=== PATIENT | female | born 1980 | race Caucasian/White ===

== ENCOUNTER 2017-09-13 19:39 | Emergency (ER) | payer SELFPAY ==
[~2017-09-13] VITALS: Ht 167.6 cm; Wt 93.0 kg
[~2017-09-13 19:39] MED LIST: CLON0.5T3; CYCL10TA9 PO; HYDR-1231 PO; METR500T PO; MTF500T PO; NF-VYVAN20; ONDA8TAB13 PO; OXYC-199 PO; PRD20T PO
--- OUTSIDE RECORDS SUMMARY | 2017-09-13 19:47 | XMS REPORT ---
Author Author NISH SHIELDS [facility] Address [address] [place] [address] Care Team Providers Care Cloth Reeler Name Role Phone NISH SHIELDS Unavailable PROBLEMS Type Condition ICD9-CM Code [id number] Code Onset Dates Condition Status SNOMED Code Problem Attention deficit hyperactivity disorder (ADHD), combined type F90.2 Active 302910710 Problem Moderate episode of recurrent major depressive disorder F33.1 Active 127825603 Problem Posttraumatic stress disorder F43.10 Active 11030340 Problem Leukorrhea, not specified as infective 623.5 Active 033523278 Problem Screening examination for venereal disease V74.5 Active 168177737 ALLERGIES No Information SOCIAL HISTORY Never Assessed PLAN OF CARE Activity Details Follow Up 3 Weeks Reason:Depression, ADHD VITAL SIGNS MEDICATIONS Unknown Medications RESULTS No Results PROCEDURES Procedure Date Ordered Result Body Site Psychotherapy, patient &/family, 30 minutes, established patient February 22, 2017 IMMUNIZATIONS No Known Immunizations MEDICAL (GENERAL) HISTORY Type Description Date Medical History Depression Medical History Anxiety Medical History ADHD Surgical History Gallbladder Removal Surgical History Appendectomy Surgical History x 2 Hospitalization History Surgery/childbirth
--- OUTSIDE RECORDS SUMMARY | 2017-09-13 19:47 | XMS REPORT | Continuity of Care Document ---
Author Author Formerly [facility] Address Unknown Phone Unavailable Allergies Active Description Code Type Severity Reaction Onset Reported/Identified Relationship to Patient Clinical Status Yes No Known Drug Allergies [id number] Drug Allergy Unknown N/A 01/24/2013 Medications There is no data. Problems Date Dx Coded Attending Type Code Diagnosis Diagnosed By 09/09/2009 FLO SIMON PHD 296.90 EPISODIC MOOD DISORDERS 09/09/2009 FLO SIMON PHD 525.9 tooth pain 09/09/2009 FLO SIMON PHD 626.0 menstrual periods stopped for over 6 months (amenorrhea) 09/09/2009 FLO SIMON PHD 780.79 feelings of weakness 09/09/2009 [facility] RN, SALLIE A 296.90 EPISODIC MOOD DISORDERS 09/09/2009 [facility] RN, SALLIE A 525.9 tooth pain 09/09/2009 [facility] RN, SALLIE A 626.0 menstrual periods stopped for over 6 months (amenorrhea) 09/09/2009 [facility] RN, SALLIE A 780.79 feelings of weakness 09/09/2009 [facility] RN, SALLIE A 296.90 EPISODIC MOOD DISORDERS 09/09/2009 [facility] RN, SALLIE A 525.9 tooth pain 09/09/2009 [facility] RN, SALLIE A 626.0 menstrual periods stopped for over 6 months (amenorrhea) 09/09/2009 [facility] RN, SALLIE A 780.79 feelings of weakness 04/22/2011 FLO SIMON PHD 314.01 ADHD COMBINED 04/22/2011 [facility] RN, SALLIE A 314.01 ADHD COMBINED 04/22/2011 [facility] RN, SALLIE A 314.01 ADHD COMBINED 05/24/2011 FLO SIMON PHD 300.02 AN GEN ANXIETY 05/24/2011 SALLIE VORA APRN A 300.02 AN GEN ANXIETY 05/24/2011 SALLIE VORA APRN 300.02 AN GEN ANXIETY 10/20/2011 FLO SIMON PHD 309.81 AN PTSD 10/20/2011 ADRIANNE VORA APRNIDI Tray 309.81 AN PTSD 10/20/2011 SALLIE VORA APRN 309.81 AN PTSD 04/04/2014 SALLIE VORA APRN 623.5 LEUKORRHEA NOT SPECIFIED INFECTIVE 04/04/2014 SALLIE VORA APRN V74.5 STD SCREEN 04/04/2014 SALLIE VORA APRN 623.5 LEUKORRHEA NOT SPECIFIED INFECTIVE 04/04/2014 SALLIE VORA APRN V74.5 STD SCREEN Procedures Code [place] [address] PSYCH DIAGNOSTIC EVALUATION 03/26/2014 51712 GC/CHLAM PROBE (STATE) 04/04/2014 82937 TEST, URINE (IN- HOUSE) 04/04/2014 99425 CULTURE UROGENITAL 04/07/2014 21997 TRICHOMONAS (IN-HOUSE) 04/09/2014 Results There is no data. Encounters ACCT No. Visit Date/Time Discharge Status Pt. Type Provider Facility Loc./Unit Complaint [id number] 04/04/2014 11:40:00 04/04/2014 23:59:59 CLS Outpatient SALLIE VORA APRN [id number] 04/04/2014 11:40:00 04/04/2014 23:59:59 CLS Outpatient SALLIE VORA APRN [id number] 03/25/2014 11:09:00 03/25/2014 23:59:59 CLS Outpatient FLO SIMON PHD [id number] 05/21/2014 22:15:00 05/21/2014 23:19:00 DIS Emergency [id number] 05/16/2014 11:15:00 05/16/2014 17:20:00 DIS Outpatient [id number] 05/15/2014 13:01:00 05/15/2014 23:59:59 CLS Outpatient [id number] 05/05/2014 11:01:00 05/05/2014 13:34:00 DIS Emergency [id number] 11/08/2013 01:34:00 11/08/2013 04:15:00 DIS Emergency [id number] 01/24/2013 15:58:00 01/24/2013 18:57:00 DIS Emergency [id number] 09/13/2017 19:43:00 ACT Emergency ELE DE LEON, ANGELICA Mcguire Via [facility] ER 10 WKS PREG/STOMACH PAIN
--- OUTSIDE RECORDS SUMMARY | 2017-09-13 19:47 | XMS REPORT ---
Author Author CHELSI Hartley Organization [facility] Address Unknown Care Team Providers Care Dump Worker Name Role Phone CHELSI Hartley Unavailable PROBLEMS Type Condition ICD9-CM Code HIS96-DY Code Onset Dates Condition Status SNOMED Code Problem Attention deficit hyperactivity disorder (ADHD), combined type F90.2 Active 524543932 Problem Moderate episode of recurrent major depressive disorder F33.1 Active 457089438 Problem Posttraumatic stress disorder F43.10 Active 27329067 Problem Leukorrhea, not specified as infective 623.5 Active 207434270 Problem Screening examination for venereal disease V74.5 Active 653770990 ALLERGIES No Known Allergies SOCIAL HISTORY Never Assessed PLAN OF CARE Activity Details Follow Up 4 Weeks Reason: VITAL SIGNS Height 66 in 2017-01-31 Weight 210.7 lbs 2017-01-31 Heart Rate 80 bpm 2017-01-31 Respiratory Rate 20 2017-01-31 BMI 34.00 kg/m2 2017-01-31 Blood pressure systolic 132 mmHg 2017-01-31 Blood pressure diastolic 86 mmHg 2017-01-31 MEDICATIONS Medication Instructions Dosage Frequency Start Date End Date Duration Status Adderall 20 MG Orally twice a day 1 tablet January, 30 days Active Trileptal 300 MG Orally-voucher twice a day 1 tablet January, 30 days Active RESULTS No Results PROCEDURES Procedure Date Ordered Result Body Site Psych diagnostic evaluation w/medical services, new patient January 31, 2017 IMMUNIZATIONS No Known Immunizations MEDICAL (GENERAL) HISTORY Type Description Date Medical History Depression Medical History Anxiety Medical History ADHD Surgical History Gallbladder Removal Surgical History Appendectomy Surgical History x 2 Hospitalization History Surgery/childbirth
--- NOTE | 2017-09-13 19:54 | ED Abdominal Pain ---
General Stated Complaint: 10 WKS PREG/STOMACH PAIN Source of Information: Patient Exam Limitations: No Limitations History of Present Illness Time Seen By Provider: 19:53 Initial Comments To ER with bilateral lower abdominal pains that began this morning. Pains are worse with certain movements and are sharp. She is 10 weeks' gestation, . No vaginal bleeding. She has not had an ultrasound but she did have a positive test confirmed at the [facility]. Timing/Duration: 12-24 Hours Severity/Quality: Moderate Location: Suprapubic Radiation: No Radiation Activities at Onset: None Allergies and Home Medications Allergies Coded Allergies: No Known Drug Allergies (Unverified , 01/24/13) Home Medications Metformin Hcl 500 Mg Tablet, 500 MG PO BID WITH MEALS, (Reported) Oxycodone Hcl/Acetaminophen 1 Tab Tablet, 1-2 TAB PO Q6H, #35 Prescribed by: ADRI ESPINO on 05/16/14 1524 Review of Systems Constitutional: see HPI EENTM: No Symptoms Reported Respiratory: No Symptoms Reported Cardiovascular: No Symptoms Reported Gastrointestinal: See HPI, Abdominal Pain, Denies Constipated, Denies Diarrhea , Denies Nausea Genitourinary: No Symptoms Reported, Denies Discharge (no vaginal bleeding) Musculoskeletal: no symptoms reported Skin: no symptoms reported Psychiatric/Neurological: No Symptoms Reported Endocrine: No Symptoms Reported Past Rmpgsnv-Gvfzcr-Rhbliw Hx Patient Social History Recent Foreign Travel: No Contact w/Someone Who Travel: No Reproductive System Hx Reproductive Disorders: No Sexually Transmitted Disease: No Psychosocial Behavioral Health Disorders: Anxiety Physical Exam Vital Signs VS - Last 72 Hours, by Label 09/13/17 19:45 Temp 97.0 Pulse 95 Resp 20 B/P (MAP) 119/91 (100) Pulse Ox 98 O2 Delivery Room Air Capillary Refill : General Appearance: WD/WN, no apparent distress HEENT: PERRL/EOMI, normal ENT inspection Neck: non-tender, full range of motion Respiratory: no respiratory distress, no accessory muscle use Cardiovascular: regular rate, rhythm, no murmur Gastrointestinal: normal bowel sounds, non tender, soft Extremities: normal range of motion, non-tender, normal inspection Neurologic/Psychiatric: alert, normal mood/affect, oriented x 3 Skin: normal color, warm/dry Progress/Results/Core Measures Results/Orders Lab Results Laboratory Tests Test 09/13/17 19:55 09/13/17 20:09 Range/Units Urine Color YELLOW Urine Clarity CLEAR Urine pH 6 5-9 Urine Specific [place] 1.015 L 1.016-1.022 Urine Protein NEGATIVE NEGATIVE Urine Glucose (UA) 3+ H NEGATIVE Urine Ketones NEGATIVE NEGATIVE Urine Nitrite NEGATIVE NEGATIVE Urine Bilirubin NEGATIVE NEGATIVE Urine Urobilinogen NORMAL NORMAL MG/DL Urine Leukocyte Esterase NEGATIVE NEGATIVE Urine RBC (Auto) NEGATIVE NEGATIVE Urine RBC NONE /HPF Urine WBC 2-5 /HPF Urine Squamous Epithelial Cells 5-10 /HPF Urine Crystals NONE /LPF Urine Bacteria MODERATE H /HPF Urine Casts NONE /LPF Urine Mucus NEGATIVE /LPF Urine Culture Indicated NO White Blood Count 15.1 H 4.3-11.0 10^3/uL Red Blood Count 4.48 4.35-5.85 10^6/uL Hemoglobin 13.2 11.5-16.0 G/DL Hematocrit 38 35-52 % Mean Corpuscular Volume 85 80-99 FL Mean Corpuscular Hemoglobin 30 25-34 PG Mean Corpuscular Hemoglobin Concent 35 32-36 G/DL Red Cell Distribution Width 12.6 10.0-14.5 % Platelet Count 383 130-400 10^3/uL Mean Platelet Volume 10.5 H 7.4-10.4 FL Neutrophils (%) (Auto) 63 42-75 % Lymphocytes (%) (Auto) 29 12-44 % Monocytes (%) (Auto) 7 0-12 % Eosinophils (%) (Auto) 1 0-10 % Basophils (%) (Auto) 0 0-10 % Neutrophils # (Auto) 9.5 H 1.8-7.8 X 10^3 Lymphocytes # (Auto) 4.4 H 1.0-4.0 X 10^3 Monocytes # (Auto) 1.1 H 0.0-1.0 X 10^3 Eosinophils # (Auto) 0.1 0.0-0.3 10^3/uL Basophils # (Auto) 0.0 0.0-0.1 10^3/uL Neutrophils % (Manual) 71 % Lymphocytes % (Manual) 26 % Monocytes % (Manual) 2 % Eosinophils % (Manual) 0 % Basophils % (Manual) 0 % Band Neutrophils 1 % Blood Morphology Comment NORMAL Human Chorionic Gonadotropin, Quant 95288 H <5 MIU/ML My Orders Orders - JAKE BRANCH SPECIALTY THERAPIST Cbc With Automated Diff (09/13/17 19:51) Hcg,Quantitative (09/13/17 19:51) Ua Culture If Indicated (09/13/17 19:51) Us Ob Single Fetus<14 [id number] (09/13/17 19:51) Manual Differential (09/13/17 20:09) Vital Signs/I&O Vital Sign - Last 12Hours 09/13/17 19:45 Temp 97.0 Pulse 95 Resp 20 B/P (MAP) 119/91 (100) Pulse Ox 98 O2 Delivery Room Air Departure Impression Impression: Primary Impression: Round ligament pain Disposition: HOME, SELF-CARE Condition: Stable Departure-Patient Inst. Decision time for Depature: 21:07 Referrals: HERB TRUONG DENNIS G MD NO,LOCAL PHYSICIAN (PCP) Primary Care Physician PHILIPPE TAN DO Patient Instructions: Round Ligament Pain Add. Discharge Instructions: 1. Return to ER for any concerns 2. Call one of the physicians listed to make an appointment to be seen. JAKE BRANCH SPECIALTY THERAPIST Sep 13, 2017 19:54
[2017-09-13 20:08] LABS: BILIRUBIN,URINE NEGATIVE (NEGATIVE); KETONES,URINE NEGATIVE (NEGATIVE); LEUKOCYTE ESTERASE ,URINE NEGATIVE (NEGATIVE); NITRITE,URINE NEGATIVE (NEGATIVE); PH,URINE 6 (5-9); PROTEIN,URINE NEGATIVE (NEGATIVE); UROBILINOGEN,URINE NORMAL (NORMAL)
[2017-09-13 20:27] LABS: BASOPHILS % (AUTO) 0 % (0-10); EOSINOPHILS # (AUTO) 0.1 10^3/uL (0.0-0.3); EOSINOPHILS % (AUTO) 1 % (0-10); LYMPHOCYTES # (AUTO) 4.4 X 10^3 (1.0-4.0); LYMPHOCYTES % (AUTO) 29 % (12-44); MEAN CORPUSCULAR HEMOGLOBIN 30 PG (25-34); MEAN CORPUSCULAR HGB CONC 35 G/DL (32-36); MEAN CORPUSCULAR VOLUME 85 FL (80-99); MEAN PLATELET VOLUME 10.5 FL (7.4-10.4); MONOCYTES # (AUTO) 1.1 X 10^3 (0.0-1.0); MONOCYTES % (AUTO) 7 % (0-12); NEUTROPHILS # (AUTO) 9.5 X 10^3 (1.8-7.8); NEUTROPHILS % (AUTO) 63 % (42-75); PLATELET COUNT 383 10^3/uL (130-400); RED BLOOD COUNT 4.48 10^6/uL (4.35-5.85); RED CELL DISTRIBUTION WIDTH 12.6 % (10.0-14.5); WHITE BLOOD COUNT 15.1 10^3/uL (4.3-11.0)
[2017-09-13 20:56] LABS: BAND NEUTROPHILS 1 %; BASOPHILS % (MANUAL) 0 %; EOSINOPHILS % (MANUAL) 0 %; LYMPHOCYTES % (MANUAL) 26 %; NEUTROPHILS % (MANUAL) 71 %
--- NOTE | 2017-09-13 21:16 | Diagnostic Imaging Report ---
PROCEDURE: US OB SINGLE FETUS <14 WKS. TECHNIQUE: Multiple real-time grayscale images were obtained over the gravid uterus in various projections. INDICATION: Cramping. FINDINGS: A hendrix intrauterine gestation measures 10 weeks 2 days for a date of confinement 04/09/2018. No subchorionic or geovanna-sac hemorrhage or fluid collection. Cardiac activity at a rate of 150 beats per minute. A right ovarian cyst measuring 2.6 cm showed no suspicious feature. There is no adnexal torsion. No extrauterine gestation. IMPRESSION: Early hendrix viable IUP measuring 10 weeks 2 days. Dictated by: Dictated on workstation # [id number]
[2017-09-13 21:29] VITALS: BP 120/88
== END 2017-09-13 21:29 | disposition home or self-care (01) ==
LOC: EDUNIT# 19:39 → ER 19:43
DX: O99.89 Other specified diseases and conditions complicating pregnancy, childbirth and the puerperium (principal); R10.2 Pelvic and perineal pain; O99.341 Other mental disorders complicating pregnancy, first trimester; F41.9 Anxiety disorder, unspecified; Z79.84 Long term (current) use of oral hypoglycemic drugs; Z3A.10 10 weeks gestation of pregnancy
CPT/HCPCS: 36415; 76801; 81000; 84702; 85007; 85027; 99283

== ENCOUNTER → 2017-11-15 | Outpatient (CLI) | payer MEDICAID ==
--- NOTE | 2017-11-15 12:49 | Diagnostic Imaging Report ---
INDICATION: survey. TECHNIQUE: Multiple real-time grayscale images were obtained over the gravid uterus. COMPARISON: 09/13/2017. FINDINGS: There is a single live fetus in a transverse presentation, head to maternal right. The placenta is posterior. The amniotic fluid volume is normal. heart rate was recorded at 152 beats per minute. kidneys and four-chamber heart view were not well visualized due to position. bladder and stomach are unremarkable. Intracranial structures are unremarkable. There is a three-vessel cord with normal cord insertion. spine is unremarkable. Biometrical measurements are as follows: Biparietal 4.3 cm, age 19 weeks 1 days. Head circumference 16.5 cm, age 19 weeks 2 days. Abdominal circumference 13.9 cm, age 19 weeks 3 days. Femur length 3.0 cm, age 19 weeks 3 days. Sonographic estimate age: 19 weeks 3 days. Sonographic estimated date of delivery: 04/08/18. Estimated Weight: 286 gm (+/- 42 gm). LMP percentile: 47%. heart rate: 152 beats per minute. number: 1 of 1. IMPRESSION: Single live IUP approximately 19 weeks 3 days gestational age with an estimated date of confinement of 04/08/2018. Note is made that the four-chamber heart view and kidney views are not well visualized due to position. Followup ultrasound could be performed. Dictated by: Dictated on workstation # [id number]
== END ==
LOC: RAD 10:10
PROVIDERS: ATTEND Family Medicine
DX: Z36.89 Encounter for other specified antenatal screening (principal); Z3A.19 19 weeks gestation of pregnancy
CPT/HCPCS: 76805

== ENCOUNTER 2017-12-25 22:42 | Outpatient (CLI) | payer MEDICAID ==
[~2017-12-25] VITALS: Ht 167.6 cm; Wt 109.4 kg
[2017-12-25] MEDS ORDERED: PREN-53 PO (23:00)
[2017-12-25 23:10] VITALS: BP 118/76
[2017-12-25] MEDS ORDERED: ACETAMINOPHEN 500 MG TAB (TYLENOL) ONE (23:34)
[2017-12-25] MEDS ORDERED: ACETAMINOPHEN 500 MG TAB (TYLENOL) PO ONE (23:45)
--- NOTE | 2017-12-26 12:19 | Physician Query-Final Dx ---
LAURENCE WOODS 12/26/17 1219: Clinic Account Progress/Dx Physician Query: Please give diagnosis Date of Service Dec 25, 2017 at 22:42 WILBERT PEARSON MD 12/27/17 0717: Clinic Account Progress/Dx DIAGNOSIS: Diagnosis 1. IUP in 2nd trimester 2. Headache 3. Decreased movement--reassuring pattern LAURENCE WOODS Dec 26, 2017 12:19 WILBERT PEARSON MD Dec 27, 2017 07:17
== END 2017-12-25 23:45 | disposition home or self-care (01) ==
LOC: WSo 22:42 → LDRP 22:43 → WSo 23:45
PROVIDERS: ATTEND Family Medicine
DX: O99.89 Other specified diseases and conditions complicating pregnancy, childbirth and the puerperium (principal); R51 Headache; O36.8120 Decreased fetal movements, second trimester, not applicable or unspecified; Z3A.25 25 weeks gestation of pregnancy
CPT/HCPCS: 99212

== ENCOUNTER → 2018-01-04 | Outpatient (CLI) | payer MEDICAID ==
[~2018-01-04] MED LIST changes: +PREN-53 PO
--- NOTE | 2018-01-04 15:40 | Diagnostic Imaging Report ---
INDICATION: Followup kidneys and four-chamber heart. TECHNIQUE: Multiple real-time grayscale images were obtained over the gravid uterus. COMPARISON: 11/15/2017. FINDINGS: There is a single live fetus in a cephalic presentation. The placenta is posterior. The amniotic fluid volume is normal. A limited survey does show the kidneys and four-chamber heart on today's study. heart rate was recorded at 172 beats per minute. Biometrical measurements are as follows: Biparietal 6.61 cm, age 26 weeks 5 days. Head circumference 25.74 cm, age 28 weeks 0 days. Abdominal circumference 25.5 cm, age 29 weeks 5 days. Femur length 5.38 cm, age 28 weeks 4 days. Sonographic estimate age: 28 weeks 2 days. Sonographic estimated date of delivery: 03/27/18. Estimated Weight: 1305 gm (+/- 191 gm). LMP percentile: 98%. heart rate: 172 beats per minute. number: 1 of 1. IMPRESSION: Single live IUP at approximately 28 weeks gestational age. The kidneys and four-chamber heart view were visualized on today's study and appear unremarkable. Dictated by: Dictated on workstation # [id number]
== END ==
LOC: RAD 13:38
PROVIDERS: ATTEND Family Medicine
DX: Z34.92 Encounter for supervision of normal pregnancy, unspecified, second trimester (principal); Z3A.24 24 weeks gestation of pregnancy
CPT/HCPCS: 76816

== ENCOUNTER 2018-02-12 15:44 | Outpatient (CLI) | payer MEDICAID ==
[~2018-02-12] VITALS: Ht 167.6 cm; Wt 109.4 kg
[~2018-02-12 15:44] MED LIST changes: +METF500T5 PO
[2018-02-12 16:06] VITALS: BP 125/86
[2018-02-12 16:25] VITALS: BP 120/64
[2018-02-12 16:45] VITALS: BP 117/72
[2018-02-12 17:00] VITALS: BP 121/79
[2018-02-12 19:55] VITALS: BP 155/87
[2018-02-12 20:00] VITALS: BP 125/66
--- NOTE | 2018-02-13 20:17 | Physician Query-Final Dx ---
JUDE WOODS 02/13/18 2017: Clinic Account Progress/Dx Physician Query: Please give diagnosis Date of Service February 12, 2018 at 15:44 ROXI RAMIREZ DO 02/13/182047: Clinic Account Progress/Dx DIAGNOSIS: Diagnosis O9A.213 - Injury, poisoning and certain other consequences of external causes complicating , third trimester W01.1 - Fall on same level from slipping, tripping and stumbling with subsequent striking against object Z67.10 - Type A Blood, Rh Positive JUDE WOODS February 13, 2018 20:17 ROXI RAMIREZ DO February 13, 2018 20:48
== END 2018-02-12 20:20 | disposition home or self-care (01) ==
LOC: WSo 15:44 → LDRP 15:44 → WSo 20:20
PROVIDERS: ATTEND Family Medicine
DX: O9A.213 Injury, poisoning and certain other consequences of external causes complicating pregnancy, third trimester (principal); W01.10XA Fall on same level from slipping, tripping and stumbling with subsequent striking against unspecified object, initial encounter; Z67.10 Type A blood, Rh positive; Z3A.32 32 weeks gestation of pregnancy
CPT/HCPCS: 85460; 86850; 86900; 86901; 99213

== ENCOUNTER 2018-02-17 16:48 | Outpatient (CLI) | payer MEDICAID ==
[~2018-02-17] VITALS: Ht 168.9 cm; Wt 108.9 kg
[2018-02-17 17:15] VITALS: BP 109/65
[2018-02-17 17:42] LABS: BILIRUBIN,URINE NEGATIVE (NEGATIVE); CLARITY,URINE CLEAR; COLOR,URINE YELLOW; GLUCOSE, URINE (UA) NEGATIVE (NEGATIVE); KETONES,URINE 4+ (NEGATIVE); LEUKOCYTE ESTERASE ,URINE 1+ (NEGATIVE); NITRITE,URINE NEGATIVE (NEGATIVE); PH,URINE 6 (5-9); PROTEIN,URINE NEGATIVE (NEGATIVE); UROBILINOGEN,URINE 1 MG/DL (NORMAL)
[2018-02-17 17:51] LABS: BACTERIA,URINE MODERATE /HPF
[2018-02-17] MEDS ORDERED: NS IV 1000 ML 1,000 ML ONE (18:03)
[2018-02-17] MEDS ORDERED: NS IV 1000 ML 1,000 ML IV ONE (18:15)
[2018-02-17 18:43] LABS: BASOPHILS % (AUTO) 0 % (0-10); EOSINOPHILS # (AUTO) 0.1 10^3/uL (0.0-0.3); EOSINOPHILS % (AUTO) 1 % (0-10); HEMATOCRIT 35 % (35-52); HEMOGLOBIN 11.8 G/DL (11.5-16.0); LYMPHOCYTES # (AUTO) 2.4 X 10^3 (1.0-4.0); LYMPHOCYTES % (AUTO) 23 % (12-44); MEAN CORPUSCULAR HEMOGLOBIN 28 PG (25-34); MEAN CORPUSCULAR HGB CONC 33 G/DL (32-36); MEAN CORPUSCULAR VOLUME 83 FL (80-99); MEAN PLATELET VOLUME 10.5 FL (7.4-10.4); MONOCYTES # (AUTO) 0.7 X 10^3 (0.0-1.0); MONOCYTES % (AUTO) 6 % (0-12); NEUTROPHILS # (AUTO) 7.5 X 10^3 (1.8-7.8); NEUTROPHILS % (AUTO) 70 % (42-75); PLATELET COUNT 256 10^3/uL (130-400); RED BLOOD COUNT 4.26 10^6/uL (4.35-5.85); RED CELL DISTRIBUTION WIDTH 14.2 % (10.0-14.5); WHITE BLOOD COUNT 10.7 10^3/uL (4.3-11.0)
[2018-02-17 18:58] LABS: ALANINE AMINOTRANSFERASE 10 U/L (0-55); ALBUMIN 3.5 GM/DL (3.2-4.5); ALKALINE PHOSPHATASE 59 U/L (40-136); BILIRUBIN,TOTAL 0.3 MG/DL (0.1-1.0); BUN/CREATININE RATIO 18; CALCIUM 8.9 MG/DL (8.5-10.1); CARBON DIOXIDE 17 MMOL/L (21-32); CHLORIDE 109 MMOL/L (98-107); CREATININE SERUM 0.65 MG/DL (0.60-1.30); GFR ESTIMATED > 60; GLUCOSE 92 MG/DL (70-105); POTASSIUM 3.9 MMOL/L (3.6-5.0); SODIUM 136 MMOL/L (135-145); TOTAL PROTEIN 6.9 GM/DL (6.4-8.2)
--- NOTE | 2018-02-21 15:57 | Physician Query-Final Dx ---
JUDE WOODS 02/21/18 1557: Clinic Account Progress/Dx Physician Query: Please give diagnosis Date of Service February 17, 2018 at 16:48 DEEPIKA MONTIEL MD 03/02/18 0940: Clinic Account Progress/Dx DIAGNOSIS: Diagnosis 32 weeks gestation Dizziness Urinary urgency JUDE WOODS February 21, 2018 15:57 DEEPIKA MONTIEL MD Mar 02, 2018 09:40
== END 2018-02-17 20:20 | disposition home or self-care (01) ==
LOC: WSo 16:48 → LDRP 16:48 → WSo 16:57
PROVIDERS: ATTEND Family Medicine
DX: R42 Dizziness and giddiness (principal); R39.15 Urgency of urination; Z3A.32 32 weeks gestation of pregnancy
CPT/HCPCS: 36415; 80053; 81000; 85025; 87088; 96360; 96361; 99213

== ENCOUNTER 2018-03-02 17:20 | Outpatient (CLI) | payer MEDICAID ==
[2018-03-02 17:10] VITALS: BP 123/70
== END 2018-03-02 18:10 | disposition home or self-care (01) ==
LOC: LDRP 17:20 → WSo 17:20
PROVIDERS: ATTEND Family Medicine
DX: O24.419 Gestational diabetes mellitus in pregnancy, unspecified control (principal); Z3A.34 34 weeks gestation of pregnancy
CPT/HCPCS: 59025

== ENCOUNTER → 2018-03-03 | Outpatient (CLI) | payer MEDICAID ==
--- NOTE | 2018-03-03 12:51 | Diagnostic Imaging Report ---
INDICATION: Gestational diabetes. TECHNIQUE: Multiple real-time grayscale images were obtained over the gravid uterus. COMPARISON: 09/13/2017, 11/15/2017, and 01/04/2018. FINDINGS: The prior exam of 01/04/2018 noted a single live fetus at approximately 28 weeks gestation +/-1 week. On this study, the fetus is again identified. The fetus is cephalic in presentation and heart motion was noted with a rate of 143 BPM recorded. There were no obvious abnormalities identified. The growth parameters average at 35 weeks 4 days +/-3.5 weeks. By the first exam, the estimated gestational age should be 34 weeks 5 days. The estimated weight is in the 74th percentile. There were no abnormalities identified. The amniotic fluid index is 10.5 cm (normal 8 to 22 cm). The placenta is posterior and there is no previa. The cervix was not visualized on this study. IMPRESSION: 1. There is a single live fetus at approximately 34 weeks 5 days gestation +/-1 week. The EDC is 04/09/2018. 2. There were no obvious abnormalities identified. 3. The growth parameters have progressed as expected since the prior exam tending towards the high side of normal. Biometrical measurements are as follows: Biparietal 8.5 cm, age 34 weeks 2 days. Head circumference 30.1 cm, age 34 weeks 4 days. Abdominal circumference 34.2 cm, age 38 weeks 1 days. Femur length 6.8 cm, age 34 weeks 6 days. Sonographic estimate age: 35 weeks 4 days. Sonographic estimated date of delivery: 04/03/18. Estimated Weight: 2945 gm (+/- 430 gm). LMP percentile: 90%. heart rate: 143 beats per minute. number: 1 of 1. Dictated by: Dictated on workstation # [id number]
== END ==
LOC: RAD 10:15
PROVIDERS: ATTEND Family Medicine
DX: O24.419 Gestational diabetes mellitus in pregnancy, unspecified control (principal); Z3A.34 34 weeks gestation of pregnancy
CPT/HCPCS: 76816

== ENCOUNTER 2018-03-07 15:53 | Outpatient (CLI) | payer MEDICAID ==
[~2018-03-07] VITALS: Ht 168.9 cm; Wt 108.9 kg
[2018-03-07] MEDS ORDERED: ONDANSETRON 4 MG (ZOFRAN) ORAL DISSOLVE TAB PO ONE (17:15)
[2018-03-07] MEDS ORDERED: NS IV 1000 ML 1,000 ML IV ONE (17:15)
[2018-03-07 19:50] VITALS: BP 110/66
--- NOTE | 2018-03-08 23:41 | Physician Query-Final Dx ---
JUDE WOODS 03/08/18 2341: Clinic Account Progress/Dx Physician Query: Please give diagnosis Date of Service Mar 07, 2018 at 15:53 WILBERT PEARSON MD 03/09/18 0757: Clinic Account Progress/Dx DIAGNOSIS: Diagnosis 1. Intrauterine at 34 weeks gestation 2. Gestational diabetes JUDE WOODS Mar 08, 2018 23:41 WILBERT PEARSON MD Mar 09, 2018 07:57
== END 2018-03-07 20:08 | disposition home or self-care (01) ==
LOC: WSo 15:53 → LDRP 15:55 → WSo 20:08
PROVIDERS: ATTEND Family Medicine
DX: O24.419 Gestational diabetes mellitus in pregnancy, unspecified control (principal); Z3A.34 34 weeks gestation of pregnancy
CPT/HCPCS: 96360; 99213

== ENCOUNTER 2018-03-15 19:00 | Outpatient (CLI) | payer MEDICAID ==
[2018-03-15 19:59] VITALS: BP 112/66
--- NOTE | 2018-03-16 14:48 | Physician Query-Final Dx ---
LAURENCE WOODS 03/16/18 1448: Clinic Account Progress/Dx Physician Query: Please give diagnosis Date of Service Mar 15, 2018 at 19:00 WILBERT PEARSON MD 03/17/18 0722: Clinic Account Progress/Dx DIAGNOSIS: Diagnosis 1. Gestational diabetes 2. IUP at 36 weeks. LAURENCE WOODS Mar 16, 2018 14:48 WILBERT PEARSON MD Mar 17, 2018 07:22
== END 2018-03-15 20:00 ==
LOC: WSo 19:00 → LDRP 19:01 → WSo 20:00
PROVIDERS: ATTEND Family Medicine
DX: O24.419 Gestational diabetes mellitus in pregnancy, unspecified control (principal); Z3A.36 36 weeks gestation of pregnancy
CPT/HCPCS: 59025

== ENCOUNTER 2018-03-22 06:05 | Inpatient (IN) | payer MEDICAID ==
[~2018-03-22] VITALS: Ht 168.9 cm; Wt 108.0 kg
[~2018-03-22 06:05] MED LIST changes: +CITRIC ACID/SOB CIT (BICITRA) 30 ML UDC ONE; +LACTATED RINGERS 1,000 ML IV ONE; +METOCLOPRAMIDE INJ 10 MG/2 ML (REGLAN) ONE; +raNItidine 50 MG/2 ML INJ (ZANTAC) ONE
[2018-03-22 06:15] VITALS: BP 110/72
[2018-03-22] MEDS ORDERED: ceFAZolin 2 GM IV Premixed 50 ML IV ONE (06:15)
--- OUTSIDE RECORDS SUMMARY | 2018-03-22 06:17 | XMS REPORT ---
Author Author NISH SHIELDS Organization [facility] Address [address] [place] [address] Care Team Providers Care Vp Respiratory Name Role Phone ALYSON NISH Unavailable PROBLEMS Type Condition ICD9-CM Code PUJ07-FO Code Onset Dates Condition Status SNOMED Code Problem Screening examination for venereal disease V74.5 Active 046974431 Problem Unspecified mood [affective] disorder F39 Active 62834204 Problem Screening for substance abuse Z13.89 Active 416056176 Problem Posttraumatic stress disorder F43.10 Active 36761078 Problem Leukorrhea, not specified as infective 623.5 Active 684317039 Problem Attention deficit hyperactivity disorder (ADHD), combined type F90.2 Active 520563787 Problem Moderate episode of recurrent major depressive disorder F33.1 Active 915531331 ALLERGIES No Information ENCOUNTERS Encounter Location Date Diagnosis [place] [id number] [place] [address] 06829- 6162 Dec, [place] [address] [address]- 6231 Dec, [place] [id number] [place] [address] 61629- 4991 Dec, [place] [id number] [place] [address] 20009- 3422 30 Nov, 2017 Elevated serum glucose R73.9 [place] [id number] [place] [address] 77427- 4029 Nov, [place] [address] [address]- [address] Nov, [facility] [address] [place] [address] Nov, Encounter for examination and observation for unspecified reason Z04.9 [facility] [address] [place] [address] 22 Nov, 2017 Encounter for examination and observation for unspecified reason Z04.9 [place] [id number] [place] [address] 48067- 0249 21 Nov, 2017 Unspecified mood [affective] disorder F39 [place] [id number] [place] [address] 48904- 0326 21 Nov, 2017 Elevated serum glucose R73.9 [place] [id number] [place] [address] 61835- 9893 14 Nov, 2017 care in second trimester Z34.92 [place] [id number] [place] [address] 19860- 6826 09 Nov, 2017 Screening for substance abuse Z13.89 [place] [id number] [place] [address] 39441- 4400 14 Oct, 2017 Second trimester Z34.92 [place] [id number] [place] [address] 14707- 6879 14 Oct, 2017 [place] [id number] [place] [address] 60352- 7935 Sep, Screening for deficiency anemia Z13.0 [place] [id number] [place] [address] 58475- 9909 Sep, [place] [id number] [place] [address] 50632- 5878 Sep, [place] [id number] [place] [address] 81591- 9715 Sep, Normal in multigravida Z34.80 and Moderate episode of recurrent major depressive disorder F33.1 [place] [id number] [place] [address] 69176- 4457 Sep, [place] [id number] [place] [address] 92896- 1291 Mar, Posttraumatic stress disorder F43.10 ; ADHD (attention deficit hyperactivity disorder) evaluation Z13.89 and Moderate episode of recurrent major depressive disorder F33.1 [facility] [address] [facility] [id number] [address] 15 Feb, 2017 Posttraumatic stress disorder F43.10 [facility] [id number] [address] Feb, Posttraumatic stress disorder F43.10 ; ADHD (attention deficit hyperactivity disorder) evaluation Z13.89 and Moderate episode of recurrent major depressive disorder F33.1 [facility] [id number] [address] January, Moderate episode of recurrent major depressive disorder F33.1 and Attention deficit hyperactivity disorder (ADHD), combined type F90.2 [facility] [id number] [address] 5016 January, Posttraumatic stress disorder F43.10 [facility] [id number] [address] 6066 January, [facility] [id number] [address] 7283 January, Posttraumatic stress disorder F43.10 ; Moderate episode of recurrent major depressive disorder F33.1 and Attention deficit hyperactivity disorder (ADHD), combined type F90.2 [facility] [id number] [address] 8141 January, Posttraumatic stress disorder F43.10 ; ADHD (attention deficit hyperactivity disorder) evaluation Z13.89 and Moderate episode of recurrent major depressive disorder F33.1 [facility] [address] [facility] [id number], [place] [address] January, Moderate episode of recurrent major depressive disorder F33.1 and Posttraumatic stress disorder F43.10 [facility] [id number] [place] [address] 0448 Nov, Posttraumatic stress disorder F43.10 ; ADHD (attention deficit hyperactivity disorder) evaluation Z13.89 and Moderate episode of recurrent major depressive disorder F33.1 [place] [address] [id number] [place] [address] 4201 14 Dec, 2014 [facility] [place] [facility] [address] [id number] [place] [address] 8197 Dec, [facility] [place] [facility] [address] [id number] [place] [address] 7236 Mar, [facility] [place] [facility] [address] [id number] [place] [address] 1053 Mar, [facility] [place] [facility] [address] [id number] [place] [address]- 4304 Mar, [facility] [place] [facility] [address] [id number] [place] [address]- 0644 Mar, [facility] [place] [facility] [address] [id number] [place] [address]- 5955 Mar, [facility] [place] [facility] [address] [id number] [place] [address]- 1312 Mar, [facility] [place] [facility] [address] [id number] [place] [address]- 3204 Mar, [facility] [place] [facility] [address] [id number] [place] [address]- 0110 Mar, [facility] [place] [facility] [address] [id number] [place] [address]- 2859 Feb, [facility] [place] [facility] [address] [id number] [place] [address]- 3756 Feb, [facility] [place] [facility] [address] [id number] [place] [address]- 4324 May, [facility] [place] [facility] [address] [id number] [place] [address]- 0391 January, [facility] [place] [facility] [address] [id number] [place] [address]- 4374 Dec, [facility] [place] [facility] [address] [id number] [place] [address]- 5030 28 Nov, 2011 [facility] [id number] [address]- 8008 Nov, [facility] [address], [place] [address]- 9906 Nov, [facility] [address], [place] [address]- 8916 Nov, [facility] [address], [place] [address]- 1319 Oct, [facility] [address], [place] [address]- 2885 Sep, [facility] [address], [place] [address]- 1636 Sep, [facility] [address], [place] [address]- 0766 Sep, [facility] [address], [place] [address]- 6429 Sep, [facility] [address], [place] [address]- 3366 Aug, [facility] [address], [place] [address]- 8018 Aug, [facility] [id number], [place] [address]- 7856 Aug, IMMUNIZATIONS No Known Immunizations SOCIAL HISTORY Never Assessed REASON FOR VISIT f/u PLAN OF CARE Activity Details Follow Up 4 Weeks Reason:PTSD, ADHD, Depression VITAL SIGNS MEDICATIONS Unknown Medications RESULTS No Results PROCEDURES Procedure Date Ordered Result Body Site Psychotherapy, patient &/family, 30 minutes, established patient March 08, 2017 INSTRUCTIONS MEDICATIONS ADMINISTERED No Known Medications MEDICAL (GENERAL) HISTORY Type Description Date Medical History Depression Medical History Anxiety Medical History ADHD Surgical History Gallbladder Removal Surgical History Appendectomy Surgical History x 2 Hospitalization History Surgery/childbirth
--- OUTSIDE RECORDS SUMMARY | 2018-03-22 06:17 | XMS REPORT ---
Author Author WILBERT PEARSON [facility] Address [address] [place] [address] Care Team Providers Care Retail Advisor Name Role Phone WILBERT PEARSON Unavailable PROBLEMS Type Condition ICD9-CM Code [id number] Code Onset Dates Condition Status SNOMED Code Problem Leukorrhea, not specified as infective 623.5 Active 551914731 Problem Screening examination for venereal disease V74.5 Active 922415457 Problem ADHD, predominantly inattentive type F90.0 Active 51208648 Problem Unspecified mood [affective] disorder F39 Active 12956756 Problem Moderate episode of recurrent major depressive disorder F33.1 Active 285601884 Problem Posttraumatic stress disorder F43.10 Active 38953950 Problem Screening for substance abuse Z13.89 Active 402765514 Problem Attention deficit hyperactivity disorder (ADHD), combined type F90.2 Active 910395454 ALLERGIES No Known Allergies ENCOUNTERS Encounter Location Date Diagnosis [place] [id number] [place] [address] 19751- 8796 31 Mar, 2018 [facility] [place] [facility] [id number] [place] [address] 03681- 1733 27 Feb, 2018 [facility] [place] [facility] [id number] [place] [address] 75608- 8875 Feb, [facility] [place] [facility] [id number] [place] [address] 62668- 0363 Feb, Encounter for supervision of normal in third trimester Z34.93 [facility] [place] [facility] [id number] [place] [address] 39631- 2789 13 Feb, 2018 Third trimester Z34.93 [facility] [place] [facility] [id number] [place] [address] 23943- 4029 13 Feb, 2018 [facility] [place] [facility] [id number] [place] [address]- 2490 Feb, Third trimester Z34.93 [facility] [place] [facility] [id number] [place] [address] 98046- 5408 January, Elevated serum glucose R73.9 and Gestational diabetes mellitus (GDM) in third trimester controlled on oral hypoglycemic drug O24.[address] [facility] [id number] [place] [address] 60150 -7640 January, [facility] [place] [facility] [id number] [place] [address] 81111- 6892 January, [facility] [place] [facility] [address] 67[address]- 2977 January, Third trimester Z34.93 [facility] [place] [facility] [id number] [place] [address] 08547- 8357 January, [facility] [place] [facility] [id number] [place] [address] 61518- 1861 January, Third trimester Z34.93 and Encounter for immunization Z23 [facility] [place] [facility] [id number] [place] [address] 58191- 3166 January, Posttraumatic stress disorder F43.10 and Unspecified mood [ affective] disorder F39 [facility] [place] [facility] [id number] [place] [address] 34533- 8400 January, Posttraumatic stress disorder F43.10 ; Unspecified mood [ affective] disorder F39 and ADHD, predominantly inattentive type F90.0 [facility] [place] [facility] [id number] [place] [address] 46088- 4998 January, [facility] [place] [facility] [id number] [place] [address] 08417- 4215 Dec, Second trimester Z34.[address] [facility] [id number] [place] [address] 68588 -8675 Dec, [facility] [place] [facility] [id number] [place] [address] 01439- 4312 Dec, [facility] [place] [facility] [id number] [place] [address] 74020- 8267 Dec, Screening for deficiency anemia Z13.0 [facility] [place] [facility] [id number] [place] [address] 01985- 7649 Dec, Posttraumatic stress disorder F43.10 ; Unspecified mood [ affective] disorder F39 and ADHD, predominantly inattentive type F90.0 [facility] [place] [facility] [id number] [place] [address] 62865- 6773 Dec, care in second trimester Z34.92 [facility] [place] [facility] [id number] [place] [address] 31103- 1181 Dec, [facility] [place] [facility] [id number] [place] [address] 05982- 7748 Dec, [facility] [place] [facility] [id number] [place] [address] 46704- 2554 Dec, Second trimester Z34.92 [facility] [place] [facility] [id number] [place] [address] 15025- 0282 Dec, [facility] [place] [facility] [id number] [place] [address] 40030- 8070 Nov, Elevated serum glucose R73.9 [facility] [place] [facility] [id number] [place] [address] 63210- 6627 Nov, Unspecified mood [affective] disorder F39 [facility] [place] [facility] [id number] [place] [address] 74756- 1062 Nov, [facility] [address] [place] [address] Nov, Encounter for examination and observation for unspecified reason Z04.9 [facility] [address] [place] [address] Nov, Encounter for examination and observation for unspecified reason Z04.9 [facility] [place] [facility] [id number] [place] [address] 05940- 5669 Nov, Unspecified mood [affective] disorder F39 [facility] [place] [facility] [address] [address]- 2814 Nov, Elevated serum glucose R73.9 [facility] [place] [facility] [address] [address]- 8440 14 Nov, 2017 care in second trimester Z34.92 [facility] [place] [facility] [id number] [place] [address] 88925- 7476 09 Nov, 2017 Screening for substance abuse Z13.89 [facility] [place] [facility] [address] [address]- 5988 14 Oct, 2017 Second trimester Z34.92 [facility] [place] [facility] [id number] [place] [address] 29972- 0336 14 Oct, 2017 [facility] [place] [facility] [id number] [place] [address] 18710- 5962 Sep, Screening for deficiency anemia Z13.0 [facility] [place] [facility] [address] [address]- 8380 Sep, [facility] [place] [facility] [id number] [place] [address] 71825- 0038 Sep, [facility] [place] [facility] [address] [address]- 5866 Sep, Normal in multigravida Z34.80 and Moderate episode of recurrent major depressive disorder F33.1 [facility] [place] [facility] [address] [address]- 4288 Sep, [facility] [place] [facility] [id number] [place] [address] 78970- 4402 Mar, Posttraumatic stress disorder F43.10 ; ADHD (attention deficit hyperactivity disorder) evaluation Z13.89 and Moderate episode of recurrent major depressive disorder F33.1 [facility] [place] [facility] [address] [address]- 1403 Feb, Posttraumatic stress disorder F43.10 [facility] [place] [facility] [address] [facility] [id number] [place] [address]- 3185 Feb, Posttraumatic stress disorder F43.10 ; ADHD (attention deficit hyperactivity disorder) evaluation Z13.89 and Moderate episode of recurrent major depressive disorder F33.1 [facility] [place] [facility] [address] [facility] [id number] [place] [address]- 4596 January, Moderate episode of recurrent major depressive disorder F33.1 and Attention deficit hyperactivity disorder (ADHD), combined type F90.2 [facility] [place] [facility] [address] [id number] [place] [address]- 6046 January, Posttraumatic stress disorder F43.10 [facility] [place] [facility] [address] [facility] [id number] [place] [address]- 3296 January, [facility] [place] [facility] [address] [facility] [id number] [place] [address]- 1076 January, Posttraumatic stress disorder F43.10 ; Moderate episode of recurrent major depressive disorder F33.1 and Attention deficit hyperactivity disorder (ADHD), combined type F90.2 [facility] [place] [facility] [address] [facility] [id number] [place] [address]- 8213 January, Posttraumatic stress disorder F43.10 ; ADHD (attention deficit hyperactivity disorder) evaluation Z13.89 and Moderate episode of recurrent major depressive disorder F33.1 [facility] [place] [facility] [address] [facility] [id number] [place] [address]- 5776 January, Moderate episode of recurrent major depressive disorder F33.1 and Posttraumatic stress disorder F43.10 [facility] [place] [facility] [address] [facility] [id number] [place] [address]- 9102 Nov, Posttraumatic stress disorder F43.10 ; ADHD (attention deficit hyperactivity disorder) evaluation Z13.89 and Moderate episode of recurrent major depressive disorder F33.1 [facility] [place] [facility] [address] [facility] [id number] [place] [address]- 7936 Dec, [facility] [place] [facility] [address] [facility] [id number] [place] [address]- 6850 Dec, [facility] [place] [facility] [address] [id number] [place] [address]- 9652 Mar, [facility] [place] [facility] [address] [id number] [place] [address]- 0490 Mar, [facility] [place] [facility] [address] [id number] [place] [address]- 4119 Mar, [facility] [place] [facility] [address] [id number] [place] [address]- 2550 Mar, [facility] [place] [facility] [address] [id number] [place] [address]- 9858 Mar, [facility] [place] [facility] [address] [id number] [place] [address]- 5061 Mar, [facility] [place] [facility] [address] [id number] [place] [address]- 4630 Mar, [facility] [place] [facility] [address] [id number] [place] [address]- 7824 Mar, [facility] [place] [facility] [address] [id number] [place] [address]- 1774 Feb, [facility] [place] [facility] [address] [id number] [place] [address]- 6295 Feb, [facility] [place] [facility] [address] [id number] [place] [address]- 9774 May, [facility] [place] [facility] [address] [id number] [place] [address]- 1815 January, [facility] [place] [facility] [address] [id number] [place] [address]- 5312 Dec, [facility] [place] [facility] [address] [id number] [place] [address]- 2246 28 Nov, 2011 [facility] [place] [facility] [address] [id number] [place] [address]- 1981 Nov, [facility] [place] [facility] [address] [id number] [address]- 8186 Nov, [facility] [place] [facility] [address] [address]- 5414 Nov, [facility] [place] [facility] [address] [address]- 2842 Oct, [facility] [place] [facility] [address] [address]- 1436 Sep, [facility] [place] [facility] [address] [address]- 1452 Sep, [facility] [place] [facility] [address] [address]- 9935 Sep, [facility] [place] [facility] [address] [address]- 6076 Sep, [facility] [place] [facility] [address] [address]- 7197 Aug, [facility] [place] [facility] [address] [address]- 1479 Aug, [facility] [place] [facility] [address] 9989 Aug, IMMUNIZATIONS No Known Immunizations SOCIAL HISTORY Never Assessed REASON FOR VISIT [id number], Concerned about weight PLAN OF CARE Activity Details Follow Up 4 Weeks, 4 Weeks Reason: VITAL SIGNS Height 66 in 2017-10-12 Weight 226.0 lbs 2017-10-12 Temperature 98.3 degrees Fahrenheit 2017-10-12 Heart Rate 80 bpm 2017-10-12 Respiratory Rate 20 2017-10-12 BMI 36.477 kg/m2 2017-10-12 Blood pressure systolic 112 mmHg 2017-10-12 Blood pressure diastolic 84 mmHg 2017-10-12 MEDICATIONS Medication Instructions Dosage Frequency Start Date End Date Duration Status Trintellix 20 mg Orally twice a day 1 tablet 12h Not-Taking Xanax 1 MG Orally Once a day at bedtime 1 tablet Not-Taking Adderall 20 mg Orally twice a day 1 tablet 12h January, 28 days Not-Taking Diflucan 150 mg take 1 tablet by Oral route once 1 time per day repeat in 3 days Mar, Not-Taking Adderall 20 MG Orally Once a day 1 tablet in the morning 24h Not- Taking Trileptal 300 MG Orally twice a day 1 tablet 12h 08 Jan, 2017 90 days Not-Taking Pre- Active Phentermine HCl 37.5 MG Orally Once a day 1 tablet 24h Not-Taking Fluvoxamine Maleate 50 mg Orally Twice a day .5 tablet 12h Not- Taking RESULTS No Results PROCEDURES Procedure Date Ordered Result Body Site COMPLETE CBC W/AUTO DIFF WBC Oct 12, 2017 SPECIMEN HANDLING Oct 12, 2017 CULTURE, BACTERIA, OTHER Oct 12, 2017 URINE CULTURE/COLONY COUNT Oct 12, 2017 RBC ANTIBODY SCREEN Oct 12, 2017 BLOOD TYPING, ABO Oct 12, 2017 BLOOD TYPING, RH (D) Oct 12, 2017 ASSAY THYROID STIM HORMONE Oct 12, 2017 RUBELLA ANTIBODY Oct 12, 2017 No Charge Oct 12, 2017 ALPHA-FETOPROTEIN, SERUM Oct 12, 2017 INHIBIN A Oct 12, 2017 TRICHOMONAS ASSAY W/OPTIC Oct 12, 2017 ASSAY OF ESTRIOL Oct 12, 2017 CHORIONIC GONADOTROPIN TEST Oct 12, 2017 URINALYSIS, AUTO, W/O SCOPE Oct 12, 2017 VENIPUNCT, ROUTINE* Oct 12, 2017 INSTRUCTIONS MEDICATIONS ADMINISTERED No Known Medications MEDICAL (GENERAL) HISTORY Type Description Date Medical History Depression Medical History Anxiety Medical History ADHD Medical History gestational diabetes Surgical History Gallbladder Removal Surgical History Appendectomy Surgical History x 2 Hospitalization History Surgery/childbirth Hospitalization History Excessive vomiting 12/23/16
--- OUTSIDE RECORDS SUMMARY | 2018-03-22 06:17 | XMS REPORT ---
Author Author WILBERT PEARSON [facility] Address [address] [place] [address] Care Team Providers Care Synoptic Meteorologist Name Role Phone WILBERT PEARSON Unavailable PROBLEMS Type Condition ICD9-CM Code ZBZ26-AB Code Onset Dates Condition Status SNOMED Code Problem Leukorrhea, not specified as infective 623.5 Active 261946914 Problem Screening examination for venereal disease V74.5 Active 589448249 Problem ADHD, predominantly inattentive type F90.0 Active 09335549 Problem Unspecified mood [affective] disorder F39 Active 74548461 Problem Moderate episode of recurrent major depressive disorder F33.1 Active 152036946 Problem Posttraumatic stress disorder F43.10 Active 15994498 Problem Screening for substance abuse Z13.89 Active 422718416 Problem Attention deficit hyperactivity disorder (ADHD), combined type F90.2 Active 278495911 ALLERGIES No Information ENCOUNTERS Encounter Location Date Diagnosis [facility] [id number] [place] [address] 16239- 3370 Mar, [facility] [id number] [place] [address] 37508- 3632 27 Feb, 2018 [facility] [id number] [place] [address] 73937- 1759 Feb, [facility] [id number] [place] [address] 14133- 6444 Feb, Encounter for supervision of normal in third trimester Z34.93 [facility] [id number] [place] [address] 69868- 6786 13 Feb, 2018 Third trimester Z34.93 [facility] [id number] [place] [address] 88910- 0131 13 Feb, 2018 [facility] [address] [place] [address]- 5442 Feb, Third trimester Z34.93 [facility] [id number] [place] [address] 71748- 8226 January, Elevated serum glucose R73.9 and Gestational diabetes mellitus (GDM) in third trimester controlled on oral hypoglycemic drug O24.419 [facility] [id number] [place] [address] 28745 -6132 January, [facility] [id number] [place] [address] 16035- 7181 January, [facility] [address] 79708- 4017 January, Third trimester Z34.93 [facility] [id number] [place] [address] 37479- 5686 January, [facility] [address] 41528- 7772 January, Third trimester Z34.93 and Encounter for immunization Z23 [facility] [id number] [place] [address] 83423- 0794 January, Posttraumatic stress disorder F43.10 and Unspecified mood [ affective] disorder F39 [facility] [id number] [place] [address] 79446- 6322 January, Posttraumatic stress disorder F43.10 ; Unspecified mood [ affective] disorder F39 and ADHD, predominantly inattentive type F90.0 [facility] [id number] [place] [address] 38373- 7512 January, [facility] [id number] [place] [address] 82056- 7818 Dec, Second trimester Z34.92 [facility] [id number] [place] [address] 92638 -6123 Dec, [facility] [id number] [place] [address] 48477- 2380 Dec, [facility] [id number] [place] [address] 51982- 8275 Dec, Screening for deficiency anemia Z13.0 [facility] [id number] [place] [address] 27780- 2030 Dec, Posttraumatic stress disorder F43.10 ; Unspecified mood [ affective] disorder F39 and ADHD, predominantly inattentive type F90.0 [facility] [id number] [place] [address] 03350- 4638 Dec, care in second trimester Z34.92 [facility] [id number] [place] [address] 77604- 7384 Dec, [facility] [id number] [place] [address] 96005- 5627 Dec, [facility] [id number] [place] [address] 07293- 1715 Dec, Second trimester Z34.92 [facility] [id number] [place] [address] 08945- 8781 Dec, [facility] [id number] [place] [address] 15152- 3245 Nov, Elevated serum glucose R73.9 [facility] [id number] [place] [address] 13686- 4626 Nov, Unspecified mood [affective] disorder F39 [facility] [id number] [place] [address] 00971- 7671 Nov, [facility] [address] [place] [address] Nov, Encounter for examination and observation for unspecified reason Z04.9 [facility] [address] [place] [address] Nov, Encounter for examination and observation for unspecified reason Z04.9 [facility] [id number] [place] [address] 79841- 8704 Nov, Unspecified mood [affective] disorder F39 [facility] [address] [address] 5276 Nov, Elevated serum glucose R73.9 [facility] [address] [address]- 2916 14 Nov, 2017 care in second trimester Z34.92 [facility] [address] [place] [address] 58610- 0076 09 Nov, 2017 Screening for substance abuse Z13.89 [facility] [address] [address]- 0958 14 Oct, 2017 Second trimester Z34.92 [facility] [address] [place] [address] 02283- 0428 14 Oct, 2017 [facility] [id number] [place] [address] 25332- 9125 Sep, Screening for deficiency anemia Z13.0 [facility] [address] [address] 2168 Sep, [facility] [id number] [place] [address] 60344- 9540 Sep, [facility] [address] [address]- 9285 Sep, Normal in multigravida Z34.80 and Moderate episode of recurrent major depressive disorder F33.1 [facility] [address] [address]- 4095 Sep, [facility] [address] [place] [address]- 4478 Mar, Posttraumatic stress disorder F43.10 ; ADHD (attention deficit hyperactivity disorder) evaluation Z13.89 and Moderate episode of recurrent major depressive disorder F33.1 [facility] [address] [address]- 5939 Feb, Posttraumatic stress disorder F43.10 [facility] [address] [facility] [id number] [address] 4[address] Feb, Posttraumatic stress disorder F43.10 ; ADHD (attention deficit hyperactivity disorder) evaluation Z13.89 and Moderate episode of recurrent major depressive disorder F33.1 [facility] [address] [facility] [id number] [place] [address]- 7636 January, Moderate episode of recurrent major depressive disorder F33.1 and Attention deficit hyperactivity disorder (ADHD), combined type F90.2 [facility] [address] [facility] [id number] [place] [address]- 1326 January, Posttraumatic stress disorder F43.10 [facility] [address] [facility] [id number] [place] [address]- 7716 January, [facility] [address] [facility] [id number] [place] [address]- 9726 January, Posttraumatic stress disorder F43.10 ; Moderate episode of recurrent major depressive disorder F33.1 and Attention deficit hyperactivity disorder (ADHD), combined type F90.2 [facility] [address] [facility] [id number] [place] [address]- 7016 January, Posttraumatic stress disorder F43.10 ; ADHD (attention deficit hyperactivity disorder) evaluation Z13.89 and Moderate episode of recurrent major depressive disorder F33.1 [facility] [address] [facility] [id number] [place] [address]- 3566 January, Moderate episode of recurrent major depressive disorder F33.1 and Posttraumatic stress disorder F43.10 [facility] [address] [facility] [id number] [place] [address]- 4919 Nov, Posttraumatic stress disorder F43.10 ; ADHD (attention deficit hyperactivity disorder) evaluation Z13.89 and Moderate episode of recurrent major depressive disorder F33.1 [facility] [address] [facility] [id number] [place] [address] 2546 Dec, [facility] [address] [facility] [id number] [address]- 0336 Dec, [facility] [place] [facility] [address] [id number] [place] [address]- 1802 Mar, [facility] [place] [facility] [address] [id number] [place] [address]- 0456 Mar, [facility] [place] [facility] [address] [id number] [place] [address]- 7506 Mar, [facility] [place] [facility] [address] [id number] [place] [address]- 4841 Mar, [facility] [place] [facility] [address] [id number] [place] [address]- 8543 Mar, [facility] [place] [facility] [address] [id number] [place] [address]- 9854 Mar, [facility] [place] [facility] [address] [id number] [place] [address]- 0071 Mar, [facility] [place] [facility] [address] [id number] [place] [address]- 8045 Mar, [facility] [place] [facility] [address] [id number] [place] [address]- 0782 Feb, [facility] [place] [facility] [address] [id number] [place] [address]- 1681 Feb, [facility] [place] [facility] [address] [id number] [place] [address]- 6375 May, [facility] [place] [facility] [address] [id number] [place] [address]- 5573 January, [facility] [place] [facility] [address] [id number] [place] [address]- 3986 Dec, [facility] [place] [facility] [address] [id number] [place] [address]- 7646 28 Nov, 2011 [facility] [place] [facility] [address] [id number] [place] [address]- 5261 Nov, [facility] [place] [facility] [address] [id number], [place] [address]- 3053 Nov, [facility] [id number] [address]- 6130 Nov, [facility] [address], [place] [address]- 6800 Oct, [facility] [address], [place] [address]- 5812 Sep, [facility] [address], [place] [address]- 2876 Sep, [facility] [address], [place] [address]- 9980 Sep, [facility] [address], [place] [address]- 2029 Sep, [facility] [address], [place] [address]- 9728 Aug, [facility] [address], [place] [address]- 9971 Aug, [facility] [address], [place] [address]- 7558 Aug, IMMUNIZATIONS No Known Immunizations SOCIAL HISTORY Never Assessed REASON FOR VISIT Requests return call PLAN OF CARE VITAL SIGNS MEDICATIONS Unknown Medications RESULTS No Results PROCEDURES No Known procedures INSTRUCTIONS MEDICATIONS ADMINISTERED No Known Medications MEDICAL (GENERAL) HISTORY Type Description Date Medical History Depression Medical History Anxiety Medical History ADHD Medical History gestational diabetes Surgical History Gallbladder Removal Surgical History Appendectomy Surgical History x 2 Hospitalization History Surgery/childbirth Hospitalization History Excessive vomiting 12/23/16
--- OUTSIDE RECORDS SUMMARY | 2018-03-22 06:18 | XMS REPORT ---
Author Author NISH SHIELDS Organization [facility] Address [address] [place] [address] Care Team Providers Care Plasterer Journeyman Name Role Phone NISH SHIELDS Unavailable PROBLEMS Type Condition ICD9-CM Code VXG81-PR Code Onset Dates Condition Status SNOMED Code Problem Screening examination for venereal disease V74.5 Active 432329898 Problem Unspecified mood [affective] disorder F39 Active 42973629 Problem Screening for substance abuse Z13.89 Active 685365559 Problem Posttraumatic stress disorder F43.10 Active 41831008 Problem Leukorrhea, not specified as infective 623.5 Active 424690843 Problem Attention deficit hyperactivity disorder (ADHD), combined type F90.2 Active 233271202 Problem Moderate episode of recurrent major depressive disorder F33.1 Active 199508144 ALLERGIES No Information ENCOUNTERS Encounter Location Date Diagnosis [address] [address]- 8628 Dec, [address] 80348- 8723 Dec, [facility] [id number] [place] [address] 41753- 4887 Dec, [facility] [id number] [place] [address] 97768- 5674 Dec, [facility] [id number] [place] [address] 14920- 1820 Nov, Elevated serum glucose R73.9 [facility] [address] 04519- 8101 Nov, [facility] [id number] [place] [address] 87665- 1549 Nov, [address] [place] [address] Nov, Encounter for examination and observation for unspecified reason Z04.9 [facility] [address] [place] [address] Nov, Encounter for examination and observation for unspecified reason Z04.9 [facility] [address] [place] [address] 70548- 2374 Nov, Unspecified mood [affective] disorder F39 [facility] [id number] [place] [address] 98057- 5906 Nov, Elevated serum glucose R73.9 [facility] [id number] [place] [address] 55033- 7723 14 Nov, 2017 care in second trimester Z34.92 [id number] [place] [address] 15460- 4636 09 Nov, 2017 Screening for substance abuse Z13.89 [address] [id number] [place] [address] 45283- 8238 14 Oct, 2017 Second trimester Z34.92 [facility] [id number] [place] [address] 63570- 1944 14 Oct, 2017 [facility] [id number] [place] [address] 29828- 1206 Sep, Screening for deficiency anemia Z13.0 [facility] [id number] [place] [address] 27166- 0844 Sep, [facility] [id number] [place] [address] 65531- 0306 Sep, [facility] [id number] [place] [address] 88457- 6383 Sep, Normal in multigravida Z34.80 and Moderate episode of recurrent major depressive disorder F33.1 [facility] [address] [place] [address] 55125- 5177 Sep, [facility] [address] [address]- 4260 Mar, Posttraumatic stress disorder F43.10 ; ADHD (attention deficit hyperactivity disorder) evaluation Z13.89 and Moderate episode of recurrent major depressive disorder F33.1 [facility] [address] [address]- 6357 Feb, Posttraumatic stress disorder F43.10 [facility] [address] [address]- 9512 Feb, Posttraumatic stress disorder F43.10 ; ADHD (attention deficit hyperactivity disorder) evaluation Z13.89 and Moderate episode of recurrent major depressive disorder F33.1 [facility] [address] [address]- 7730 January, Moderate episode of recurrent major depressive disorder F33.1 and Attention deficit hyperactivity disorder (ADHD), combined type F90.2 [facility] [address] [address]- 3154 January, Posttraumatic stress disorder F43.10 [facility] [address] [address]- 3411 January, [facility] [address] [address]- 1242 January, Posttraumatic stress disorder F43.10 ; Moderate episode of recurrent major depressive disorder F33.1 and Attention deficit hyperactivity disorder (ADHD), combined type F90.2 [facility] [address] [address]- 5022 January, Posttraumatic stress disorder F43.10 ; ADHD (attention deficit hyperactivity disorder) evaluation Z13.89 and Moderate episode of recurrent major depressive disorder F33.1 [facility] [address] [address]- 6626 January, Moderate episode of recurrent major depressive disorder F33.1 and Posttraumatic stress disorder F43.10 [facility] [id number] [address]- 1081 28 Mar, 2017 Posttraumatic stress disorder F43.10 ; ADHD (attention deficit hyperactivity disorder) evaluation Z13.89 and Moderate episode of recurrent major depressive disorder F33.1 [facility] [address] [id number] [place] [address]- 4506 14 Dec, 2014 [facility] [address] [id number] [place] [address]- 0476 Dec, [facility] [address] [id number] [place] [address]- 2213 Mar, [facility] [address] [id number] [place] [address]- 0234 Mar, [facility] [address] [id number] [place] [address]- 0012 Mar, [facility] [address] [facility] [id number] [place] [address]- 3902 Mar, [facility] [address] [facility] [id number] [place] [address]- 3756 Mar, [facility] [address] [facility] [id number] [place] [address]- 3550 Mar, [facility] [address] [facility] [id number] [place] [address]- 8165 Mar, [facility] [address] [facility] [id number] [place] [address]- 1007 Mar, [facility] [address] [facility] [id number] [address]- 0165 Feb, [facility] [address] [id number] [place] [address]- 7166 Feb, [facility] [address] [facility] [id number] [place] [address]576 May, [facility] [address] [facility] [id number] [place] [address]- 5077 January, [facility] [address] [facility] [id number] [place] [address]- 0423 Dec, [facility] [id number] [address]- 3656 Nov, [facility] [address] [address]- 2546 Nov, [facility] [address] [address]- 2546 Nov, [facility] [address] [address]- 2546 Nov, [facility] [address] [address]- 2546 Oct, [facility] [address] [address]- 2546 Sep, [facility] [address] [address]- 2546 Sep, [facility] [address] [address]- 2546 Sep, [facility] [address] [address]- 9086 Sep, [facility] [address] [address]- 0276 Aug, [facility] [id number] [address]- 2066 Aug, [facility] [address] [address]- 2546 Aug, IMMUNIZATIONS No Known Immunizations SOCIAL HISTORY Never Assessed REASON FOR VISIT f/u PLAN OF CARE Activity Details Follow Up 1 Week Reason:Depression VITAL SIGNS MEDICATIONS Unknown Medications RESULTS No Results PROCEDURES Procedure Date Ordered Result Body Site Psychotherapy, patient &/family, 30 minutes, established patient April 14, 2017 INSTRUCTIONS MEDICATIONS ADMINISTERED No Known Medications MEDICAL (GENERAL) HISTORY Type Description Date Medical History Depression Medical History Anxiety Medical History ADHD Surgical History Gallbladder Removal Surgical History Appendectomy Surgical History x 2 Hospitalization History Surgery/childbirth
--- OUTSIDE RECORDS SUMMARY | 2018-03-22 06:18 | XMS REPORT ---
Author Author WILBERT PEARSON [facility] Address [address] [place] [address] Care Team Providers Care Copy Camera Operator Name Role Phone WILBERT PEARSON Unavailable PROBLEMS Type Condition ICD9-CM Code FHL41-TS Code Onset Dates Condition Status SNOMED Code Problem Leukorrhea, not specified as infective 623.5 Active 645923482 Problem Screening examination for venereal disease V74.5 Active 436628001 Problem ADHD, predominantly inattentive type F90.0 Active 84109116 Problem Unspecified mood [affective] disorder F39 Active 63493252 Problem Moderate episode of recurrent major depressive disorder F33.1 Active 439887591 Problem Posttraumatic stress disorder F43.10 Active 13939378 Problem Screening for substance abuse Z13.89 Active 105410320 Problem Attention deficit hyperactivity disorder (ADHD), combined type F90.2 Active 948024656 ALLERGIES No Information ENCOUNTERS Encounter Location Date Diagnosis [facility] [id number] [place] [address] 03621- 8680 Mar, [facility] [id number] [place] [address] 63326- 7426 27 Feb, 2018 [facility] [id number] [place] [address] 02538- 3355 Feb, [facility] [id number] [place] [address] 59855- 7637 Feb, Encounter for supervision of normal in third trimester Z34.93 [facility] [id number] [place] [address] 04223- 9697 13 Feb, 2018 Third trimester Z34.93 [facility] [id number] [place] [address] 22460- 8226 13 Feb, 2018 [facility] [address] [place] [address] 8798 Feb, Third trimester Z34.93 [facility] [id number] [place] [address] 06914- 4342 January, Elevated serum glucose R73.9 and Gestational diabetes mellitus (GDM) in third trimester controlled on oral hypoglycemic drug O24.419 [facility] [id number] [place] [address] 20135 -8830 January, [facility] [id number] [place] [address] 77734- 8239 January, [facility] [address] [address]- 0229 January, Third trimester Z34.93 [facility] [id number] [place] [address] 38656- 0706 January, [facility] [address] 31992- 9399 January, Third trimester Z34.93 and Encounter for immunization Z23 [facility] [id number] [place] [address] 85107- 8629 January, Posttraumatic stress disorder F43.10 and Unspecified mood [ affective] disorder F39 [facility] [id number] [place] [address] 43278- 2153 January, Posttraumatic stress disorder F43.10 ; Unspecified mood [ affective] disorder F39 and ADHD, predominantly inattentive type F90.0 [facility] [id number] [place] [address] 84932- 7080 January, [facility] [id number] [place] [address] 73506- 1791 Dec, Second trimester Z34.92 [facility] [id number] [place] [address] 46685 -2411 Dec, [facility] [id number] [place] [address] 40464- 1262 Dec, [facility] [id number] [place] [address] 33706- 7072 Dec, Screening for deficiency anemia Z13.0 [facility] [id number] [place] [address] 39736- 0711 Dec, Posttraumatic stress disorder F43.10 ; Unspecified mood [ affective] disorder F39 and ADHD, predominantly inattentive type F90.0 [facility] [id number] [place] [address] 32667- 0023 Dec, care in second trimester Z34.92 [facility] [id number] [place] [address] 36305- 8004 Dec, [facility] [id number] [place] [address] 13446- 4844 Dec, [facility] [id number] [place] [address] 27805- 3307 Dec, Second trimester Z34.92 [facility] [id number] [place] [address] 67040- 7494 Dec, [facility] [id number] [place] [address] 52283- 4916 Nov, Elevated serum glucose R73.9 [facility] [id number] [place] [address] 84458- 3767 Nov, Unspecified mood [affective] disorder F39 [facility] [id number] [place] [address] 70709- 7075 Nov, [facility] [address] [place] [address] Nov, Encounter for examination and observation for unspecified reason Z04.9 [facility] [address] [place] [address] Nov, Encounter for examination and observation for unspecified reason Z04.9 [facility] [id number] [place] [address] 69022- 5853 Nov, Unspecified mood [affective] disorder F39 [facility] [address] [address] 16[address] Nov, Elevated serum glucose R73.9 [facility] [address] [address]- 3158 14 Nov, 2017 care in second trimester Z34.92 [facility] [address] [place] [address] 25662- 7309 09 Nov, 2017 Screening for substance abuse Z13.89 [facility] [address] [address] 51[address] 14 Oct, 2017 Second trimester Z34.92 [facility] [address] [place] [address] 26805- 0315 14 Oct, 2017 [facility] [id number] [place] [address] 42823- 8302 Sep, Screening for deficiency anemia Z13.0 [facility] [address] [address] 5509 Sep, [facility] [id number] [place] [address] 96830- 0451 Sep, [facility] [address] [address]- 2713 Sep, Normal in multigravida Z34.80 and Moderate episode of recurrent major depressive disorder F33.1 [facility] [address] [address]- 4941 Sep, [facility] [address] [address]- 7926 Mar, Posttraumatic stress disorder F43.10 ; ADHD (attention deficit hyperactivity disorder) evaluation Z13.89 and Moderate episode of recurrent major depressive disorder F33.1 [facility] [address] [address]- 6047 Feb, Posttraumatic stress disorder F43.10 [facility] [address] [facility] [id number] [address] 1466 Feb, Posttraumatic stress disorder F43.10 ; ADHD (attention deficit hyperactivity disorder) evaluation Z13.89 and Moderate episode of recurrent major depressive disorder F33.1 [facility] [address] [facility] [id number] [place] [address]- 7976 January, Moderate episode of recurrent major depressive disorder F33.1 and Attention deficit hyperactivity disorder (ADHD), combined type F90.2 [facility] [address] [facility] [id number] [place] [address]- 1726 January, Posttraumatic stress disorder F43.10 [facility] [address] [facility] [id number] [place] [address]- 7856 January, [facility] [address] [facility] [id number] [place] [address]- 4366 January, Posttraumatic stress disorder F43.10 ; Moderate episode of recurrent major depressive disorder F33.1 and Attention deficit hyperactivity disorder (ADHD), combined type F90.2 [facility] [address] [facility] [id number] [place] [address]- 9506 January, Posttraumatic stress disorder F43.10 ; ADHD (attention deficit hyperactivity disorder) evaluation Z13.89 and Moderate episode of recurrent major depressive disorder F33.1 [facility] [address] [facility] [id number] [place] [address]- 4186 January, Moderate episode of recurrent major depressive disorder F33.1 and Posttraumatic stress disorder F43.10 [facility] [address] [facility] [id number] [place] [address]- 5593 Nov, Posttraumatic stress disorder F43.10 ; ADHD (attention deficit hyperactivity disorder) evaluation Z13.89 and Moderate episode of recurrent major depressive disorder F33.1 [facility] [address] [facility] [id number] [place] [address] 2546 Dec, [facility] [address] [facility] [id number] [address]- 6626 Dec, [facility] [place] [facility] [address] [id number] [place] [address]- 8128 Mar, [facility] [place] [facility] [address] [id number] [place] [address]- 5099 Mar, [facility] [place] [facility] [address] [id number] [place] [address]- 5004 Mar, [facility] [place] [facility] [address] [id number] [place] [address]- 7943 Mar, [facility] [place] [facility] [address] [id number] [place] [address]- 2767 Mar, [facility] [place] [facility] [address] [id number] [place] [address]- 9354 Mar, [facility] [place] [facility] [address] [id number] [place] [address]- 1134 Mar, [facility] [place] [facility] [address] [id number] [place] [address]- 2914 Mar, [facility] [place] [facility] [address] [id number] [place] [address]- 9626 Feb, [facility] [place] [facility] [address] [id number] [place] [address]- 7955 Feb, [facility] [place] [facility] [address] [id number] [place] [address]- 7043 May, [facility] [place] [facility] [address] [id number] [place] [address]- 4801 January, [facility] [place] [facility] [address] [id number] [place] [address]- 9389 Dec, [facility] [place] [facility] [address] [id number] [place] [address]- 8056 28 Nov, 2011 [facility] [place] [facility] [address] [id number] [place] [address]- 0113 Nov, [facility] [place] [facility] [address] [id number] [address]- 8586 Nov, [facility] [id number] [address]- 0286 Nov, [facility] [address] [address]- 9056 Oct, [facility] [address] [address]- 3126 Sep, [facility] [address] [place] [address] 22868- 3676 Sep, [facility] [address] [address]- 3476 Sep, [facility] [address] [place] [address] 95092- 6686 Sep, [facility] [address] [address]- 0580 Aug, [facility] [address] [address]- 2624 Aug, [facility] [id number] [address]- 2697 Aug, IMMUNIZATIONS No Known Immunizations SOCIAL HISTORY Never Assessed REASON FOR VISIT [facility] Hemoglobin PLAN OF CARE VITAL SIGNS MEDICATIONS Unknown Medications RESULTS Name Result Date Reference Range HEMOGLOBIN (IN HOUSE) 2017-10-19 HEMOGLOBIN 11.7 11.5 - 16 gm/dL Lot # [id number] Exp date 09/01/18 PROCEDURES Procedure Date Ordered Result Body Site HEMOGLOBIN Oct 19, 2017 INSTRUCTIONS MEDICATIONS ADMINISTERED No Known Medications MEDICAL (GENERAL) HISTORY Type Description Date Medical History Depression Medical History Anxiety Medical History ADHD Medical History gestational diabetes Surgical History Gallbladder Removal Surgical History Appendectomy Surgical History x 2 Hospitalization History Surgery/childbirth Hospitalization History Excessive vomiting 12/23/16
[2018-03-22] MEDS ORDERED: METOCLOPRAMIDE INJ 10 MG/2 ML (REGLAN) IV ONE (06:30)
[2018-03-22] MEDS ORDERED: CITRIC ACID/SOB CIT (BICITRA) 30 ML UDC PO ONE (06:30)
[2018-03-22 06:44] LABS: BASOPHILS % (AUTO) 0 % (0-10); EOSINOPHILS # (AUTO) 0.1 10^3/uL (0.0-0.3); EOSINOPHILS % (AUTO) 1 % (0-10); HEMATOCRIT 36 % (35-52); HEMOGLOBIN 12.5 G/DL (11.5-16.0); LYMPHOCYTES # (AUTO) 3.1 X 10^3 (1.0-4.0); LYMPHOCYTES % (AUTO) 29 % (12-44); MEAN CORPUSCULAR HEMOGLOBIN 28 PG (25-34); MEAN CORPUSCULAR HGB CONC 35 G/DL (32-36); MEAN CORPUSCULAR VOLUME 82 FL (80-99); MEAN PLATELET VOLUME 11.2 FL (7.4-10.4); MONOCYTES # (AUTO) 0.7 X 10^3 (0.0-1.0); MONOCYTES % (AUTO) 7 % (0-12); NEUTROPHILS # (AUTO) 6.5 X 10^3 (1.8-7.8); NEUTROPHILS % (AUTO) 62 % (42-75); PLATELET COUNT 268 10^3/uL (130-400); RED BLOOD COUNT 4.43 10^6/uL (4.35-5.85); RED CELL DISTRIBUTION WIDTH 14.2 % (10.0-14.5); WHITE BLOOD COUNT 10.4 10^3/uL (4.3-11.0)
[2018-03-22] MEDS: LACTATED RINGERS 1,000 ML IV PRN ×2 (06:49→07:50)
[2018-03-22] MEDS ORDERED: fentaNYL INJECTION 100 MCG/2 ML AMP ONE (06:50)
[2018-03-22] MEDS ORDERED: LIDOCAINE 1% INJ 20 ML 20 ML VIAL ONE (06:50)
[2018-03-22] MEDS ORDERED: BUPIVACAINE 0.5% 30 ML (SENSORCAINE) VIAL ONE (06:50)
[2018-03-22] MEDS ORDERED: OXYTOCIN/NORMAL SALINE 1,000 ML IV ONE (06:52)
[2018-03-22] MEDS ORDERED: ceFAZolin 2 GM IV Premixed 50 ML ONE (06:55)
--- NOTE | 2018-03-22 07:20 | History & Physical-OB ---
OB - Chief Complaint & HPI Date/Time Date of Admission: Date of Admission: Mar 22, 2018 at 06:05 Time Seen by Provider: 07:05 Chief Complaint/History OB-Reason for Admission/Chief: Section Hx : 3 Hx Para: 2 Expected Date of Delivery: Apr 08, 2018 Gestational Age in Weeks: 37 Gestational Age in Days: 4 Indication for : desires repeat Other reason for admission: Delivery due to borderline oligo, GDM, and AMA Admission Nurse Assessment Rev: Yes History of Labs A pos Antibody neg RI RPR NR HBsAg NR HIV NR GC neg Allergies and Home Medications Allergies Coded Allergies: No Known Drug Allergies (Unverified , 03/20/18) Home Medications Metformin HCl 500 Mg Tablet, 1,000 PO BID, (Reported) take 2 in am and 1 at night Btx356/Iron Fumarate/FA/Dss 1 Each Tablet, 1 EACH PO DAILY, (Reported) Patient Home Medication List Home Medication List Reviewed: Yes OB - History Hx of Present Care: Yes Ultrasounds: Normal mid trimester US, Other (most recent US 5 cm HIREN, limited imaging due to body hab) Obstetrical Complications: Gestational Diabetes Medical Complications: Other (AMA) Delivery History Hx Blood Disorders: No Adverse Rxn to Tranfusion: No (N/A) Patient Past Medical History BMI 37 Social History/Family History HIV/AIDS: No Recent Infectious Disease Expo: No Sexually Transmitted Disease: No Alcohol Use: Denies Use Recreational Drug Use: No OB - Admission Exam Physical Exam HEENT: NCAT Heart: Rhythm Normal Lungs: Clear Abdomen: Gravid Extremities: Normal Reflexes: Normal Heart Rate: 130's Accelerations: Accelerations Present Decelerations: No Decelerations Short Term Variability: Present Prison Variability: Average (6-25) Contractions on Admission: >10 Minutes Apart Intensity: Mild Labs Laboratory Tests Test 03/22/18 06:25 03/22/18 06:36 Range/Units White Blood Count 10.4 4.3-11.0 10^3/uL Red Blood Count 4.43 4.35-5.85 10^6/uL Hemoglobin 12.5 11.5-16.0 G/DL Hematocrit 36 35-52 % Mean Corpuscular Volume 82 80-99 FL Mean Corpuscular Hemoglobin 28 25-34 PG Mean Corpuscular Hemoglobin Concent 35 32-36 G/DL Red Cell Distribution Width 14.2 10.0-14.5 % Platelet Count 268 130-400 10^3/uL Mean Platelet Volume 11.2 H 7.4-10.4 FL Neutrophils (%) (Auto) 62 42-75 % Lymphocytes (%) (Auto) 29 12-44 % Monocytes (%) (Auto) 7 0-12 % Eosinophils (%) (Auto) 1 0-10 % Basophils (%) (Auto) 0 0-10 % Neutrophils # (Auto) 6.5 1.8-7.8 X 10^3 Lymphocytes # (Auto) 3.1 1.0-4.0 X 10^3 Monocytes # (Auto) 0.7 0.0-1.0 X 10^3 Eosinophils # (Auto) 0.1 0.0-0.3 10^3/uL Basophils # (Auto) 0.0 0.0-0.1 10^3/uL Glucometer 84 70-110 MG/DL OB - Assessment/Plan/Diagnosis Assessment Assessment: section Admission Dx 37 yo @ 37.4 Oligohydramnios AMA GDMA-2 BMI 37 Admission Status: Inpatient Order (span 2 midnights) Reason for Inpatient Admission: 37 yo @ 37.4 Oligohydramnios AMA GDMA-2 BMI 37 Plan Plan: Section Discharge Diagnosis Diagnosis: POD 2 HERB RAY DO Mar 22, 2018 07:20
[2018-03-22] MEDS ORDERED: OXYTOCIN/NORMAL SALINE 500 ML IV SCH (07:26)
[2018-03-22] MEDS ORDERED: HYDROmorphone 1 MG/ML (DILAUDID) 1 ML SYRINGE IV PRN ×2 (07:30→08:45)
[2018-03-22] MEDS ORDERED: MEASLES,MUMPS,RUBELLA 1 EA INJ SC SCH (07:30)
[2018-03-22] MEDS ORDERED: TETANUS,DIPTH,PERTUSS P/F (BOOSTRIX) 0.5 ML VIAL IM SCH (07:30)
[2018-03-22] MEDS ORDERED: ONDANSETRON 4 MG/2 ML (SDV) Z0FRAN IVP PRN ×2 (07:30→08:45)
[2018-03-22] MEDS ORDERED: PHENYLEPHRINE 100 MCG/ML 10 ML (ANESTHESIA) SYR ONE (08:13)
[2018-03-22] MEDS ORDERED: MEPERIDINE (DEMEROL) INJ 50 MG/ML IVP PRN (08:45)
[2018-03-22] MEDS ORDERED: fentaNYL INJECTION 100 MCG/2 ML AMP IVP PRN (08:45)
[2018-03-22] MEDS: KETOROLAC 30 MG/ML VIAL IVP SCH ×3 (09:54→21:06)
[2018-03-22 10:17] VITALS: BP 114/81
--- NOTE | 2018-03-22 13:44 | OPERATIVE REPORT ---
DATE OF SERVICE: PREOPERATIVE DIAGNOSES: 1. A 37-year-old G3, P2 at 37 weeks gestation. 2. Oligohydramnios. 3. Advanced maternal age. 4. Gestational diabetes mellitus A2. 5. BMI of 37. POSTOPERATIVE DIAGNOSES: 1. A 37-year-old G3, P2 at 37 weeks gestation. 2. Oligohydramnios. 3. Advanced maternal age. 4. Gestational diabetes mellitus A2. 5. BMI of 37. 6. Dense anterior abdominal wall adhesions and peritoneal adhesions. SURGEON: Dr. Galdino Lance. EMBOSSING UNIT OPERATOR: Dr. Kvng Dwyer. ANESTHESIA: Spinal. ESTIMATED BLOOD LOSS: 600 mL. URINE OUTPUT: 100 mL clear at the end of the procedure. FLUIDS: 2000 mL lactated Ringer solution. FINDINGS: A live female infant weighing 8 pounds 4 ounces, Apgars of 9 and 9. Grossly normal appearing bilateral fallopian tubes and ovaries with several subserosal fibroids and intramural fibroids that were encountered during my uterine incision. There were also dense adhesions of the anterior uterine fundus to the anterior pelvic peritoneal wall. SPECIMENS SENT: Placenta. INDICATIONS: Please see my preoperative consultation and note for complete details pertaining to indications for procedure. DESCRIPTION OF PROCEDURE: The patient was taken to the operating room where spinal anesthesia was found to be adequate. She was placed in the supine position with a leftward tilt, prepped and draped in normal sterile fashion. A timeout was performed. Anesthesia was tested. A Pfannenstiel skin incision was then made through the previously existing scar using a knife and carried down to the underlying fascia using Bovie cautery. Fascial incision extended laterally using Bovie cautery. Superior aspect of the fascial incision was then grasped with Ines clamps, tented up and dissected off the underlying rectus muscle. The inferior aspect of the fascial incision was then grasped with Ines clamps, tented upward and dissected off the underlying rectus muscles. The rectus muscles were then dissected down the midline using Blakely scissors. The peritoneum is densely adhesed to the anterior portion of the uterus, I have to take this down carefully. Care was taken to stay high in the peritoneum and dissect downward staying close to the uterus and my dissection planes in order to avoid the bladder. Once I freed up all of the dense and filmy adhesions surrounding the uterus, I then able to identify the lower uterine segment. I make an incision to the vesicouterine peritoneum of the lower uterine segment and bluntly dissected this off the lower uterine segment. I then proceeded with myotomy until membranes were visualized, at which point I ruptured membranes using an Allis clamp. Clear fluid was noted. The was found in the vertex presentation. With gentle fundal pressure, the 's head was delivered through the incision where the nares and oropharynx were then bulb suctioned. Anterior and posterior shoulders were delivered. The infant was then brought to the operative field where cord was doubly clamped and cut and was taken off the operative field by Dr. Dwyer for further assessment. Cord blood was collected. Three-vessel cord was intact. Placenta was delivered spontaneously thereafter. IV Pitocin was initiated to facilitate uterine contraction. Uterine fundus became firmer with bimanual massage. Uterus was exteriorized and cleared of all endometrial clots and debris. I then proceeded with closing the uterine incision in three separate layers, the first layer was 0 Vicryl suture in a running locked fashion, second layer of 0 Monocryl in imbricating fashion, third layer of Monocryl in imbricating fashion due to the thickness of the lower uterine segment. I then have to place a [id number] suture closer to the uterine fundus where the previous adhesions were taken down due to significant bleeding from this area of the uterus and the serosal surface; however, after I do this, hemostasis was noted. I placed the uterus back within the pelvis and copiously irrigated the pelvis using normal saline and once again, no active bleeding noted from any of my dissection planes. I then placed Surgicel down the midline of the uterus over this serosal scar tissue to prevent further bleeding. I placed Interceed over the low transverse incision to reduce risk of recurrent adhesions. I then proceeded with closing the peritoneum using 3-0 Vicryl suture in a running fashion. The rectus muscle reapproximated using 3-0 Vicryl suture in interrupted fashion. The fascia reapproximated using 0 Vicryl suture in running fashion. Subcutaneous tissues reapproximated using 3-0 plain in interrupted subcutaneous stitch and skin reapproximated using 4-0 Monocryl running subcuticular. Dermabond was applied to incision. Sterile dressings with adhesive white tape. The patient tolerated the procedure well and sent to recovery area in stable condition. Lap and sponge counts were correct at the end of the procedure. Instrument counts correct as well. Two grams of Ancef were given preoperatively for infection prophylaxis. Job ID: [id number] DocumentID: [id number] Dictated Date: 03/22/2018 08:45:[address] Date: 03/22/2018 13:43:49 Dictated By: DO JENNI GREENFIELD
[2018-03-22 14:05] VITALS: BP 102/71
[2018-03-22] MEDS: CATHETER FLUSH 10 ML SYR IV SCH ×2 (15:38→21:06)
[2018-03-22] MEDS ORDERED: ACHD5005 PO (17:45)
[2018-03-22] MEDS ORDERED: IBUP-844 PO (17:45)
[2018-03-22] MEDS ORDERED: DOCU100C37 PO (17:45)
--- NOTE | 2018-03-22 17:47 | Discharge Inst-Women's Service ---
Discharge Inst-Women's Serv Depart Medication/Instructions New, Converted or Re-Newed RX: RX on Chart Consults/Follow Up Additional Follow Up: Yes Orders/Referrals Dr. Lance in 7-[address] Dwyer in 6 weeks Activity Activity: Activity as Tolerated Driving Instructions: No Driving for 1 Week NO SMOKING: NO SMOKING Nothing Inside Vagina: No Douching, No [place], No Tampons Diet Discharge Diet: No Restrictions Symptoms to Report to : Bleeding Excessive, Pain Increased, Fever Over 101 Degrees F, Vaginal Bleeding Increase, Questions/Concerns For Any Problems or Questions: Contact Your Physician Skin/Wound Care Infection Signs and Symptoms: Increased Redness, Foul Odor of Wound, Increased Drainage, Skin Itchy or Has a Rash, Increased Swelling, Temperature Above 101 F Operative Area Clean and Dry: Keep Incision Clean/Dry Stitches/[place]/Dermabond: Dermabond, Care of Stitches Bathing Instructions: HERB Loo DO Mar 22, 2018 5:47 pm
[2018-03-22 17:55] VITALS: BP 117/70
[2018-03-22] MEDS: HYDROcodone/APAP 5 MG/325 MG (LORTAB) TAB PO PRN ×2 (18:01→23:52)
[2018-03-22] MEDS: DOCUSATE SODIUM 100 MG (COLACE) CAP PO SCH (21:32)
[2018-03-22 21:36] VITALS: BP 121/83
[2018-03-23] VITALS: BP 111/71
[2018-03-23] MEDS: KETOROLAC 30 MG/ML VIAL IVP SCH (03:31)
[2018-03-23 04:00] VITALS: BP 134/83
[2018-03-23 06:06] LABS: BASOPHILS % (AUTO) 0 % (0-10); EOSINOPHILS # (AUTO) 0.1 10^3/uL (0.0-0.3); EOSINOPHILS % (AUTO) 0 % (0-10); HEMATOCRIT 32 % (35-52); HEMOGLOBIN 10.9 G/DL (11.5-16.0); LYMPHOCYTES # (AUTO) 1.4 X 10^3 (1.0-4.0); LYMPHOCYTES % (AUTO) 10 % (12-44); MEAN CORPUSCULAR HEMOGLOBIN 29 PG (25-34); MEAN CORPUSCULAR HGB CONC 34 G/DL (32-36); MEAN CORPUSCULAR VOLUME 83 FL (80-99); MEAN PLATELET VOLUME 11.4 FL (7.4-10.4); MONOCYTES % (AUTO) 7 % (0-12); NEUTROPHILS # (AUTO) 11.9 X 10^3 (1.8-7.8); NEUTROPHILS % (AUTO) 83 % (42-75); PLATELET COUNT 214 10^3/uL (130-400); RED BLOOD COUNT 3.81 10^6/uL (4.35-5.85); RED CELL DISTRIBUTION WIDTH 14.1 % (10.0-14.5); WHITE BLOOD COUNT 14.4 10^3/uL (4.3-11.0)
[2018-03-23] MEDS: CATHETER FLUSH 10 ML SYR IV SCH ×2 (06:19→13:53)
[2018-03-23 08:00] VITALS: BP 127/83
[2018-03-23] MEDS: IBUPROFEN 600 MG (MOTRIN) TAB PO SCH ×3 (08:01→21:20)
[2018-03-23] MEDS: DOCUSATE SODIUM 100 MG (COLACE) CAP PO SCH ×2 (08:01→21:20)
--- NOTE | 2018-03-23 08:05 | Anesthesia-Regional Post-Op ---
Regional Patient Condition Mental Status: Alert, Oriented x3 Circulation: Same as Pre-Op Headache: Absent Sensation: Full Recovery Motor Block: Absent Post Op Complications Complications None Follow Up Care/Instructions Patient Instructions None needed. Anesthesia/Patient Condition Patient is doing well, no complaints, stable vital signs, no apparent adverse anesthesia problems. No complications reported per nursing. JOYCELYN CROWLEY CRNA Mar 23, 2018 08:05
--- NOTE | 2018-03-23 10:55 | Postpartum Progress Note ---
Note Note Day # 1 Subjective: Patient is without complaints. Ambulating, voiding. Tolerating a regular diet without nausea or vomiting. Normal lochia. Pain is well controlled with oral pain medications. Objective: Vital Sign - Last 24 Hours 03/22/18 03/22/18 03/22/18 03/22/18 11:22 14:05 17:55 21:36 Temp 97.7 96.5 98.0 Pulse 92 91 95 Resp 16 18 18 B/P (MAP) 102/71 (81) 117/70 (86) 121/83 (96) Pulse Ox 97 100 98 O2 Delivery Room Air Room Air Room Air Room Air 03/23/18 03/23/18 03/23/18 00:00 04:00 08:00 Temp 98.0 98.0 98.4 Pulse 95 97 106 Resp 18 18 18 B/P (MAP) 111/71 (84) 134/83 (100) 127/83 (98) Pulse Ox 98 98 98 O2 Delivery Room Air Room Air Room Air Intake and Output 03/22/18 03/22/18 03/23/18 15:00 23:00 07:00 Intake Total 1050 ml 360 ml 840 ml Output Total 700 ml 700 ml 1250 ml Balance 350 ml -340 ml -410 ml Physical Exam: General - Alert and oriented, no apparent distress Abdomen - Soft, appropriately tender to palpation, non-distended, fundus firm at umbilicus Extremities - no edema, negative Jose's bilaterally Incision- c/d/i Assessment: POD 1 RLTCS Acute blood loss anemia Plan: Routine care. Encourage breast feeding. Encourage ambulation. Ferrous sulfate supplementation. Plan for discharge tomorrow Vitals - Labs Vital Signs - I&O Vital Signs Date Time Temp Pulse Resp B/P (MAP) Pulse Ox O2 Delivery O2 Flow Rate FiO2 03/23/18 08:00 98.4 106 18 127/83 (98) 98 Room Air 03/23/18 04:00 98.0 97 18 134/83 (100) 98 Room Air 03/23/18 00:00 98.0 95 18 111/71 (84) 98 Room Air 03/22/18 21:36 98.0 95 18 121/83 (96) 98 Room Air 03/22/18 17:55 96.5 91 18 117/70 (86) 100 Room Air 03/22/18 14:05 97.7 92 16 102/71 (81) 97 Room Air 03/22/18 11:22 Room Air I & O 03/23/18 07:00 Intake Total 2250 ml Output Total 2650 ml Balance -400 ml Labs Laboratory Tests 03/23/18 05:22: White Blood Count 14.4H, Red Blood Count 3.81L, Hemoglobin 10.9L, Hematocrit 32L , Mean Corpuscular Volume 83, Mean Corpuscular Hemoglobin 29, Mean Corpuscular Hemoglobin Concent 34, Red Cell Distribution Width 14.1, Platelet Count 214, Mean Platelet Volume 11.4H, Neutrophils (%) (Auto) 83H, Lymphocytes (%) (Auto) 10L, Monocytes (%) (Auto) 7, Eosinophils (%) (Auto) 0, Basophils (%) (Auto) 0, Neutrophils # (Auto) 11.9H, Lymphocytes # (Auto) 1.4, Monocytes # (Auto) 1.0, Eosinophils # (Auto) 0.1, Basophils # (Auto) 0.0 HERB TRUONG DO Mar 23, 2018 10:55 am
[2018-03-23 12:00] VITALS: BP 110/75
[2018-03-23] MEDS: HYDROcodone/APAP 5 MG/325 MG (LORTAB) TAB PO PRN ×2 (12:31→17:50)
[2018-03-23 17:08] VITALS: BP 102/67
[2018-03-24 00:10] VITALS: BP 104/72
[2018-03-24] MEDS: IBUPROFEN 600 MG (MOTRIN) TAB PO SCH ×2 (01:42→09:18)
[2018-03-24 05:00] VITALS: BP 117/87
[2018-03-24] MEDS: HYDROcodone/APAP 5 MG/325 MG (LORTAB) TAB PO PRN ×2 (06:23→12:04)
[2018-03-24 08:00] VITALS: BP 105/70
--- NOTE | 2018-03-24 08:30 | Postpartum Progress Note ---
Note Note Day # 2 Subjective: Patient is without complaints. Ambulating, voiding. Tolerating a regular diet without nausea or vomiting. Normal lochia. Pain is well controlled with oral pain medications. Objective: Vital Sign - Last 24 Hours 03/23/18 03/23/18 03/24/18 03/24/18 12:00 17:08 00:10 05:00 Temp 98.2 97.8 97.1 97.8 Pulse 86 91 96 81 Resp 18 18 18 18 B/P (MAP) 110/75 (87) 102/67 (79) 104/72 (83) 117/87 (97) Pulse Ox 98 98 97 98 O2 Delivery Room Air Room Air Room Air Room Air 03/24/18 08:00 Temp 97.8 Pulse 90 Resp 20 B/P (MAP) 105/70 (82) Pulse Ox 96 O2 Delivery Room Air Intake and Output 03/23/18 03/23/18 03/24/18 15:00 23:00 07:00 Intake Total 960 ml 1000 ml Output Total 900 ml 1300 ml Balance 60 ml -300 ml Physical Exam: General - Alert and oriented, no apparent distress Abdomen - Soft, appropriately tender to palpation, non-distended, fundus firm at umbilicus Extremities - no edema, negative Jose's bilaterally Incision- c/d/i Assessment: POD 2 RLTCS Acute blood loss anemia Plan: Routine care. Encourage breast feeding. Encourage ambulation. Ferrous sulfate supplementation. Plan for discharge today Vitals - Labs Vital Signs - I&O Vital Signs Date Time Temp Pulse Resp B/P (MAP) Pulse Ox O2 Delivery O2 Flow Rate FiO2 03/24/18 08:00 97.8 90 20 105/70 (82) 96 Room Air 03/24/18 05:00 97.8 81 18 117/87 (97) 98 Room Air 03/24/18 00:10 97.1 96 18 104/72 (83) 97 Room Air 03/23/18 17:08 97.8 91 18 102/67 (79) 98 Room Air 03/23/18 12:00 98.2 86 18 110/75 (87) 98 Room Air I & O 03/24/18 07:00 Intake Total 1960 ml Output Total 2200 ml Balance -240 ml HERB TRUONG DO Mar 24, 2018 8:30 am
[2018-03-24] MEDS: DOCUSATE SODIUM 100 MG (COLACE) CAP PO SCH (09:18)
[2018-03-24 14:00] VITALS: BP 93/72
[2018-03-24 16:20] VITALS: BP 93/72
== END 2018-03-24 16:20 | disposition home or self-care (01) | DRG 765 ==
LOC: LDRP 06:05 → WS 09:32
PROVIDERS: ADMIT Obstetrics & Gynecology; ATTEND Obstetrics & Gynecology
PROC: 10D00Z1 Extraction of Products of Conception, Low, Open Approach (ICD-10-PCS; principal; 2018-03-22 07:21)
DX: O41.03X0 Oligohydramnios, third trimester, not applicable or unspecified (principal); O90.81 Anemia of the puerperium; D62 Acute posthemorrhagic anemia; O24.415 Gestational diabetes mellitus in pregnancy, controlled by oral hypoglycemic drugs; O34.211 Maternal care for low transverse scar from previous cesarean delivery; N73.6 Female pelvic peritoneal adhesions (postinfective); O34.13 Maternal care for benign tumor of corpus uteri, third trimester; D25.1 Intramural leiomyoma of uterus; D25.2 Subserosal leiomyoma of uterus; Z68.37 Body mass index [BMI] 37.0-37.9, adult; Z3A.37 37 weeks gestation of pregnancy; Z37.0 Single live birth
CPT/HCPCS: 36415; 80053; 82962; 85025; 86850; 86900; 86901; 87081; 88305; 88307; 94664

== ENCOUNTER 2018-07-20 21:30 | Emergency (ER) | payer SELFPAY ==
[~2018-07-20] VITALS: Ht 167.6 cm; Wt 103.4 kg
[~2018-07-20 21:30] MED LIST changes: +ACHD5005 PO; -CITRIC ACID/SOB CIT (BICITRA) 30 ML UDC ONE; +DOCU100C37 PO; +IBUP-844 PO; -LACTATED RINGERS 1,000 ML IV ONE; +METF-397 PO; -METF500T5 PO; -METOCLOPRAMIDE INJ 10 MG/2 ML (REGLAN) ONE; -raNItidine 50 MG/2 ML INJ (ZANTAC) ONE
[2018-07-20 21:53] LABS: BASOPHILS % (AUTO) 0 % (0-10); EOSINOPHILS # (AUTO) 0.2 10^3/uL (0.0-0.3); EOSINOPHILS % (AUTO) 2 % (0-10); HEMATOCRIT 39 % (35-52); HEMOGLOBIN 12.9 G/DL (11.5-16.0); LYMPHOCYTES # (AUTO) 3.1 X 10^3 (1.0-4.0); LYMPHOCYTES % (AUTO) 28 % (12-44); MEAN CORPUSCULAR HEMOGLOBIN 28 PG (25-34); MEAN CORPUSCULAR HGB CONC 33 G/DL (32-36); MEAN CORPUSCULAR VOLUME 85 FL (80-99); MEAN PLATELET VOLUME 10.7 FL (7.4-10.4); MONOCYTES # (AUTO) 0.8 X 10^3 (0.0-1.0); MONOCYTES % (AUTO) 7 % (0-12); NEUTROPHILS # (AUTO) 7.2 X 10^3 (1.8-7.8); NEUTROPHILS % (AUTO) 64 % (42-75); PLATELET COUNT 297 10^3/uL (130-400); RED BLOOD COUNT 4.56 10^6/uL (4.35-5.85); WHITE BLOOD COUNT 11.3 10^3/uL (4.3-11.0)
--- NOTE | 2018-07-20 21:53 | ED Abdominal Pain ---
General Chief Complaint: Abdominal/GI Problems Stated Complaint: LUMP ON R SIDE Source of Information: Patient Exam Limitations: No Limitations History of Present Illness Date Seen by Provider: Jul 20, 2018 Time Seen by Provider: 21:49 Initial Comments To ER with right sided lateral upper abdominal nodule very tender to palpation over the past few days. She's had this nodule present for about a month but only recently become painful. She's been gurgling on the Internet and believes that her liver is enlarged she is tearful on arrival to ER, very anxious. She recently delivered via 4 months ago. Denies any other lymph node swelling. No fevers. She has been generally fatigued. Denies any cat scratches that she is aware of, Timing/Duration: Intermittent Severity/Quality: Moderate Location: Generalized Abdomen Radiation: No Radiation Activities at Onset: None Allergies and Home Medications Allergies Coded Allergies: No Known Drug Allergies (Unverified , 03/20/18) Home Medications Docusate Sodium 100 Mg Capsule, 100 MG PO BID PRN for CONSTIPATION-1ST LINE Prescribed by: HERB TRUONG on 03/22/18 174 Hydrocodone Bit/Acetaminophen 1 Tab Tab, 1-2 TAB PO Q4H PRN for PAIN-MODERATE Prescribed by: HERB TRUONG on 03/22/18 174 Ibuprofen 600 Mg Tablet, 600 MG PO Q6H Prescribed by: HERB TRUONG on 03/22/18 174 Metformin HCl 500 Mg Tablet, 1,000 PO BID, (Reported) take 2 in am and 1 at night [id number]/Iron Fumarate/FA/Dss 1 Each Tablet, 1 EACH PO DAILY, (Reported) Patient Home Medication List Home Medication List Reviewed: Yes Review of Systems Review of Systems Constitutional: see HPI EENTM: No Symptoms Reported Respiratory: No Symptoms Reported Cardiovascular: No Symptoms Reported Gastrointestinal: See HPI, Abdominal Pain Musculoskeletal: no symptoms reported Skin: no symptoms reported Psychiatric/Neurological: No Symptoms Reported Past Ibgpjql-Ynzklg-Qgnjfi Hx Patient Social History Alcohol Use: Denies Use Recreational Drug Use: No Smoking Status: Former Smoker Type Used: Cigarettes Former Smoker, Quit: Aug 20, 2000 Recent Foreign Travel: No Contact w/Someone Who Travel: No Recent Hopitalizations: No Physical Abuse: No Sexual Abuse: No Mistreated: No Fear: No Immunizations Up To Date Tetanus Booster (TDap): Unknown Seasonal Allergies Seasonal Allergies: No Past Medical History Surgeries: Yes (LIPOMA FROM ABDX2, 2 ) Appendectomy, Section Respiratory: No Cardiac: No Neurological: No Reproductive Disorders: No Female Reproductive Disorders: Menstrual Problems Sexually Transmitted Disease: No HIV/AIDS: No Genitourinary: No Gastrointestinal: Yes Gastroesophageal Reflux Musculoskeletal: No Endocrine: Yes (GESTATIONAL DIABETES) HEENT: No Loss of Vision: Denies Hearing Impairment: Denies Cancer: No Psychosocial: Yes (HX OF ANXIETY) Anxiety, Depression Integumentary: No Blood Disorders: No Adverse Reaction/Blood Tranf: No (N/A) Physical Exam Vital Signs Vital Signs - First Documented 07/20/18 21:44 Temp 97.6 Pulse 91 Resp 20 B/P (MAP) 141/104 (116) Pulse Ox 99 Capillary Refill : Height/Weight/BMI Height: 5'6.50" Weight: 238lbs. 0.0oz. 107.099316ql; 37.8 BMI Method:Stated General Appearance: WD/WN, no apparent distress HEENT: PERRL/EOMI, normal ENT inspection Respiratory: no respiratory distress, no accessory muscle use Cardiovascular: regular rate, rhythm, no murmur Gastrointestinal: normal bowel sounds, soft, tenderness (right lower abdominal tenderness to palpation. ), other (tender mobile 1 cm nodule consistent with a lymph node to the lateral aspects of the chest wall on the right overlying about the 10th rib. no overlying erythema or ecchymosis. ) Extremities: normal range of motion, non-tender Neurologic/Psychiatric: alert, normal mood/affect, oriented x 3 Skin: normal color, warm/dry Progress/Results/Core Measures Results/Orders Lab Results Laboratory Tests Test 07/20/18 21:47 Range/Units White Blood Count 11.3 H 4.3-11.0 10^3/uL Red Blood Count 4.56 4.35-5.85 10^6/uL Hemoglobin 12.9 11.5-16.0 G/DL Hematocrit 39 35-52 % Mean Corpuscular Volume 85 80-99 FL Mean Corpuscular Hemoglobin 28 25-34 PG Mean Corpuscular Hemoglobin Concent 33 32-36 G/DL Red Cell Distribution Width 13.0 10.0-14.5 % Platelet Count 297 130-400 10^3/uL Mean Platelet Volume 10.7 H 7.4-10.4 FL Neutrophils (%) (Auto) 64 42-75 % Lymphocytes (%) (Auto) 28 12-44 % Monocytes (%) (Auto) 7 0-12 % Eosinophils (%) (Auto) 2 0-10 % Basophils (%) (Auto) 0 0-10 % Neutrophils # (Auto) 7.2 1.8-7.8 X 10^3 Lymphocytes # (Auto) 3.1 1.0-4.0 X 10^3 Monocytes # (Auto) 0.8 0.0-1.0 X 10^3 Eosinophils # (Auto) 0.2 0.0-0.3 10^3/uL Basophils # (Auto) 0.0 0.0-0.1 10^3/uL Sodium Level 133 L 135-145 MMOL/L Potassium Level 4.2 3.6-5.0 MMOL/L Chloride Level 100 98-107 MMOL/L Carbon Dioxide Level 20 L 21-32 MMOL/L Anion Gap 13 5-14 MMOL/L Blood Urea Nitrogen 14 7-18 MG/DL Creatinine 0.85 0.60-1.30 MG/DL Estimat Glomerular Filtration Rate > 60 BUN/Creatinine Ratio 16 Glucose Level 257 H 70-105 MG/DL Calcium Level 9.2 8.5-10.1 MG/DL Corrected Calcium 9.0 8.5-10.1 MG/DL Total Bilirubin 0.3 0.1-1.0 MG/DL Aspartate Amino Transf (AST/SGOT) 25 5-34 U/L Alanine Aminotransferase (ALT/SGPT) 36 0-55 U/L Alkaline Phosphatase 64 40-136 U/L Total Protein 7.0 6.4-8.2 GM/DL Albumin 4.2 3.2-4.5 GM/DL My Orders Orders - JAKE BRANCH APRN Cbc With Automated Diff (07/20/18 21:45) Comprehensive Metabolic Panel (07/20/18 21:45) Iv Heplock-Insert (Order) (07/20/18 21:45) Ct Abdomen/Pelvis W (07/20/18 21:45) Ketorolac Injection (Toradol Injection) (07/20/18 22:00) Iohexol Injection (Omnipaque 350 Mg/Ml 1 (07/20/18 22:45) Ns (Ivpb) (Sodium Chloride 0.9%) (07/20/18 22:45) Pharmacy Communication (Pharmacy Communi (07/20/18 22:41) Medications Given in ED Current Medications Medications Dose Ordered Sig/Batool Route Start Time Stop Time Status Last Admin Dose Admin Iohexol 100 ml ONCE ONCE IV 07/20/18 22:45 07/20/18 22:46 07/20/18 22:43 100 ML Ketorolac Tromethamine 30 mg ONCE ONCE IVP 07/20/18 22:00 07/20/18 22:01 DC 07/20/18 22:00 30 MG Sodium Chloride 250 ml ONCE ONCE IV 07/20/18 22:45 07/20/18 22:46 07/20/18 22:43 80 ML Vital Signs/I&O 07/20/18 21:44 Temp 97.6 Pulse 91 Resp 20 B/P (MAP) 141/104 (116) Pulse Ox 99 Departure Impression Primary Impression: Lymphadenopathy Additional Impression: Anxiety Disposition: 01 HOME, SELF-CARE Condition: Stable Departure-Patient Inst. Decision time for Depature: 21:52 Referrals: WILBERT PEARSON MD (PCP/Family) Primary Care Physician Patient Instructions: LYMPH NODE SWELLING Add. Discharge Instructions: 1. Return to ER for any concerns Images Torso/Trunk 1 - Copy Copies To 1: WILBERT PEARSON MD, PETER J APRN Jul 20, 2018 21:53
[2018-07-20] MEDS ORDERED: KETOROLAC 30 MG/ML VIAL IVP ONE (22:00)
[2018-07-20 22:09] LABS: ALANINE AMINOTRANSFERASE 36 U/L (0-55); ALBUMIN 4.2 GM/DL (3.2-4.5); ALKALINE PHOSPHATASE 64 U/L (40-136); BILIRUBIN,TOTAL 0.3 MG/DL (0.1-1.0); BUN/CREATININE RATIO 16; CALCIUM 9.2 MG/DL (8.5-10.1); CARBON DIOXIDE 20 MMOL/L (21-32); CHLORIDE 100 MMOL/L (98-107); CREATININE SERUM 0.85 MG/DL (0.60-1.30); GFR ESTIMATED > 60; GLUCOSE 257 MG/DL (70-105); POTASSIUM 4.2 MMOL/L (3.6-5.0); SODIUM 133 MMOL/L (135-145)
[2018-07-20] MEDS ORDERED: IOHEXOL 350 MG/ML 100 ML (OMNIPAQUE 350) VIAL IV ONE (22:45)
[2018-07-20] MEDS ORDERED: NS 250 ML (IVPB) BAG IV ONE (22:45)
[2018-07-20 23:38] VITALS: BP 141/104
--- NOTE | 2018-07-21 06:31 | Diagnostic Imaging Report ---
PROCEDURE: CT abdomen and pelvis with contrast. TECHNIQUE: Multiple contiguous axial images were obtained through the abdomen and pelvis after administration of intravenous contrast. INDICATION: Palpable lump in the right upper abdomen/rib cage for one month. COMPARISON: 05/05/2014 FINDINGS: The lung bases are clear. The heart is normal in size. There is no pericardial effusion. There is hepatic steatosis with hepatomegaly. No focal liver lesions are seen. The spleen is unremarkable. The pancreas appears normal. A small splenule is seen. The bilateral adrenal glands appear normal. The right kidney demonstrates a small hyperdensity which may represent early excretion of contrast. There is no hydronephrosis or obstructing renal calculi. The bowel loops are nondistended without evidence of obstruction. The appendix is not seen. No free fluid or free air is seen. There are mild degenerative changes in the lumbar spine. There is a focal area of mild fat stranding in the subcutaneous fat of the right anterior abdomen which appears to represent scarring. No discrete mass or fluid collection is identified. No herniation through the anterior abdominal wall is seen. Overall this appears decreased when compared to 2013. IMPRESSION: 1. Focal area of mild fat stranding, possibly scarring in the subcutaneous right anterior abdomen. No masses or fluid collections are seen. 2. Hepatomegaly with hepatic steatosis. Dictated by: Dictated on workstation # [id number]
== END 2018-07-20 23:40 | disposition home or self-care (01) ==
LOC: EDUNIT# 21:30 → ER 21:32
DX: R59.0 Localized enlarged lymph nodes (principal); F41.9 Anxiety disorder, unspecified; K21.9 Gastro-esophageal reflux disease without esophagitis; F32.9 Major depressive disorder, single episode, unspecified; Z79.84 Long term (current) use of oral hypoglycemic drugs; Z98.890 Other specified postprocedural states; Z87.891 Personal history of nicotine dependence; Z90.89 Acquired absence of other organs
CPT/HCPCS: 36415; 74177; 80053; 85025; 96374

== ENCOUNTER 2019-12-27 23:39 | Emergency (ER) | payer MEDICAID ==
[~2019-12-27] VITALS: Ht 165.1 cm; Wt 95.2 kg
[2019-12-27] MEDS ORDERED: ASPIRIN 81 MG CHEW (CHILDREN'S ASA) ONE (23:57)
[2019-12-28] MEDS ORDERED: FAMOTIDINE 20 MG (PEPCID) TABLET PO STA (00:09)
[2019-12-28] MEDS ORDERED: ANTACID SUSP 30 ML UDC (MYLANTA) PO ONE (00:15)
[2019-12-28] MEDS ORDERED: LIDOCAINE 2% VISCOUS 15 ML UDC PO ONE (00:15)
[2019-12-28] MEDS ORDERED: ASPIRIN 81 MG CHEW (CHILDREN'S ASA) PO ONE (00:15)
[2019-12-28 00:21] LABS: BASOPHILS % (AUTO) 0 % (0-10); EOSINOPHILS # (AUTO) 0.1 10^3/uL (0.0-0.3); EOSINOPHILS % (AUTO) 1 % (0-10); HEMATOCRIT 39 % (35-52); HEMOGLOBIN 13.1 G/DL (11.5-16.0); LYMPHOCYTES # (AUTO) 4.9 X 10^3 (1.0-4.0); LYMPHOCYTES % (AUTO) 32 % (12-44); MEAN CORPUSCULAR HEMOGLOBIN 29 PG (25-34); MEAN CORPUSCULAR HGB CONC 33 G/DL (32-36); MEAN CORPUSCULAR VOLUME 85 FL (80-99); MONOCYTES # (AUTO) 1.1 X 10^3 (0.0-1.0); MONOCYTES % (AUTO) 7 % (0-12); NEUTROPHILS # (AUTO) 9.2 X 10^3 (1.8-7.8); NEUTROPHILS % (AUTO) 60 % (42-75); PLATELET COUNT 357 10^3/uL (130-400); RED CELL DISTRIBUTION WIDTH 12.8 % (10.0-14.5); WHITE BLOOD COUNT 15.3 10^3/uL (4.3-11.0)
--- NOTE | 2019-12-28 00:21 | ED Chest Pain ---
General Chief Complaint: Chest Pain Stated Complaint: SEVERE CP Source: patient Exam Limitations: no limitations History of Present Illness Date Seen by Provider: Dec 28, 2019 Time Seen by Provider: 00:01 Initial Comments The patient present ER by private conveyance from home with chief complaint that over the past 24 hours is been having some grossly worsening chest pain/pressure/discomfort from her anterior chest radiating to her back. She says it is worse when there is direct palpation to her chest or when she lies down flat. She denies a history of acid reflux. She has not taken anything for it. She's having no fevers coughs chills or shortness of breath. Deep inspirations do not make the pain worse. She has no known history of heart disease but she does have high cholesterol and diabetes. She does not know her father's history but her mom has no significant cardiac history. She has no history of familial or personal blood clots. No recent surgeries or periods of immobility or travel. She is not having any nausea with her discomfort. She has no history of asthma or COPD. She quit smoking almost 20 years ago. No history of high blood pressure or familial early onset coronary disease. She rates the pain as 3 out of 10, dull. Allergies and Home Medications Allergies Coded Allergies: No Known Drug Allergies (Unverified , 03/20/18) Home Medications Docusate Sodium 100 Mg Capsule, 100 MG PO BID PRN for CONSTIPATION-1ST LINE Prescribed by: HERB TRUONG on 03/22/181744 Hydrocodone Bit/Acetaminophen 1 Tab Tab, 1-2 TAB PO Q4H PRN for PAIN-MODERATE Prescribed by: HERB TRUONG on 03/22/181744 Ibuprofen 600 Mg Tablet, 600 MG PO Q6H Prescribed by: HERB TRUONG on 03/22/181744 Metformin HCl 500 Mg Tablet, 1,000 PO BID, (Reported) take 2 in am and 1 at night [id number]/Iron Fumarate/FA/Dss 1 Each Tablet, 1 EACH PO DAILY, (Reported) Patient Home Medication List Home Medication List Reviewed: Yes Review of Systems Review of Systems Constitutional: No chills, No diaphoresis EENTM: No Blurred Vision, No Double Vision Respiratory: Denies Cough, Denies Shortness of Air Cardiovascular: See HPI, Chest Pain; Denies Edema, Denies Lightheadedness Gastrointestinal: Denies Abdomen Distended, Denies Abdominal Pain, Denies Constipated, Denies Diarrhea, Denies Nausea, Denies Vomiting Genitourinary: Denies Burning, Denies Discharge Musculoskeletal: No back pain, No joint pain Skin: No change in color, No pruritus All Other Systems Reviewed Negative Unless Noted: Yes Past Kjvcjbr-Ajtfbu-Duqvcw Hx Patient Social History Alcohol Use: Denies Use Recreational Drug Use: No Smoking Status: Former Smoker Type Used: Cigarettes Former Smoker, Quit: Aug 20, 2000 Recent Foreign Travel: No Contact w/Someone Who Travel: No Recent Hopitalizations: No Immunizations Up To Date Tetanus Booster (TDap): Unknown Seasonal Allergies Seasonal Allergies: No Past Medical History Surgeries: Yes (LIPOMA FROM ABDX2, 2 ) Appendectomy, Section Respiratory: No Cardiac: No Neurological: No Reproductive Disorders: No Female Reproductive Disorders: Menstrual Problems Sexually Transmitted Disease: No HIV/AIDS: No Genitourinary: No Gastrointestinal: Yes Gastroesophageal Reflux Musculoskeletal: No Endocrine: Yes (GESTATIONAL DIABETES) HEENT: No Loss of Vision: Denies Hearing Impairment: Denies Cancer: No Psychosocial: Yes (HX OF ANXIETY) Anxiety, Depression Integumentary: No Blood Disorders: No Adverse Reaction/Blood Tranf: No (N/A) Physical Exam Vital Signs Vital Signs - First Documented 12/27/19 23:45 Temp 36.9 Pulse 85 Resp 20 B/P (MAP) 132/69 (90) Pulse Ox 98 O2 Delivery Room Air Capillary Refill : Height, Weight, BMI Height: 5'6.00" Weight: 228lbs. 0.0oz. 103.934394tx; 37.8 BMI Method:Stated General Appearance: WD/WN, Anxious HEENT: PERRL/EOMI, Normal ENT Inspection, Pharynx Normal, Moist Mucous Membranes Neck: Full Range of Motion, Normal Inspection Respiratory: No Chest Non Tender; Lungs Clear, Normal Breath Sounds, No Accessory Muscle Use, No Respiratory Distress Cardiovascular: Regular Rate, Rhythm, No Edema, Normal Peripheral Pulses Gastrointestinal: Normal Bowel Sounds, Non Tender, Soft, Other (negative for Richardson sign, Rovsing sign or McBurney's point tenderness or rebound tenderness.) Extremity: Normal Capillary Refill, Normal Inspection, No Calf Tenderness, No Pedal Edema Neurologic/Psychiatric: Alert, Oriented x3, Other (anxious, sometimes tearful affect) Skin: Normal Color, Warm/Dry Progress/Results/Core Measures Results/Orders Lab Results Laboratory Tests Test 12/27/19 23:57 12/28/19 00:25 12/28/19 00:58 Range/Units White Blood Count 15.3 H 4.3-11.0 10^3/uL Red Blood Count 4.59 4.35-5.85 10^6/uL Hemoglobin 13.1 11.5-16.0 G/DL Hematocrit 39 35-52 % Mean Corpuscular Volume 85 80-99 FL Mean Corpuscular Hemoglobin 29 25-34 PG Mean Corpuscular Hemoglobin Concent 33 32-36 G/DL Red Cell Distribution Width 12.8 10.0-14.5 % Platelet Count 357 130-400 10^3/uL Mean Platelet Volume 11.0 H 7.4-10.4 FL Neutrophils (%) (Auto) 60 42-75 % Lymphocytes (%) (Auto) 32 12-44 % Monocytes (%) (Auto) 7 0-12 % Eosinophils (%) (Auto) 1 0-10 % Basophils (%) (Auto) 0 0-10 % Neutrophils # (Auto) 9.2 H 1.8-7.8 X 10^3 Lymphocytes # (Auto) 4.9 H 1.0-4.0 X 10^3 Monocytes # (Auto) 1.1 H 0.0-1.0 X 10^3 Eosinophils # (Auto) 0.1 0.0-0.3 10^3/uL Basophils # (Auto) 0.0 0.0-0.1 10^3/uL Neutrophils % (Manual) 62 % Lymphocytes % (Manual) 32 % Monocytes % (Manual) 5 % Eosinophils % (Manual) 1 % Blood Morphology Comment NORMAL Prothrombin Time 13.5 12.2-14.7 SEC INR Comment 1.0 0.8-1.4 Activated Partial Thromboplast Time 36 H 24-35 SEC D-Dimer 0.96 H 0.00-0.49 UG/ML Sodium Level 138 135-145 MMOL/L Potassium Level 4.2 3.6-5.0 MMOL/L Chloride Level 105 98-107 MMOL/L Carbon Dioxide Level 19 L 21-32 MMOL/L Anion Gap 14 5-14 MMOL/L Blood Urea Nitrogen 14 7-18 MG/DL Creatinine 0.86 0.60-1.30 MG/DL Estimat Glomerular Filtration Rate > 60 BUN/Creatinine Ratio 16 Glucose Level 105 70-105 MG/DL Calcium Level 9.2 8.5-10.1 MG/DL Corrected Calcium 9.0 8.5-10.1 MG/DL Magnesium Level 1.9 1.6-2.4 MG/DL Total Bilirubin 0.4 0.1-1.0 MG/DL Aspartate Amino Transf (AST/SGOT) 17 5-34 U/L Alanine Aminotransferase (ALT/SGPT) 18 0-55 U/L Alkaline Phosphatase 47 40-136 U/L Myoglobin 44.9 10.0-92.0 NG/ML Troponin I < 0.028 <0.028 NG/ML Total Protein 7.7 6.4-8.2 GM/DL Albumin 4.3 3.2-4.5 GM/DL Lipase 47 8-78 U/L Urine Opiates Screen NEGATIVE NEGATIVE Urine Oxycodone Screen NEGATIVE NEGATIVE Urine Methadone Screen NEGATIVE NEGATIVE Urine Propoxyphene Screen NEGATIVE NEGATIVE Urine Barbiturates Screen NEGATIVE NEGATIVE Ur Tricyclic Antidepressants Screen NEGATIVE NEGATIVE Urine Phencyclidine Screen NEGATIVE NEGATIVE Urine Amphetamines Screen POSITIVE H NEGATIVE Urine Methamphetamines Screen NEGATIVE NEGATIVE Urine Benzodiazepines Screen NEGATIVE NEGATIVE Urine Cocaine Screen NEGATIVE NEGATIVE Urine Cannabinoids Screen POSITIVE H NEGATIVE Group A Streptococcus Screen NEGATIVE NEGATIVE My Orders Orders - ELE,ANGELICA J Ekg Tracing (12/27/19 23:53) Continuous Ekg Monitoring (12/27/19 23:53) Aspirin Chewable Tablet (Baby Aspirin Ch (12/27/19 23:57) Cbc With Automated Diff (12/28/19 00:09) Magnesium (12/28/19 00:09) Chest 1 View, Ap/Pa Only (12/28/19 00:09) Comprehensive Metabolic Panel (12/28/19 00:09) Myoglobin Serum (12/28/19 00:09) Protime With Inr (12/28/19 00:09) Partial Thromboplastin Time (12/28/19 00:09) O2 (12/28/19 00:09) Lipid Panel (12/29/19 06:00) Ed Iv/Invasive Line Start (12/28/19 00:09) Lipase (12/28/19 00:09) Troponin I (12/28/19 00:09) Aspirin Chewable Tablet (Baby Aspirin Ch (12/28/19 00:15) Lidocaine 2% Viscous 15 Ml (Xylocaine Vi (12/28/19 00:15) Famotidine Tablet (Pepcid Tablet) (12/28/19 00:09) Antacid Suspension (Mylanta Suspension (12/28/19 00:15) Urine Bedside (12/28/19 00:13) Drug Screen Stat (Urine) (12/28/19 00:13) Fibrin Degradation Products (12/27/19 23:57) Manual Differential (12/27/19 23:57) Ketorolac Injection (Toradol Injection) (12/28/19 01:00) Rapid Strep A Screen (12/28/19 01:28) Medications Given in ED Current Medications Medications Dose Ordered Sig/Batool Route Start Time Stop Time Status Last Admin Dose Admin Al Hydrox/Mg Hydrox/Simethicone 30 ml ONCE ONCE PO 12/28/19 00:15 12/28/19 00:16 DC 12/28/19 00:25 30 ML Aspirin 81 mg STK-MED ONCE .ROUTE 12/27/19 23:57 12/28/19 00:04 DC 12/28/19 00:06 324 MG Ketorolac Tromethamine 30 mg ONCE ONCE IVP 12/28/19 01:00 12/28/19 01:01 DC 12/28/19 01:03 30 MG Lidocaine HCl 15 ml ONCE ONCE PO 12/28/19 00:15 12/28/19 00:16 DC 12/28/19 00:25 15 ML Vital Signs/I&O 12/27/19 12/27/19 23:45 23:45 Temp 36.9 Pulse 85 Resp 20 B/P (MAP) 132/69 (90) Pulse Ox 98 O2 Delivery Room Air Progress Progress Note #1: Time: 00:19 Progress Note We did offer the patient something for her anxiety and she declined at this time. We have discussed appropriate workup to include aspirin, GI cocktail, chest x-ray EKG. Possibilities include costochondritis since its reproducible, less likely pleurisy, myocarditis/pericarditis. Says the pains been going on all day a troponin should be sufficient to rule out significant coronary disease given her lack of symptoms. If the GI cocktail does not help her pain and we may try Toradol. Wells' score for pulmonary embolism: 0.0 points; Low risk group: 1.3% chance of PE in an ED population. PERC 0 criteria; No need for further workup, as <2% chance of PE. Progress Note #2: Time: 00:55 Progress Note GI cocktail made little difference. The patient's pain is still reproducible to direct palpation. She has an upper respiratory symptoms. Suspect she is having body aches and costochondritis. We are going to give her some Toradol and a rapid strep. Progress Note #3: Time: 01:54 Progress Note Rapid strep is negative, viral pharyngitis is most likely source of her symptoms and labs as well as her costochondritis. Toradol took her pain down to 0. Initial ECG Impression Date: Dec 27, 2019 Initial ECG Impression Time: 23:58 Initial ECG Rate: 80 Initial ECG Rhythm: Normal Sinus Initial ECG Intervals: Normal Initial ECG Impression: Normal, Nonspecific Changes Comment Normal sinus rhythm without clinically relevant ST elevation or depression. Diagnostic Imaging Diagonstic Imaging: Xray Plain Films/CT/US/NM/MRI: chest (one view) Comments No acute cardiopulmonary process noted on one view chest x-ray. Reviewed: Reviewed by Me Departure Impression Primary Impression: Costochondritis, acute Additional Impression: Acute viral pharyngitis Disposition: HOME, SELF-CARE Condition: Stable Departure-Patient Inst. Decision time for Depature: 01:54 Referrals: [facility] (PCP/Family) Primary Care Physician Patient Instructions: Chest Pain That Is Not Caused by the Heart (DC), Costochondritis Add. Discharge Instructions: I suspect your pain is related to costochondritis which is caused by irritation of the joints of your ribs and chest wall. Tylenol 1000 mg every 8 hours as needed for pain in addition to naproxen 1-2 capsules twice a day can be very useful for the pain you're expressing any chest wall. It should resolve usually in 1-2 weeks on its own. Drink plenty of fluids and use vapor rubs such as Vicks or Mentholatum liberally. All discharge instructions reviewed with patient and/or family. Voiced understanding. ANGELICA MARLOW Dec 28, 2019 00:21
[2019-12-28 00:31] LABS: FIBRIN DEGRADATION PRODUCTS 0.96 UG/ML (0.00-0.49); PROTHROMBIN TIME PATIENT 13.5 SEC (12.2-14.7)
[2019-12-28 00:35] LABS: EOSINOPHILS % (MANUAL) 1 %; LYMPHOCYTES % (MANUAL) 32 %; MONOCYTES % (MANUAL) 5 %; NEUTROPHILS % (MANUAL) 62 %; RBC MORPH NORMAL
[2019-12-28 00:36] LABS: BUN/CREATININE RATIO 16; CALCIUM 9.2 MG/DL (8.5-10.1); CARBON DIOXIDE 19 MMOL/L (21-32); CHLORIDE 105 MMOL/L (98-107); CREATININE SERUM 0.86 MG/DL (0.60-1.30); GFR ESTIMATED > 60; GLUCOSE 105 MG/DL (70-105); MAGNESIUM 1.9 MG/DL (1.6-2.4); POTASSIUM 4.2 MMOL/L (3.6-5.0); SODIUM 138 MMOL/L (135-145)
[2019-12-28 00:37] LABS: ALANINE AMINOTRANSFERASE 18 U/L (0-55); ALBUMIN 4.3 GM/DL (3.2-4.5); ALKALINE PHOSPHATASE 47 U/L (40-136); BILIRUBIN,TOTAL 0.4 MG/DL (0.1-1.0); LIPASE 47 U/L (8-78); TOTAL PROTEIN 7.7 GM/DL (6.4-8.2)
[2019-12-28 00:42] LABS: AMPHETAMINE SCREEN, URINE POSITIVE (NEGATIVE); BARBITURATE SCREEN URINE NEGATIVE (NEGATIVE); BENZODIAZEPINES SCREEN URINE NEGATIVE (NEGATIVE); CANNABINOID SCREEN, URINE POSITIVE (NEGATIVE); COCAINE SCREEN URINE NEGATIVE (NEGATIVE); METHADONE STAT NEGATIVE (NEGATIVE); METHAMPHETAMINE SCREEN URINE S NEGATIVE (NEGATIVE); OPIATE SCREEN URINE NEGATIVE (NEGATIVE); OXYCODONE STAT NEGATIVE (NEGATIVE); PROPOXYPHENE STAT NEGATIVE (NEGATIVE); TRICYCLIC ANTIDEPRESSANTS SCRE NEGATIVE (NEGATIVE)
[2019-12-28] MEDS ORDERED: KETOROLAC 30 MG/ML VIAL IVP ONE (01:00)
[2019-12-28 01:55] VITALS: BP 111/80
--- NOTE | 2019-12-28 07:27 | Diagnostic Imaging Report ---
INDICATION: Chest pain COMPARISON: 12/28/2008 FINDINGS: Single frontal view of the chest demonstrates normal heart size and pulmonary vascularity. The lungs are well aerated and clear. No large pleural effusion or pneumothorax is seen. The visualized osseous structures show no acute abnormalities. IMPRESSION: 1. No acute cardiopulmonary process. Dictated by: Dictated on workstation # [id number]
== END 2019-12-28 02:04 | disposition home or self-care (01) ==
LOC: EDUNIT# 23:39 → ER 23:41
DX: M94.0 Chondrocostal junction syndrome [Tietze] (principal); J02.9 Acute pharyngitis, unspecified; Z87.891 Personal history of nicotine dependence; K21.9 Gastro-esophageal reflux disease without esophagitis; F41.9 Anxiety disorder, unspecified; F32.9 Major depressive disorder, single episode, unspecified
CPT/HCPCS: 36415; 71045; 80053; 80306; 83690; 83735; 83874; 84484; 84703; 85007; 85027; 85379; 85610; 85730; 87430; 93005

== ENCOUNTER 2021-01-18 18:12 | Emergency (ER) | payer MEDICAID ==
[~2021-01-18] VITALS: Ht 167.7 cm; Wt 95.4 kg
[2021-01-18 18:15] VITALS: BP 150/116
[2021-01-18 18:54] LABS: BASOPHILS # (AUTO) 0.1 10^3/uL (0.0-0.1); BASOPHILS % (AUTO) 0 % (0-10); EOSINOPHILS # (AUTO) 0.1 10^3/uL (0.0-0.3); EOSINOPHILS % (AUTO) 1 % (0-10); HEMATOCRIT 43 % (35-52); HEMOGLOBIN 13.9 g/dL (11.5-16.0); LYMPHOCYTES # (AUTO) 3.4 10^3/uL (1.0-4.0); LYMPHOCYTES % (AUTO) 25 % (12-44); MEAN CORPUSCULAR HEMOGLOBIN 28 pg (25-34); MEAN CORPUSCULAR HGB CONC 33 g/dL (32-36); MEAN CORPUSCULAR VOLUME 87 fL (80-99); MEAN PLATELET VOLUME 10.7 fL (9.0-12.2); MONOCYTES % (AUTO) 8 % (0-12); NEUTROPHILS # (AUTO) 8.9 10^3/uL (1.8-7.8); NEUTROPHILS % (AUTO) 66 % (42-75); PLATELET COUNT 383 10^3/uL (130-400); WHITE BLOOD COUNT 13.4 10^3/uL (4.3-11.0)
[2021-01-18 19:00] LABS: ALANINE AMINOTRANSFERASE 22 U/L (0-55); ALBUMIN 4.7 GM/DL (3.2-4.5); ALKALINE PHOSPHATASE 55 U/L (40-136); BILIRUBIN,TOTAL 0.5 MG/DL (0.1-1.0); BUN/CREATININE RATIO 16; CALCIUM 10.1 MG/DL (8.5-10.1); CARBON DIOXIDE 27 MMOL/L (21-32); CHLORIDE 97 MMOL/L (98-107); CREATININE SERUM 0.82 MG/DL (0.60-1.30); GFR ESTIMATED > 60; GLUCOSE 109 MG/DL (70-105); MAGNESIUM 1.7 MG/DL (1.6-2.4); POTASSIUM 3.9 MMOL/L (3.6-5.0); SODIUM 135 MMOL/L (135-145); TOTAL PROTEIN 8.5 GM/DL (6.4-8.2)
--- NOTE | 2021-01-18 19:05 | ED Neurological Problem ---
General Chief Complaint: Neurological Problems Stated Complaint: L ARM NUMBNESS/LETHARGIC Nursing Triage Note: AMB TO ROOM WITHOUT PROBLEM REPORTS ABUT 1630 DRANK COFFEE WITH A SHOOT OF ESPRESSO AFTER HEART FELT LIKE IT WAS RACING,SHAKEY PRESSURE IN BACK OF NECK AND BOTH ARMS FELT WEAK. ON ADMIT FEEING ANXIOUS Nursing Sepsis Screen: No Definite Risk Source: patient Exam Limitations: no limitations History of Present Illness Date Seen by Provider: Jan 18, 2021 Time Seen by Provider: 18:15 Initial Comments This 40-year-old woman presents to the emergency room with a constellation of symptoms that include shakiness, lightheadedness, palpitations, shortness of air, cloudy mentation, confusing left and right, generalized weakness, and a pressure-like sensation in the back of her neck and into her left arm. She did not describe any focal weakness. Symptoms are now improving. She denies any pain. Symptoms started after drinking a strong espresso drink at about 16:30. She also reports drinking coffee this morning and not eating well today. She is diabetic and does not monitor her blood sugars because she lost her glucometer. She denies ever having symptoms like this in the past. She seems rather anxious at this time. She initially denied any drug or alcohol use. However, it was noted that there was marijuana in the urine drug screen about a year ago. I inquired again about marijuana use and she admits to using marijuana within the past week. She also tried a vape of an unknown product offered to her by someone at work yesterday. She presumed that her symptoms were due to caffeine overdose. She induced vomiting to try to expel the excess caffeine. She ate and drink much water after the episode to try to help her flush out the caffeine. At this time she primarily just feels anxious and weak. She has been taking a couple of supplements recently including one called [employer] by [employer]. It has numerous herbs and other additives. This product claims to boost acetylcholine levels. Allergies and Home Medications Allergies Coded Allergies: No Known Drug Allergies (Unverified , 03/20/18) Home Medications Docusate Sodium 100 Mg Capsule, 100 MG PO BID PRN for CONSTIPATION-1ST LINE Prescribed by: HERB TRUONG on 03/22/18 1745 Hydrocodone Bit/Acetaminophen 1 Tab Tab, 1-2 TAB PO Q4H PRN for PAIN-MODERATE Prescribed by: HERB TRUONG on 03/22/181744 Ibuprofen 600 Mg Tablet, 600 MG PO Q6H Prescribed by: HERB TRUONG on 03/22/181744 Metformin HCl 500 Mg Tablet, 1,000 PO BID, (Reported) take 2 in am and 1 at night [id number]/Iron Fumarate/FA/Dss 1 Each Tablet, 1 EACH PO DAILY, (Reported) Patient Home Medication List Home Medication List Reviewed: Yes Review of Systems Review of Systems Constitutional: see HPI Eyes: No Symptoms Reported Ears, Nose, Mouth, Throat: no symptoms reported Respiratory: see HPI Cardiovascular: see HPI Gastrointestinal: see HPI Genitourinary: no symptoms reported : No LMP: Dec 06, 2020 Musculoskeletal: see HPI Skin: no symptoms reported Psychiatric/Neurological: See HPI Endocrine: See HPI Hematologic/Lymphatic: No Symptoms Reported Past Fkylufl-Odcvbb-Abrriu Hx Past Med/Social Hx: Reviewed and Corrections made Patient Social History Alcohol Use: Occasionally Uses Drug of Choice: Marijuana Smoking Status: Former Smoker Type Used: Cigarettes Former Smoker, Quit: Aug 20, 2000 Recent Infectious Disease Expo: No Recent Hopitalizations: No Immunizations Up To Date Tetanus Booster (TDap): Unknown Seasonal Allergies Seasonal Allergies: No Past Medical History Surgeries: Yes (LIPOMA FROM ABDX2, 2 ) Appendectomy, Section Respiratory: No Cardiac: No Neurological: No Reproductive Disorders: Yes Female Reproductive Disorders: Menstrual Problems Sexually Transmitted Disease: No HIV/AIDS: No Genitourinary: No Gastrointestinal: Yes Gastroesophageal Reflux Musculoskeletal: No Endocrine: Yes (GESTATIONAL DIABETES) Diabetes, Non-Insulin dep HEENT: No Loss of Vision: Denies Hearing Impairment: Denies Cancer: No Psychosocial: Yes (HX OF ANXIETY) Anxiety, Depression Integumentary: No Blood Disorders: No Adverse Reaction/Blood Tranf: No (N/A) Physical Exam Vital Signs Vital Signs - First Documented 01/18/21 18:15 Temp 36.5 Pulse 91 Resp 18 B/P (MAP) 150/116 (127) Pulse Ox 100 O2 Delivery Room Air Capillary Refill : Less Than 3 Seconds Height, Weight, BMI Height: 5'6.00" Weight: 228lbs. 0.0oz. 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, no motor/sensory deficits, alert, normal mood/affect, oriented x 3 Crainal Nerves: normal hearing, normal speech, PERRL Coordination/Gait: normal finger to nose (Normal gghf-dk-joft), normal gait Motor/Sensory: no motor deficit, no sensory deficit Skin: normal color, warm/dry Progress/Results/Core Measures Results/Orders Lab Results Laboratory Tests Test 01/18/21 18:30 Range/Units White Blood Count 13.4 H 4.3-11.0 10^3/uL Red Blood Count 4.90 3.80-5.11 10^6/uL Hemoglobin 13.9 11.5-16.0 g/dL Hematocrit 43 35-52 % Mean Corpuscular Volume 87 80-99 fL Mean Corpuscular Hemoglobin 28 25-34 pg Mean Corpuscular Hemoglobin Concent 33 32-36 g/dL Red Cell Distribution Width 12.2 10.0-14.5 % Platelet Count 383 130-400 10^3/uL Mean Platelet Volume 10.7 9.0-12.2 fL Immature Granulocyte % (Auto) 0 % Neutrophils (%) (Auto) 66 42-75 % Lymphocytes (%) (Auto) 25 12-44 % Monocytes (%) (Auto) 8 0-12 % Eosinophils (%) (Auto) 1 0-10 % Basophils (%) (Auto) 0 0-10 % Neutrophils # (Auto) 8.9 H 1.8-7.8 10^3/uL Lymphocytes # (Auto) 3.4 1.0-4.0 10^3/uL Monocytes # (Auto) 1.0 0.0-1.0 10^3/uL Eosinophils # (Auto) 0.1 0.0-0.3 10^3/uL Basophils # (Auto) 0.1 0.0-0.1 10^3/uL Immature Granulocyte # (Auto) 0.0 0.0-0.1 10^3/uL Sodium Level 135 135-145 MMOL/L Potassium Level 3.9 3.6-5.0 MMOL/L Chloride Level 97 L 98-107 MMOL/L Carbon Dioxide Level 27 21-32 MMOL/L Anion Gap 11 5-14 MMOL/L Blood Urea Nitrogen 13 7-18 MG/DL Creatinine 0.82 0.60-1.30 MG/DL Estimat Glomerular Filtration Rate > 60 BUN/Creatinine Ratio 16 Glucose Level 109 H 70-105 MG/DL Calcium Level 10.1 8.5-10.1 MG/DL Corrected Calcium 8.5-10.1 MG/DL Magnesium Level 1.7 1.6-2.4 MG/DL Total Bilirubin 0.5 0.1-1.0 MG/DL Aspartate Amino Transf (AST/SGOT) 20 5-34 U/L Alanine Aminotransferase (ALT/SGPT) 22 0-55 U/L Alkaline Phosphatase 55 40-136 U/L Troponin I < 0.028 <0.028 NG/ML C-Reactive Protein High Sensitivity 0.86 H 0.00-0.50 MG/DL Total Protein 8.5 H 6.4-8.2 GM/DL Albumin 4.7 H 3.2-4.5 GM/DL TSH Weld Testing 3.53 0.35-4.94 UIU/ML Serum Test, Qualitative NEGATIVE NEGATIVE My Orders Orders - AXEL RICO MD Cbc With Automated Diff (01/18/21 18:38) Comprehensive Metabolic Panel (01/18/21 18:38) Magnesium (01/18/21 18:38) Thyroid Analyzer (01/18/21 18:38) Ua Culture If Indicated (01/18/21 18:38) Ekg Tracing (01/18/21 18:38) Monitor-Rhythm Ecg Trace Only (01/18/21 18:38) Troponin I (01/18/21 18:38) Hs C Reactive Protein (01/18/21 19:05) Hcg,Qualitative Serum (01/18/21 19:05) Vital Signs/I&O 01/18/21 01/18/21 18:15 18:50 Temp 36.5 Pulse 91 94 Resp 18 18 B/P (MAP) 150/116 (127) 137/91 (106) Pulse Ox 100 99 O2 Delivery Room Air Room Air Blood Pressure Mean: 106 Progress Progress Note : Time: 19:30 Progress Note Patient was seen and examined promptly after arrival. She had no focal deficits on examination. She was feeling better by the time of the exam and continued to improve during her time in the ER. Labs and EKG were obtained. She was ob served on the night monitor. Since patient admitted to smoking marijuana, I offered a drug screen to determine if there was a cross exposure with other substances. She declined. She ultimately decided to leave AGAINST MEDICAL ADVICE prior to completion of her work-up. She now believes her symptoms were due to excess caffeine. I urged her to stay until lab results were available. She declined and signed an AMA paper. Labs resulted a few minutes later and were relatively unremarkable. Patient did not want to provide a urine specimen so no urinalysis was available. Patient was contacted with her lab results by phone. Initial ECG Impression Date: Jan 18, 2021 Initial ECG Impression Time: 18:30 Initial ECG Rate: 90 Initial ECG Rhythm: Normal Sinus Initial ECG Intervals: Normal Initial ECG Impression: Normal Comment Normal sinus rhythm with no ST elevation or depression. No abnormal intervals or axis deviation. Departure Impression Primary Impression: Palpitations Additional Impressions: Anxiety Asthenia Disposition: 07 AGAINST MEDICAL ADVICE Condition: Against Medical Advice Departure-Patient Inst. Referrals: [facility] (PCP/Family) Primary Care Physician AXEL RICO MD Jan 18, 2021 19:05
[2021-01-18 19:20] LABS: TSH (THYROID ANALYZER) 3.53 UIU/ML (0.35-4.94)
== END 2021-01-18 19:24 | disposition left against medical advice (07) ==
LOC: EDUNIT# 18:12 → ER 18:13
DX: R00.2 Palpitations (principal); F41.9 Anxiety disorder, unspecified; R53.1 Weakness; E11.9 Type 2 diabetes mellitus without complications; Z87.891 Personal history of nicotine dependence; Z79.84 Long term (current) use of oral hypoglycemic drugs
CPT/HCPCS: 36415; 80053; 83735; 84443; 84484; 84703; 85025; 86141; 93005; 93041

== ENCOUNTER 2021-04-26 23:02 | Emergency (ER) | payer MEDICAID ==
[~2021-04-26] VITALS: Ht 168 cm; Wt 97.5 kg
[2021-04-27 01:12] LABS: BILIRUBIN,URINE NEGATIVE (NEGATIVE); CLARITY,URINE CLOUDY; COLOR,URINE YELLOW; GLUCOSE, URINE (UA) NEGATIVE (NEGATIVE); KETONES,URINE NEGATIVE (NEGATIVE); LEUKOCYTE ESTERASE ,URINE NEGATIVE (NEGATIVE); NITRITE,URINE NEGATIVE (NEGATIVE); PH,URINE 5.5 (5-9); PROTEIN,URINE TRACE (NEGATIVE)
[2021-04-27] MEDS ORDERED: ONDA8TAB13 PO (01:56)
--- NOTE | 2021-04-27 01:56 | ED Cough/URI ---
General Chief Complaint: Cough/Cold/Flu Symptoms Stated Complaint: FEVER/HEADACHE/WEAKNESS Nursing Triage Note: chills, fatigue, right back pain since . Allergies and Home Medications Allergies Coded Allergies: No Known Drug Allergies (Unverified , 03/20/18) Home Medications Docusate Sodium 100 Mg Capsule, 100 MG PO BID PRN for CONSTIPATION-1ST LINE Prescribed by: HERB TRUONG on 03/22/181744 Hydrocodone Bit/Acetaminophen 1 Tab Tab, 1-2 TAB PO Q4H PRN for PAIN-MODERATE Prescribed by: HERB TRUONG on 03/22/181744 Ibuprofen 600 Mg Tablet, 600 MG PO Q6H Prescribed by: HERB TRUONG on 03/22/181744 Metformin HCl 500 Mg Tablet, 1,000 PO BID, (Reported) take 2 in am and 1 at night Ondansetron 8 Mg Tab.rapdis, 8 MG PO Q4H PRN for NAUSEA/VOMITING Prescribed by: LIZ AVILA on 04/27/21 0156 [id number]/Iron Fumarate/FA/Dss 1 Each Tablet, 1 EACH PO DAILY, (Reported) Past Mzfzzge-Qwmqay-Ccrhjj Hx Patient Social History Tobacco Use?: No Substance use?: Yes Substance type: Marijuana Alcohol Use?: No Pt feels they are or have been: No Immunizations Up To Date Tetanus Booster (TDap): Unknown Seasonal Allergies Seasonal Allergies: No Past Medical History Surgeries: Yes (LIPOMA FROM ABDX2, 2 ) Appendectomy, Section Respiratory: No Cardiac: No Neurological: No Reproductive Disorders: Yes Female Reproductive Disorders: Menstrual Problems Sexually Transmitted Disease: No HIV/AIDS: No Genitourinary: No Gastrointestinal: Yes Gastroesophageal Reflux Musculoskeletal: No Endocrine: Yes (GESTATIONAL DIABETES) Diabetes, Non-Insulin dep HEENT: No Loss of Vision: Denies Hearing Impairment: Denies Cancer: No Psychosocial: Yes (HX OF ANXIETY) Anxiety, Depression Integumentary: No Blood Disorders: No Adverse Reaction/Blood Tranf: No (N/A) Physical Exam Vital Signs - First Documented Capillary Refill : Less Than 3 Seconds Height: 5'6.00" Weight: 228lbs. 0.0oz. 103.660864pc; 34.00 BMI Method:Stated Progress/Results/Core Measures Suspected Sepsis SIRS Temperature: Pulse: 103 Respiratory Rate: 18 Blood Pressure 130 /78 Mean: 95 Results/Orders Lab Results Laboratory Tests Test 04/26/21 23:38 Range/Units Urine Color YELLOW Urine Clarity CLOUDY Urine pH 5.5 5-9 Urine Specific [place] >=1.030 1.016-1.022 Urine Protein TRACE H NEGATIVE Urine Glucose (UA) NEGATIVE NEGATIVE Urine Ketones NEGATIVE NEGATIVE Urine Nitrite NEGATIVE NEGATIVE Urine Bilirubin NEGATIVE NEGATIVE Urine Urobilinogen 0.2 < = 1.0 MG/DL Urine Leukocyte Esterase NEGATIVE NEGATIVE Urine RBC (Auto) 3+ H NEGATIVE Urine RBC 10-25 H /HPF Urine WBC 0-2 /HPF Urine Squamous Epithelial Cells >50 H /HPF Urine Crystals NONE /LPF Urine Bacteria LARGE H /HPF Urine Casts NONE /LPF Urine Mucus NEGATIVE /LPF Urine Culture Indicated NO Urine Test NEGATIVE NEGATIVE SARS-CoV-2 RNA (RT-PCR) Detected H Not Detecte My Orders Orders - LIZ AVILA DO Covid 19 Inhouse Test (04/26/21 23:23) Hcg,Qualitative Urine (04/26/21 23:55) Ua Culture If Indicated (04/26/21 23:55) Rx-Ondansetron Po (Rx-Zofran Po) (04/27/21 01:58) Vital Signs/I&O 04/26/21 04/26/21 23:23 23:23 Temp 37.8 Pulse 103 Resp 18 B/P (MAP) 130/78 (95) Pulse Ox 98 O2 Delivery Room Air Room Air Capillary Refill : Less Than 3 Seconds Blood Pressure Mean: 95 Departure Impression Primary Impression: COVID-19 virus infection Disposition: 01 HOME, SELF-CARE Condition: Stable Departure-Patient Inst. Referrals: [facility] (PCP/Family) Primary Care Physician Patient Instructions: COVID-19 (DC), Preventing the Spread of an Infectious Disease, REGEN-COV (casirivimab and imdevimab) FDA Fact Sheet, Urinary Tract Infection, Adult (DC) Add. Discharge Instructions: LOTS OF CLEAR LIQUIDS--WATER, BROTH, JELLO, GATORADE--DRINK ENOUGH SO YOU ARE URINATING EVERY 2-3 HOURS WHILE AWAKE BRATS DIET--BANANAS, RICE, APPLESAUCE, TOAST, SALTINES TYLENOL 1 GRAM/ MOTRIN 800 MG 4 TIMES A DAY FOR PAIN OR FEVER OVER THE COUNTER MEDICATIONS NEEDED FOR COUGH AND CONGESTION FOLLOW UP WITH [facility] IN 5-7 DAYS IF NO BETTER, RETURN TO ER IF WORSE QUARANTINE YOURSELF AND ALL HOUSEHOLD MEMBERS AND CLOSE CONTACTS FOR 2 WEEKS All discharge instructions reviewed with patient and/or family. Voiced understanding. Scripts Nitrofurantoin Monohyd/M-Cryst (Macrobid 100 mg Capsule) 100 Mg Capsule 1 TAB PO BID, #20 CAP Prov: LIZ AVILA DO 04/27/21 Ondansetron (Ondansetron Odt) 8 Mg Tab.rapdis 8 MG PO Q4H PRN for NAUSEA/VOMITING, #10 TAB Prov: LIZ AVILA DO 04/27/21 LIZ AVILA DO Apr 27, 2021 01:56
[2021-04-27 01:58] VITALS: BP 104/94
[2021-04-27] MEDS ORDERED: RX-ONDANSETRON 4 MG ODT (ZOFRAN) PPK #4 PO STA (01:58)
[2021-04-27 02:02] LABS: BACTERIA,URINE LARGE /HPF; SQUAMOUS EPITHELIAL CELL,UR >50 /HPF; WBC,URINE 0-2 /HPF
[2021-04-27] MEDS ORDERED: NITR-65 PO (02:10)
== END 2021-04-27 02:18 | disposition home or self-care (01) ==
LOC: EDUNIT# 23:02 → ER 23:05
DX: U07.1 COVID-19 (principal); E11.9 Type 2 diabetes mellitus without complications; Z79.84 Long term (current) use of oral hypoglycemic drugs
CPT/HCPCS: 81000; 84703; 87636; 99283

== ENCOUNTER 2021-04-28 03:06 | Emergency (ER) | payer MEDICAID ==
[~2021-04-28] VITALS: Ht 168 cm; Wt 97.5 kg
[~2021-04-28 03:06] MED LIST changes: +NITR-65 PO
[2021-04-28 03:43] LABS: BASOPHILS % (AUTO) 0 % (0-10); EOSINOPHILS % (AUTO) 0 % (0-10); HEMATOCRIT 43 % (35-52); HEMOGLOBIN 14.6 g/dL (11.5-16.0); LYMPHOCYTES # (AUTO) 3.4 10^3/uL (1.0-4.0); LYMPHOCYTES % (AUTO) 42 % (12-44); MEAN CORPUSCULAR HEMOGLOBIN 29 pg (25-34); MEAN CORPUSCULAR HGB CONC 34 g/dL (32-36); MEAN CORPUSCULAR VOLUME 84 fL (80-99); MEAN PLATELET VOLUME 9.9 fL (9.0-12.2); MONOCYTES # (AUTO) 0.9 10^3/uL (0.0-1.0); MONOCYTES % (AUTO) 11 % (0-12); NEUTROPHILS # (AUTO) 3.8 10^3/uL (1.8-7.8); NEUTROPHILS % (AUTO) 46 % (42-75); PLATELET COUNT 323 10^3/uL (130-400); WHITE BLOOD COUNT 8.1 10^3/uL (4.3-11.0)
[2021-04-28] MEDS ORDERED: LACTATED RINGERS 1,000 ML IV ONE (03:45)
[2021-04-28 04:03] LABS: POTASSIUM 3.4 MMOL/L (3.6-5.0)
[2021-04-28 04:04] LABS: CALCIUM 8.9 MG/DL (8.5-10.1)
[2021-04-28 04:08] LABS: CREATININE SERUM 0.85 MG/DL (0.60-1.30)
[2021-04-28 04:11] LABS: MAGNESIUM 1.7 MG/DL (1.6-2.4)
[2021-04-28 04:50] VITALS: BP 105/77
--- NOTE | 2021-04-28 04:50 | ED General ---
General Chief Complaint: Allergic Reaction Stated Complaint: COVID+,SOB Nursing Triage Note: reports feeling like throat swollen, c/o arm tingling possible tongue swelling x1 hr. Source of Information: Patient Exam Limitations: No Limitations History of Present Illness Date Seen by Provider: Apr 28, 2021 Time Seen by Provider: 03:25 Initial Comments This 40-year-old woman presents to the emergency room with concerning symptoms associated with Covid infection. She complains of a swelling sensation in the throat and at the back of the tongue. Allergies and Home Medications Allergies Coded Allergies: No Known Drug Allergies (Unverified , 03/20/18) Home Medications Docusate Sodium 100 Mg Capsule, 100 MG PO BID PRN for CONSTIPATION-1ST LINE Prescribed by: HERB TRUONG on 03/22/18 174 Hydrocodone Bit/Acetaminophen 1 Tab Tab, 1-2 TAB PO Q4H PRN for PAIN-MODERATE Prescribed by: HERB TRUONG on 03/22/18 174 Ibuprofen 600 Mg Tablet, 600 MG PO Q6H Prescribed by: HERB TRUONG on 03/22/18 174 Metformin HCl 500 Mg Tablet, 1,000 PO BID, (Reported) take 2 in am and 1 at night Nitrofurantoin Monohyd/M-Cryst 100 Mg Capsule, 1 TAB PO BID Prescribed by: LIZ VAILA on 04/27/21 0210 Ondansetron 8 Mg Tab.rapdis, 8 MG PO Q4H PRN for NAUSEA/VOMITING Prescribed by: LIZ AVILA on 04/27/21 0156 [id number]/Iron Fumarate/FA/Dss 1 Each Tablet, 1 EACH PO DAILY, (Reported) Past Ivwblsn-Hdyvxx-Xvwnad Hx Patient Social History Tobacco Use?: No Substance use?: Yes Substance type: Marijuana Alcohol Use?: No Pt feels they are or have been: No Immunizations Up To Date Tetanus Booster (TDap): Unknown Seasonal Allergies Seasonal Allergies: No Past Medical History Surgeries: Yes (LIPOMA FROM ABDX2, 2 ) Appendectomy, Section Respiratory: No Cardiac: No Neurological: No Reproductive Disorders: Yes Female Reproductive Disorders: Menstrual Problems Sexually Transmitted Disease: No HIV/AIDS: No Genitourinary: No Gastrointestinal: Yes Gastroesophageal Reflux Musculoskeletal: No Endocrine: Yes (GESTATIONAL DIABETES) Diabetes, Non-Insulin dep HEENT: No Loss of Vision: Denies Hearing Impairment: Denies Cancer: No Psychosocial: Yes (HX OF ANXIETY) Anxiety, Depression Integumentary: No Blood Disorders: No Adverse Reaction/Blood Tranf: No (N/A) Physical Exam Vital Signs Vital Signs - First Documented 04/28/21 03:15 Temp 37.0 Pulse 96 Resp 18 B/P (MAP) 105/89 (94) Pulse Ox 96 O2 Delivery Room Air Capillary Refill : Less Than 3 Seconds Height, Weight, BMI Height: 5'6.00" Weight: 228lbs. 0.0oz. 103.127870wd; 34.00 BMI Method:Stated Progress/Results/Core Measures Suspected Sepsis SIRS Temperature: Pulse: 96 Respiratory Rate: 18 Laboratory Tests 04/28/21 03:35: White Blood Count 8.1 Blood Pressure 105 /89 Mean: 94 Laboratory Tests 04/28/21 03:35: Creatinine 0.85, Platelet Count 323 Results/Orders Lab Results Laboratory Tests Test 04/28/21 03:35 Range/Units White Blood Count 8.1 4.3-11.0 10^3/uL Red Blood Count 5.13 H 3.80-5.11 10^6/uL Hemoglobin 14.6 11.5-16.0 g/dL Hematocrit 43 35-52 % Mean Corpuscular Volume 84 80-99 fL Mean Corpuscular Hemoglobin 29 25-34 pg Mean Corpuscular Hemoglobin Concent 34 32-36 g/dL Red Cell Distribution Width 12.5 10.0-14.5 % Platelet Count 323 130-400 10^3/uL Mean Platelet Volume 9.9 9.0-12.2 fL Immature Granulocyte % (Auto) 0 % Neutrophils (%) (Auto) 46 42-75 % Lymphocytes (%) (Auto) 42 12-44 % Monocytes (%) (Auto) 11 0-12 % Eosinophils (%) (Auto) 0 0-10 % Basophils (%) (Auto) 0 0-10 % Neutrophils # (Auto) 3.8 1.8-7.8 10^3/uL Lymphocytes # (Auto) 3.4 1.0-4.0 10^3/uL Monocytes # (Auto) 0.9 0.0-1.0 10^3/uL Eosinophils # (Auto) 0.0 0.0-0.3 10^3/uL Basophils # (Auto) 0.0 0.0-0.1 10^3/uL Immature Granulocyte # (Auto) 0.0 0.0-0.1 10^3/uL Sodium Level 134 L 135-145 MMOL/L Potassium Level 3.4 L 3.6-5.0 MMOL/L Chloride Level 102 98-107 MMOL/L Carbon Dioxide Level 18 L 21-32 MMOL/L Anion Gap 14 5-14 MMOL/L Blood Urea Nitrogen 11 7-18 MG/DL Creatinine 0.85 0.60-1.30 MG/DL Estimat Glomerular Filtration Rate 74 BUN/Creatinine Ratio 13 Glucose Level 136 H 70-105 MG/DL Calcium Level 8.9 8.5-10.1 MG/DL Magnesium Level 1.7 1.6-2.4 MG/DL My Orders Orders - AXEL RICO MD Basic Metabolic Panel (04/28/21 03:35) Cbc With Automated Diff (04/28/21 03:35) Magnesium (04/28/21 03:35) Ed Iv/Invasive Line Start (04/28/21 03:35) Lactated Ringers (Lr 1000 Ml Iv Solution (04/28/21 03:45) Medications Given in ED Current Medications Medications Dose Ordered Sig/Batool Route Start Time Stop Time Status Last Admin Dose Admin Lactated Ringer's 1,000 ml @ 0 mls/hr Q0M ONCE IV 04/28/21 03:45 04/28/21 03:47 DC 04/28/21 03:39 0 MLS/HR Vital Signs/I&O 04/28/21 03:15 Temp 37.0 Pulse 96 Resp 18 B/P (MAP) 105/89 (94) Pulse Ox 96 O2 Delivery Room Air Capillary Refill : Less Than 3 Seconds Blood Pressure Mean: 94 Departure Impression Primary Impression: COVID-19 virus infection Additional Impressions: Paresthesias Lightheadedness Disposition: 01 HOME, SELF-CARE Condition: Improved Departure-Patient Inst. Decision time for Depature: 04:48 Referrals: [facility] (PCP/Family) Primary Care Physician Patient Instructions: COVID-19 Overview, Paresthesia (DC), REGEN-COV (casirivimab and imdevimab) FDA Fact Sheet Add. Discharge Instructions: Continue to drink plenty of clear liquids. Follow through with your monoclonal antibody infusion tomorrow. You may take Tylenol and/or ibuprofen for pain or fever. Paresthesias, headaches, anxiety, changes in taste and smell, and other neurologic symptoms are common during COVID-19. If the symptoms are not tolerable or escalating, return to the ER for further evaluation. Call with questions or concerns. All discharge instructions reviewed with patient and/or family. Voiced understanding. AXEL RICO MD Apr 28, 2021 04:50
== END 2021-04-28 04:57 | disposition home or self-care (01) ==
LOC: EDUNIT# 03:06 → ER 03:09
DX: U07.1 COVID-19 (principal); R20.2 Paresthesia of skin; R42 Dizziness and giddiness; E11.9 Type 2 diabetes mellitus without complications; Z79.84 Long term (current) use of oral hypoglycemic drugs; Z79.899 Other long term (current) drug therapy
CPT/HCPCS: 36415; 80048; 83735; 85025

== ENCOUNTER → 2021-04-30 | Outpatient (CLI) | payer MEDICAID ==
[~2021-04-30] VITALS: Ht 167.7 cm; Wt 97.6 kg
[~2021-04-30] MED LIST changes: +CASIRIVIMAB/IMDEVIMAB 1,200 MG in NS (IVPB) 250 ML IV ONE; +EPINEPHrine INJECTION 1 MG/ML AMP IM PRN; +diphenhydrAMINE 50 MG/ML INJ (BENADRYL) IV PRN
[2021-04-30 10:00] VITALS: BP 122/78
[2021-04-30 11:17] VITALS: BP 119/85
== END ==
LOC: INFUSION 10:02
PROVIDERS: ATTEND Emergency Medicine
DX: Z23 Encounter for immunization (principal); U07.1 COVID-19

== ENCOUNTER 2021-11-26 23:42 | Emergency (ER) | payer MEDICAID ==
[~2021-11-26] VITALS: Ht 168 cm; Wt 98.0 kg
[~2021-11-26 23:42] MED LIST changes: -CASIRIVIMAB/IMDEVIMAB 1,200 MG in NS (IVPB) 250 ML IV ONE; -EPINEPHrine INJECTION 1 MG/ML AMP IM PRN; -diphenhydrAMINE 50 MG/ML INJ (BENADRYL) IV PRN
[2021-11-26] MEDS ORDERED: EXEN2AUT (23:55)
[2021-11-26] MEDS ORDERED: SERT-414 (23:55)
--- NOTE | 2021-11-27 00:13 | ED GU-Female ---
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 Patient states symptom onset this evening. She saw a clinic last week and had a transvaginal ultrasound done which reportedly showed an intrauterine gestational sac and she states another area of "darkness" adjacent to the sac. She has a follow-up appointment scheduled with Dr. Montiel on 04 December and another transvaginal ultrasound scheduled for 30 November. Patient is concerned she might be having a miscarriage. She denies any significant pelvic cramping. She has a burning discomfort in her lower abdomen. No burning with urination, increased frequency or urgency. No abnormal vaginal discharge other than the bleeding. She has had no prior issues with bleeding in previous pregnancies. No reported trauma. No recent fevers or chills. No diarrhea, black or bloody stools. All other review of systems reviewed and negative except as stated. Timing/Duration: this evening Severity/Quality: mild Location: suprapubic Radiation: none Activities at Onset: none Prior Genitourinary Problems: none Sexual [place] History: less than 2 months ago, single partner Modifying Factors: Improves With Other ("burning pain" lower abdomen) Allergies and Home Medications Allergies Coded Allergies: No Known Drug Allergies (Unverified , 03/20/18) Patient Home Medication List Home Medication List Reviewed: Yes Exenatide Microspheres (Bydureon Bcise) 2 Mg/0.85 Ml Auto.injct, (Reported) Entered as Reported by: SUDARSHAN JACK on 11/26/21 7290 Last Action: New Order Metformin HCl (Metformin HCl) 500 Mg Tablet, 1,000 PO BID, (Reported) Entered as Reported by: BRAYAN COLEMAN on 01/13/18 1608 Lqd033/Iron Fumarate/FA/Dss ( 19 Tablet) 1 Each Tablet, 1 EACH PO DAILY, (Reported) Entered as Reported by: HANNAH KWONG on 12/25/17 2300 Sertraline HCl (Sertraline HCl) 100 Mg Tablet, (Reported) Entered as Reported by: SUDARSHAN JACK on 11/26/21 2740 Last Action: New Order Discontinued Medications Docusate Sodium (Docusate Sodium) 100 Mg Capsule, 100 MG PO BID PRN for CONSTIPATION-1ST LINE Discontinued Reason: No Longer Taking Prescribed by: HERB TRUONG on 03/22/181744 Last Action: Discontinued Hydrocodone Bit/Acetaminophen (Lortab 5 Mg Tablet) 1 Tab Tab, 1-2 TAB PO Q4H PRN for PAIN-MODERATE Discontinued Reason: No Longer Taking Prescribed by: HERB TRUONG on 03/22/181744 Last Action: Discontinued Ibuprofen (Ibu) 600 Mg Tablet, 600 MG PO Q6H Discontinued Reason: No Longer Taking Prescribed by: HERB TRUONG on 03/22/181744 Last Action: Discontinued Nitrofurantoin Monohyd/M-Cryst (Macrobid 100 mg Capsule) 100 Mg Capsule, 1 TAB PO BID Discontinued Reason: No Longer Taking Prescribed by: LIZ AVILA on 04/27/21 0210 Last Action: Discontinued Ondansetron (Ondansetron Odt) 8 Mg Tab.rapdis, 8 MG PO Q4H PRN for NAUSEA/VOMITING Discontinued Reason: No Longer Taking Prescribed by: LIZ AVILA on 04/27/21 0156 Last Action: Discontinued Review of Systems Review of Systems Constitutional: see HPI EENTM: no symptoms reported Respiratory: no symptoms reported Cardiovascular: no symptoms reported Gastrointestinal: no symptoms reported Genitourinary: other (vaginal bleeding) Expected Date of Delivery: Jul 18, 2022 LMP: Oct 13, 2021 Musculoskeletal: no symptoms reported Skin: no symptoms reported Psychiatric/Neurological: No Symptoms Reported Past Ejocgmy-Shmfuw-Mfdpqz Hx Patient Social History Tobacco Use?: No Substance use?: No Alcohol Use?: No Pt feels they are or have been: No Immunizations Up To Date Tetanus Booster (TDap): Unknown Seasonal Allergies Seasonal Allergies: No Past Medical History Surgery/Hospitalization HX: c-sect x3, cholecystectomy, appendectomy, lipoma removal, niddm Surgeries: Yes (LIPOMA FROM ABDX2, 2 ) Appendectomy, Section Respiratory: No Cardiac: No Neurological: No Expected Date of Delivery: Jul 18, 2022 Reproductive Disorders: Yes Female Reproductive Disorders: Menstrual Problems Sexually Transmitted Disease: No HIV/AIDS: No Genitourinary: No Gastrointestinal: Yes Gastroesophageal Reflux Musculoskeletal: No Endocrine: Yes (GESTATIONAL DIABETES) Diabetes, Non-Insulin dep HEENT: No Loss of Vision: Denies Hearing Impairment: Denies Cancer: No Psychosocial: Yes (HX OF ANXIETY) Anxiety, Depression Integumentary: No Blood Disorders: No Adverse Reaction/Blood Tranf: No (N/A) Physical Exam Vital Signs Vital Signs - First Documented 11/26/21 23:50 Temp 36.0 Pulse 85 Resp 18 B/P (MAP) 118/70 (86) Pulse Ox 98 O2 Delivery Room Air Capillary Refill : Less Than 3 Seconds Height, Weight, BMI Height: 5'6.00" Weight: 228lbs. 0.0oz. 103.316042ut; 34.00 BMI Method:Stated General Appearance: WD/WN, no apparent distress Neck: normal inspection Cardiovascular: regular rate, rhythm Respiratory: lungs clear, normal breath sounds, no respiratory distress, no accessory muscle use Gastrointestinal: normal bowel sounds, soft, tenderness (mild suprapubic tende rness to palpation) Extremities: normal range of motion, non-tender, normal inspection, no pedal edema Neurologic/Psychiatric: alert, normal mood/affect, oriented x 3 Skin: normal color, warm/dry Progress/Results/Core Measures Suspected Sepsis SIRS Temperature: Pulse: 85 Respiratory Rate: 18 Laboratory Tests 11/27/21 00:16: White Blood Count 13.0H Blood Pressure 118 /70 Mean: 86 Laboratory Tests 11/27/21 00:16: Platelet Count 345 Results/Orders Lab Results Laboratory Tests Test 11/26/21 23:57 11/27/21 00:16 Range/Units Urine Color YELLOW Urine Clarity CLEAR Urine pH 6.0 5-9 Urine Specific Pooler 1.025 H 1.016-1.022 Urine Protein NEGATIVE NEGATIVE Urine Glucose (UA) NEGATIVE NEGATIVE Urine Ketones TRACE H NEGATIVE Urine Nitrite NEGATIVE NEGATIVE Urine Bilirubin NEGATIVE NEGATIVE Urine Urobilinogen 0.2 < = 1.0 MG/DL Urine Leukocyte Esterase NEGATIVE NEGATIVE Urine RBC (Auto) 3+ H NEGATIVE Urine RBC 2-5 H /HPF Urine WBC NONE /HPF Urine Squamous Epithelial Cells 2-5 /HPF Urine Crystals NONE /LPF Urine Bacteria TRACE /HPF Urine Casts NONE /LPF Urine Mucus NEGATIVE /LPF Urine Culture Indicated NO White Blood Count 13.0 H 4.3-11.0 10^3/uL Red Blood Count 4.53 3.80-5.11 10^6/uL Hemoglobin 12.9 11.5-16.0 g/dL Hematocrit 39 35-52 % Mean Corpuscular Volume 86 80-99 fL Mean Corpuscular Hemoglobin 29 25-34 pg Mean Corpuscular Hemoglobin Concent 33 32-36 g/dL Red Cell Distribution Width 12.3 10.0-14.5 % Platelet Count 345 130-400 10^3/uL Mean Platelet Volume 10.3 9.0-12.2 fL Immature Granulocyte % (Auto) 0 % Neutrophils (%) (Auto) 61 42-75 % Lymphocytes (%) (Auto) 31 12-44 % Monocytes (%) (Auto) 7 0-12 % Eosinophils (%) (Auto) 1 0-10 % Basophils (%) (Auto) 1 0-10 % Neutrophils # (Auto) 7.9 H 1.8-7.8 10^3/uL Lymphocytes # (Auto) 4.0 1.0-4.0 10^3/uL Monocytes # (Auto) 0.9 0.0-1.0 10^3/uL Eosinophils # (Auto) 0.2 0.0-0.3 10^3/uL Basophils # (Auto) 0.1 0.0-0.1 10^3/uL Immature Granulocyte # (Auto) 0.0 0.0-0.1 10^3/uL Human Chorionic Gonadotropin, Quant 1822 H <5 MIU/ML My Orders Orders - WANDA GERMAN MD Ed Iv/Invasive Line Start (11/27/21 00:12) Cbc With Automated Diff (11/27/21 00:12) Hcg,Quantitative (11/27/21 00:12) Ua Culture If Indicated (11/27/21 00:12) Abo Rh Type (11/27/21 00:12) Vital Signs/I&O Capillary Refill : Less Than 3 Seconds Blood Pressure Mean: 86 Progress Note : Time: 01:31 Progress Note Bedside ultrasound used to evaluate for IUP with heartbeat. I was able to perform transabdominal bedside ED ultrasound. I was able to visualize a gestational sac and I thought I saw a hint of a yolk sac. I was unable to identify heart tones. Patient states that she is actually bleeding heavier now than when she first arrived. Her quantitative hCG is 1800. She will follow up with Dr. Montiel tomorrow and has a transvaginal ultrasound scheduled for Tuesday. I reassured her. I advised her to drink plenty of fluids, she can take Tylenol for cramping. Pelvic rest recommended. No use of tampons. Return precautions discussed. I am also sending her home with an outpatient order to recheck her quantitative hCG on Tuesday. All questions are sought and answered. Patient is stable for discharge. Departure Impression Primary Impression: Threatened miscarriage in early Disposition: HOME, SELF-CARE Condition: Stable Departure-Patient Inst. Decision time for Depature: 01:32 Referrals: [facility] [place] Primary Care Physician DEEPIKA MONTIEL MD Patient Instructions: Threatened Miscarriage (DC) Add. Discharge Instructions: Drink plenty of fluids to stay well-hydrated. Iqja-scs-umyaeqq extra strength Tylenol, 2 tablets every 6 hours as needed for pain/cramping. If you have significantly heavy bleeding, feeling lightheaded or dizzy with standing up, especially if you have a passing out spell, you need to come back to the emergency department for reevaluation. Only use pads for vaginal bleeding. No tampons. Pelvic rest until you follow- up with Dr. Montiel. Come back to the hospital on Tuesday for a redraw of your hormone level. Your level today was 1822. An order has been provided for this test. Copy Copies To 1: DEEPIKA MONTIEL MD, KATHRYN M MD Nov 27, 2021 00:13
[2021-11-27 00:18] LABS: BILIRUBIN,URINE NEGATIVE (NEGATIVE); CLARITY,URINE CLEAR; COLOR,URINE YELLOW; GLUCOSE, URINE (UA) NEGATIVE (NEGATIVE); KETONES,URINE TRACE (NEGATIVE); LEUKOCYTE ESTERASE ,URINE NEGATIVE (NEGATIVE); NITRITE,URINE NEGATIVE (NEGATIVE); PROTEIN,URINE NEGATIVE (NEGATIVE)
[2021-11-27 00:29] LABS: BACTERIA,URINE TRACE /HPF
[2021-11-27 00:37] LABS: BASOPHILS # (AUTO) 0.1 10^3/uL (0.0-0.1); BASOPHILS % (AUTO) 1 % (0-10); EOSINOPHILS # (AUTO) 0.2 10^3/uL (0.0-0.3); EOSINOPHILS % (AUTO) 1 % (0-10); HEMATOCRIT 39 % (35-52); HEMOGLOBIN 12.9 g/dL (11.5-16.0); LYMPHOCYTES % (AUTO) 31 % (12-44); MEAN CORPUSCULAR HEMOGLOBIN 29 pg (25-34); MEAN CORPUSCULAR HGB CONC 33 g/dL (32-36); MEAN CORPUSCULAR VOLUME 86 fL (80-99); MEAN PLATELET VOLUME 10.3 fL (9.0-12.2); MONOCYTES # (AUTO) 0.9 10^3/uL (0.0-1.0); MONOCYTES % (AUTO) 7 % (0-12); NEUTROPHILS # (AUTO) 7.9 10^3/uL (1.8-7.8); NEUTROPHILS % (AUTO) 61 % (42-75); PLATELET COUNT 345 10^3/uL (130-400)
[2021-11-27 01:41] VITALS: BP 116/69
== END 2021-11-27 01:45 | disposition home or self-care (01) ==
LOC: EDUNIT# 23:42 → ER 23:45
DX: O20.0 Threatened abortion (principal); Z3A.01 Less than 8 weeks gestation of pregnancy
CPT/HCPCS: 36415; 81000; 84702; 85025; 86900; 86901

== ENCOUNTER → 2021-11-28 | Outpatient (CLI) | payer MEDICAID ==
[~2021-11-28] MED LIST changes: +EXEN2AUT; +SERT-414
== END ==
LOC: LABNPT 11:03
PROVIDERS: ATTEND Emergency Medicine
DX: O20.9 Hemorrhage in early pregnancy, unspecified (principal); Z3A.00 Weeks of gestation of pregnancy not specified
CPT/HCPCS: 84702

== ENCOUNTER 2022-06-24 16:00 | Emergency (ER) | payer MEDICAID ==
[~2022-06-24] VITALS: Ht 167 cm; Wt 104.0 kg
--- NOTE | 2022-06-24 16:19 | ED Head Injury ---
General Chief Complaint: Head/Cervical Problems Stated Complaint: HEADACHE,FEELS LIKE HEAD IS SWOLLEN History of Present Illness Date Seen by Provider: Jun 24, 2022 Time Seen by Provider: 16:18 Initial Comments Patient reports that she has had a headache every day for the past three weeks. Has been taking Tylenol/Ibuprofen at home for her symptoms. It helps take the edge off but states that the headache never completely go away. Last saw an eye doctor in the past 1-2 years. Denies numbness,tingling, weakness, or slurred speech. Reports that she has noticed occasional blurriness from right eye. Denies nausea, vomiting, diarrhea. Denies exposure to COVID that she is aware of. Initially thought that maybe her blood sugar was too high. She has not been checking her blood sugars at home. Was seen at [facility] this morning and has labs ordered tomorrow AM since she was not fasting today. They gave her a machine to check her blood sugars and report that she is running 140-160s today. Occurred: other (3 weeks) Severity: moderate Location: frontal Associated Systoms: No Chest Pain, No Cough, No Diaphoresis, No Fever/Chills; Headaches; No Malaise, No Nausea/Vomiting, No Syncope, No Weakness Allergies and Home Medications Allergies Coded Allergies: No Known Drug Allergies (Unverified , 03/20/18) Patient Home Medication List Home Medication List Reviewed: Yes Exenatide Microspheres (Bydureon Bcise) 2 Mg/0.85 Ml Auto.injct, (Reported) Entered as Reported by: SUDARSHAN JACK on 11/26/212354 Metformin HCl (Metformin HCl) 500 Mg Tablet, 1,000 PO BID, (Reported) Entered as Reported by: BRAYAN COLEMAN on 01/13/18 1608 Nwg633/Iron Fumarate/FA/Dss ( 19 Tablet) 1 Each Tablet, 1 EACH PO DAILY, (Reported) Entered as Reported by: HANNAH KWONG on 12/25/17 230 Sertraline HCl (Sertraline HCl) 100 Mg Tablet, (Reported) Entered as Reported by: SUDARSHAN JACK on 11/26/212354 Review of Systems Review of Systems Constitutional: No dizziness, No fever, No weakness Eyes: Denies Blindness; Blurred Vision (right eye at times); Denies Drainage, Denies Pain, Denies Photophobia Ears, Nose, Mouth, Throat: no symptoms reported Respiratory: No cough, No short of breath Cardiovascular: No chest pain, No palpitations Gastrointestinal: No abdominal pain, No nausea, No vomiting Musculoskeletal: no symptoms reported Skin: No pruritus, No rash Psychiatric/Neurological: Headache; Denies Weakness All Other Systems Reviewed Negative Unless Noted: Yes Past Svwhyya-Wsbwjz-Rtnbee Hx Immunizations Up To Date Tetanus Booster (TDap): Unknown Seasonal Allergies Seasonal Allergies: No Past Medical History Surgery/Hospitalization HX: c-sect x3, cholecystectomy, appendectomy, lipoma removal, niddm Surgeries: Yes (LIPOMA FROM ABDX2, 2 ) Appendectomy, Section Respiratory: No Cardiac: No Neurological: No Reproductive Disorders: Yes Female Reproductive Disorders: Menstrual Problems Sexually Transmitted Disease: No HIV/AIDS: No Genitourinary: No Gastrointestinal: Yes Gastroesophageal Reflux Musculoskeletal: No Endocrine: Yes (GESTATIONAL DIABETES) Diabetes, Non-Insulin dep HEENT: No Loss of Vision: Denies Hearing Impairment: Denies Cancer: No Psychosocial: Yes (HX OF ANXIETY) Anxiety, Depression Integumentary: No Blood Disorders: No Adverse Reaction/Blood Tranf: No (N/A) Family Medical History Reviewed Nursing Family Hx Physical Exam Vital Signs Vital Signs - First Documented 06/24/22 16:00 Temp 36.0 Pulse 62 Resp 18 B/P (MAP) 146/93 (110) Pulse Ox 97 Capillary Refill : Height, Weight, BMI Height: 5'6.00" Weight: 228lbs. 0.0oz. 103.079147ai; 34.00 BMI Method:Stated General Appearance: WD/WN, no apparent distress HEENT: PERRL/EOMI, normal ENT inspection, TMs normal, pharynx normal Neck: non-tender, full range of motion, supple, normal inspection, other (no meningeal signs appreciated on exam) Cardiovascular: regular rate, rhythm Respiratory: lungs clear, normal breath sounds, no respiratory distress, no accessory muscle use Gastrointestinal: normal bowel sounds, non tender, soft Psychiatric: alert, oriented x 3 Elder Coma Score Best Eye Response: (4) Open Spontaneously Best Verbal Response: (5) Oriented Best Motor Response: (6) Obeys Commands Progress/Results/Core Measures Results/Orders Lab Results Laboratory Tests Test 06/24/22 16:45 Range/Units White Blood Count 12.1 H 4.3-11.0 10^3/uL Red Blood Count 4.83 3.80-5.11 10^6/uL Hemoglobin 13.7 11.5-16.0 g/dL Hematocrit 42 35-52 % Mean Corpuscular Volume 86 80-99 fL Mean Corpuscular Hemoglobin 28 25-34 pg Mean Corpuscular Hemoglobin Concent 33 32-36 g/dL Red Cell Distribution Width 12.6 10.0-14.5 % Platelet Count 382 130-400 10^3/uL Mean Platelet Volume 10.1 9.0-12.2 fL Immature Granulocyte % (Auto) 0 % Neutrophils (%) (Auto) 61 42-75 % Lymphocytes (%) (Auto) 30 12-44 % Monocytes (%) (Auto) 7 0-12 % Eosinophils (%) (Auto) 1 0-10 % Basophils (%) (Auto) 0 0-10 % Neutrophils # (Auto) 7.4 1.8-7.8 10^3/uL Lymphocytes # (Auto) 3.6 1.0-4.0 10^3/uL Monocytes # (Auto) 0.9 0.0-1.0 10^3/uL Eosinophils # (Auto) 0.1 0.0-0.3 10^3/uL Basophils # (Auto) 0.1 0.0-0.1 10^3/uL Immature Granulocyte # (Auto) 0.0 0.0-0.1 10^3/uL Sodium Level 138 135-145 MMOL/L Potassium Level 4.1 3.6-5.0 MMOL/L Chloride Level 103 98-107 MMOL/L Carbon Dioxide Level 21 21-32 MMOL/L Anion Gap 14 5-14 MMOL/L Blood Urea Nitrogen 12 7-18 MG/DL Creatinine 0.79 0.60-1.30 MG/DL Estimat Glomerular Filtration Rate 95 BUN/Creatinine Ratio 15 Glucose Level 122 H 70-105 MG/DL Calcium Level 9.9 8.5-10.1 MG/DL Corrected Calcium 9.5 8.5-10.1 MG/DL Total Bilirubin 0.4 0.1-1.0 MG/DL Aspartate Amino Transf (AST/SGOT) 32 5-34 U/L Alanine Aminotransferase (ALT/SGPT) 36 0-55 U/L Alkaline Phosphatase 49 40-136 U/L C-Reactive Protein High Sensitivity 1.30 H 0.00-0.50 MG/DL Total Protein 8.1 6.4-8.2 GM/DL Albumin 4.5 3.2-4.5 GM/DL My Orders Orders - ROXI LI APRN Ct Head Wo (06/24/22 16:26) Cbc With Automated Diff (06/24/22 16:26) Comprehensive Metabolic Panel (06/24/22 16:26) Hs C Reactive Protein (06/24/22 16:26) Ketorolac Injection (Toradol Injection) (06/24/22 17:45) Medications Given in ED Current Medications Medications Dose Ordered Sig/Batool Route Start Time Stop Time Status Last Admin Dose Admin Ketorolac Tromethamine 60 mg ONCE ONCE IM 06/24/22 17:45 06/24/22 17:46 DC 06/24/22 17:46 60 MG Vital Signs/I&O 06/24/22 06/24/22 16:00 17:47 Temp 36.0 36.0 Pulse 62 62 Resp 18 18 B/P (MAP) 146/93 (110) 146/93 Pulse Ox 97 97 Progress Progress Note : Progress Note Patient presents to the ER for persistent headache for the past three weeks. Has been taking over the counter medications at home with mild improvement of symptoms. No focal neuro deficits appreciated on exam. Will order labs and CT scan. If scans look okay will give IM Toradol and Benadryl. 1735: Reviewed labs and CT scan with patient. Of note, her WBC and CRP were slightly elevated. No meningeal signs. Is afebrile. CT head was negative. These findings were reassurance to the patient. Has labs scheduled in the morning and is going to have them done. Instructed that she can continue Tylenol and Ibuprofen for pain. May also consider taking Benadryl every 4-6 hours as needed for headache. I did offer to give Benadryl IM while she was here and she declined. She states that she would rather take that medication at home. Reasons to return to the ER were discussed with patient. Diagnostic Imaging Diagonstic Imaging: CT Plain Films/CT/US/NM/MRI: head Comments NAME: MACY JOHNSON MED REC#: [id number] PT STATUS: REG ER : 1980 PHYSICIAN: ROXI LI APRN ADMIT DATE: 06/24/22/ER Signed Date of Exam:06/24/22 CT HEAD WO INDICATION: Headache, x3 weeks, right-sided. TECHNIQUE: Multiple contiguous axial images were obtained through the brain without the use of intravenous contrast. Auto Exposure Controls were utilized during the CT exam to meet ALARA standards for radiation dose reduction. Comparison made with 11/08/2013. There were no extra-axial fluid collections. No intracranial hemorrhage. No intracranial mass or mass effect. No midline shift. The ventricles are normal in size and position. There were no focal parenchymal abnormalities in the brain. Calvarial windows are unremarkable. IMPRESSION: Negative noncontrast brain CT. Dictated by: Dictated on workstation # [id number] Dict: 06/24/22 1707 Trans: 06/24/22 1745 [facility] [id number] Interpreted by: NISH STEVEN MD Electronically signed by: NISH STEVEN MD 06/24/22 1745 Departure Impression Primary Impression: Migraine Qualified Codes: G43.919 - Migraine, unspecified, intractable, without status migrainosus Disposition: HOME, SELF-CARE Condition: Stable Departure-Patient Inst. Decision time for Depature: 17:39 Ref[facility]: [facility] [place] Primary Care Physician Patient Instructions: Migraines (DC) Add. Discharge Instructions: 1. Home and rest. 2. Push fluids. 3. Alternate Tylenol/Ibuprofen as needed for pain. 4. Follow up with PCP as needed. 5. Consider taking Benadryl every 4-6 hours as needed for headache. 6. Alternate Tylenol/Ibuprofen as needed for pain. 7. Return here if worse or concerns. All discharge instructions reviewed with patient and/or family. Voiced understanding. ROXI LI APRN Jun 24, 2022 16:19
[2022-06-24 16:51] LABS: BASOPHILS # (AUTO) 0.1 10^3/uL (0.0-0.1); BASOPHILS % (AUTO) 0 % (0-10); EOSINOPHILS # (AUTO) 0.1 10^3/uL (0.0-0.3); EOSINOPHILS % (AUTO) 1 % (0-10); HEMATOCRIT 42 % (35-52); HEMOGLOBIN 13.7 g/dL (11.5-16.0); LYMPHOCYTES # (AUTO) 3.6 10^3/uL (1.0-4.0); LYMPHOCYTES % (AUTO) 30 % (12-44); MEAN CORPUSCULAR HEMOGLOBIN 28 pg (25-34); MEAN CORPUSCULAR HGB CONC 33 g/dL (32-36); MEAN CORPUSCULAR VOLUME 86 fL (80-99); MEAN PLATELET VOLUME 10.1 fL (9.0-12.2); MONOCYTES # (AUTO) 0.9 10^3/uL (0.0-1.0); MONOCYTES % (AUTO) 7 % (0-12); NEUTROPHILS # (AUTO) 7.4 10^3/uL (1.8-7.8); NEUTROPHILS % (AUTO) 61 % (42-75); PLATELET COUNT 382 10^3/uL (130-400); WHITE BLOOD COUNT 12.1 10^3/uL (4.3-11.0)
--- NOTE | 2022-06-24 17:10 | Diagnostic Imaging Report ---
INDICATION: Headache, x3 weeks, right-sided. TECHNIQUE: Multiple contiguous axial images were obtained through the brain without the use of intravenous contrast. Auto Exposure Controls were utilized during the CT exam to meet ALARA standards for radiation dose reduction. Comparison made with 11/08/2013. There were no extra-axial fluid collections. No intracranial hemorrhage. No intracranial mass or mass effect. No midline shift. The ventricles are normal in size and position. There were no focal parenchymal abnormalities in the brain. Calvarial windows are unremarkable. IMPRESSION: Negative noncontrast brain CT. Dictated by: Dictated on workstation # [id number]
[2022-06-24 17:17] LABS: ALBUMIN 4.5 GM/DL (3.2-4.5); POTASSIUM 4.1 MMOL/L (3.6-5.0)
[2022-06-24 17:18] LABS: CALCIUM 9.9 MG/DL (8.5-10.1)
[2022-06-24 17:19] LABS: TOTAL PROTEIN 8.1 GM/DL (6.4-8.2)
[2022-06-24 17:21] LABS: BILIRUBIN,TOTAL 0.4 MG/DL (0.1-1.0)
[2022-06-24 17:23] LABS: CREATININE SERUM 0.79 MG/DL (0.60-1.30)
[2022-06-24] MEDS ORDERED: KETOROLAC 60 MG/2 ML VIAL IM ONE (17:45)
[2022-06-24 17:47] VITALS: BP 146/93
== END 2022-06-24 17:49 | disposition home or self-care (01) ==
LOC: EDUNIT# 16:01 → ER 16:03
DX: G43.909 Migraine, unspecified, not intractable, without status migrainosus (principal); D72.829 Elevated white blood cell count, unspecified; R79.82 Elevated C-reactive protein (CRP)
CPT/HCPCS: 36415; 70450; 80053; 84703; 85025; 86141

== ENCOUNTER 2023-04-20 00:49 | Emergency (ER) | payer MEDICAID ==
[~2023-04-20] VITALS: Ht 167 cm; Wt 104.0 kg
[2023-04-20 00:57] VITALS: BP 128/83
[2023-04-20] MEDS ORDERED: DEXT30TA12 (01:02)
[2023-04-20] MEDS ORDERED: CELE-63 (01:02)
[2023-04-20] MEDS ORDERED: DEXT20TA8 (01:02)
[2023-04-20] MEDS ORDERED: METH-732 (01:02)
--- NOTE | 2023-04-20 01:51 | ED General ---
General Chief Complaint: Chest Wall Stated Complaint: LUMP ON STERNUM Nursing Triage Note: c/o back pain, lump on chest x1 week. generalized maliase Source of Information: Patient Exam Limitations: No Limitations History of Present Illness Date Seen by Provider: Apr 20, 2023 Time Seen by Provider: 01:06 Initial Comments Here with report of lump on her chest between her breasts that she is concerned about and states that it is causing her pain. She states that is causing her anxiety to get up as well. Worse when she is laying down and better when sitting up. She also has some difficulty swallowing. She is following her with her doctor who has her set up for mammogram and breast ultrasound due to the lump. She has had ultrasound of the thyroid as well and has a very small nodule and will have continuing follow-up for that. She notes that she has had some upper respiratory symptoms and itchy throat and mild cough recently with some chills and no fever. She is just very concerned about this lump and wants to make sure that there is not a mass in her chest otherwise. Timing/Duration: 1 Week Severity: Moderate Associated Systoms: Cough; No Nausea/Vomiting, No Shortness of Air, No Weakness Allergies and Home Medications Allergies Coded Allergies: No Known Drug Allergies (Unverified , 03/20/18) Patient Home Medication List Home Medication List Reviewed: Yes Celecoxib (Celecoxib) 200 Mg Capsule, (Reported) Entered as Reported by: SUDARSHAN JACK on 04/20/23101 Last Action: New Order Dextroamphetamine/Amphetamine (Amphetamine Salts 20 mg Tablet) 20 Mg Tablet, (Reported) Entered as Reported by: SUDARSHAN JACK on 04/20/23101 Last Action: New Order Dextroamphetamine/Amphetamine (Amphetamine Salts 30 mg Tablet) 30 Mg Tablet, (Reported) Entered as Reported by: SUDARSHAN JACK on 04/20/23101 Last Action: New Order Metformin HCl (Metformin HCl) 500 Mg Tablet, 1,000 PO BID, (Reported) Entered as Reported by: BRAYAN COLEMAN on 01/13/18 1608 Methocarbamol (Methocarbamol) 750 Mg Tablet, (Reported) Entered as Reported by: SUDARSHAN JACK on 04/20/23101 Last Action: New Order Discontinued Medications Exenatide Microspheres (Bydureon Bcise) 2 Mg/0.85 Ml Auto.injct, (Reported) Discontinued Reason: No Longer Taking Entered as Reported by: SUDARSHAN JACK on 11/26/212354 Last Action: Discontinued Enz166/Iron Fumarate/FA/Dss ( 19 Tablet) 1 Each Tablet, 1 EACH PO DAILY, (Reported) Discontinued Reason: No Longer Taking Entered as Reported by: HANNAH KWONG on 12/25/17 2300 Last Action: Discontinued Sertraline HCl (Sertraline HCl) 100 Mg Tablet, (Reported) Discontinued Reason: No Longer Taking Entered as Reported by: SUDARSHAN JACK on 11/26/212354 Last Action: Discontinued Review of Systems Review of Systems Constitutional: see HPI; No chills, No fever EENTM: nose congestion, throat pain Respiratory: cough; No short of breath Cardiovascular: chest pain (Anterior chest wall between breasts near lump noted) Gastrointestinal: No nausea, No vomiting Genitourinary: no symptoms reported Musculoskeletal: back pain (Chronic) Skin: No change in color, No lesions Past Kcdicua-T[facility]vrm-Yfokgg Hx Patient Social History Tobacco Use?: No Substance use?: Yes Substance type: Marijuana Alcohol Use?: No Pt feels they are or have been: No Immunizations Up To Date Tetanus Booster (TDap): Unknown First/Initial COVID19 Vaccinat: na Seasonal Allergies Seasonal Allergies: No Past Medical History Surgery/Hospitalization HX: c-sect x3, cholecystectomy, appendectomy, lipoma removal, niddm, gerd, anxiety, depression Surgeries: Yes (LIPOMA FROM ABDX2, 2 ) Appendectomy, Section Respiratory: No Cardiac: No Neurological: No Last Menstrual Period: Apr 10, 2023 Reproductive Disorders: Yes Female Reproductive Disorders: Menstrual Problems Sexually Transmitted Disease: No HIV/AIDS: No Genitourinary: No Gastrointestinal: Yes Gastroesophageal Reflux Musculoskeletal: No Endocrine: Yes (GESTATIONAL DIABETES) Diabetes, Non-Insulin dep HEENT: No Loss of Vision: Denies Hearing Impairment: Denies Cancer: No Psychosocial: Yes (HX OF ANXIETY) Anxiety, Depression Integumentary: No Blood Disorders: No Adverse Reaction/Blood Tranf: No (N/A) Family Medical History Reviewed Nursing Family Hx Physical Exam Vital Signs Vital Signs - First Documented 04/20/23 00:57 Temp 36.5 Pulse 83 Resp 16 B/P (MAP) 128/83 (98) Pulse Ox 96 O2 Delivery Room Air Capillary Refill : Less Than 3 Seconds Height, Weight, BMI Height: 5'6.00" Weight: 228lbs. 0.0oz. [id number]; 37.00 BMI Method:Stated General Appearance: WD/WN, Anxious HEENT: PERRL/EOMI, Pharyngeal Erythema; No Tonsillar Exudate, No Tonsillar Enlargement; Other (Mild nasal erythema) Neck: Non Tender, Supple Respiratory: Lungs Clear, Normal Breath Sounds Cardiovascular: Regular Rate, Rhythm, No Murmur Extremity: Normal Range of Motion Neurologic/Psychiatric: Alert, Oriented x3 Skin: Warm/Dry, Other (2 x 3 cm tissue density between the breast located to the left side that is mobile and there is no redness or lesions near this nor skin changes.) Progress/Results/Core Measures Suspected Sepsis SIRS Temperature: Pulse: 83 Respiratory Rate: 16 Blood Pressure 128 /83 Mean: 98 Results/Orders My Orders Orders - ROCIO FREGOSO MD Chest Pa/Lat (2 View) (04/20/23 01:37) Vital Signs/I&O 04/20/23 00:57 Temp 36.5 Pulse 83 Resp 16 B/P (MAP) 128/83 (98) Pulse Ox 96 O2 Delivery Room Air Capillary Refill : Less Than 3 Seconds Blood Pressure Mean: 98 Progress Note : Progress Note Seen and evaluated. We did discuss options for evaluation. We will go ahead and get two-view chest x-ray. This may be a lipoma but she does have breast ultrasound and mammogram requisitions and to be done in the near future. We will see what the chest x-ray shows. 0158: Chest x-ray 2 view does not show any infiltrate or lesions on my interpretation. Patient is very comforted by this. We did discuss that she may be coming down with viral upper respiratory infection which may be causing some body aches and certainly she has some upper respiratory symptoms. We did discuss OTC treatment for that. She will follow-u p with her doctor on Tuesday. Discharged home with return precautions. Patient verbalized understanding of instructions and agreement with plan. Departure Impression Primary Impression: Skin lesion of chest wall Additional Impression: Viral upper respiratory infection Disposition: HOME, SELF-CARE Condition: Stable Departure-Patient Inst. Decision time for Depature: 01:59 Referrals: [facility] (PCP/Family) Primary Care Physician Patient Instructions: Viral Upper Respiratory Infection, Adult (DC) Add. Discharge Instructions: All discharge instructions reviewed with patient and/or family. Voiced understanding. You do have a lesion on your chest and you do need the mammogram and breast ultrasound that you are getting scheduled. It is very likely that you have a viral upper respiratory infection. For that you may continue your celecoxib and may take acetaminophen 1000 mg every 6-8 hours. You may also use Afrin nasal spray or the generic, 12-hour relief, 2 sprays to each nostril twice daily for 3 days only and then stop. Do not use more than 3 days. Continue to drink plenty of fluids and try to get plenty of rest. Follow-up with your doctor as scheduled on Tuesday. Return for worse pain, weakness, breathing problems, fever, vomiting or other concerns as needed. ROCIO FREGOSO MD Apr 20, 2023 01:51
--- NOTE | 2023-04-20 07:22 | Diagnostic Imaging Report ---
INDICATION: Chest wall pain, cough The lungs clear. No failure, effusion or pneumothorax. IMPRESSION: No acute appearing abnormality. Dictated by: Dictated on workstation # [id number]
== END 2023-04-20 02:03 | disposition home or self-care (01) ==
LOC: EDUNIT# 00:49 → ER 00:53
DX: R05.9 Cough, unspecified (principal)
CPT/HCPCS: 71046

== ENCOUNTER 2023-05-30 17:38 | Emergency (ER) | payer MEDICAID ==
[~2023-05-30] VITALS: Ht 167.7 cm; Wt 97.9 kg
[~2023-05-30 17:38] MED LIST changes: +CELE-63; +DEXT20TA8; +DEXT30TA12; +METH-732
--- NOTE | 2023-05-30 18:25 | ED Back Pain ---
General Chief Complaint: Back Problems Stated Complaint: LOW BACK PAIN/LEFT LEG NUMBNESS/INCONTINENT Nursing Triage Note: PT AMB TO RM 6 WITH CC OF LEFT LOWER BACK PAIN AND INCONTIENCE. PT STATES THAT SHE HAS HAD BACK PAIN FOR 9 YEARS AND FOR THE LAST 6 MONTHS SHE HAS HAD AN INCREASE IN NUMBNESS AND TINGLING. PT STATES THAT SHE LOST HER BLADDER AN HOUR AGO WHEN SHE WAS STANDING BY HER NIGHTSTAND. Source of Information: Patient Exam Limitations: No Limitations History of Present Illness Date Seen by Provider: May 30, 2023 Time Seen by Provider: 18:00 Initial Comments This 43-year-old woman presents to the emergency room with concerns about back and neck pain associated with weakness in the left arm and left leg as well as new urinary incontinence. She has had progressive problems with pain in the neck and lower back. Over the past month she has noted weakness in the left leg. She occasionally has some weakness in the left arm and drops objects. She has a radicular-like pain that seems to be most prominent around her left elbow. The radicular pain in her left leg radiates from the left lateral buttock region down her lateral leg toward her ankle. Today she had an episode of incontinence. She did not feel any urge to urinate but suddenly felt urine running down her leg. Short time later she felt an urge to urinate but was unable to for about 20 minutes. When she was able to urinate, it was a trickle. At this time symptoms are unilateral. She denies any dysuria or hematuria. She has been to a chiropractor without improvement. She takes muscle relaxers which do help some. She is being referred to a specialist at [facility] in the near future. She has not had any MRI or CT studies done in the recent past. She has only had plain films. She notes falling a couple of times due to her left leg "giving out." She is emotionally distraught about her circumstances and is tearful in the exam room. She is prescribed hydrocodone for the pain but rarely takes it. Maria Victoria Carbone at the [facility] is her primary care provider. She was advised by her PCP to come to the emergency room if she ever developed incontinence issues related to her back pain. She therefore presented to the ER today. Allergies and Home Medications Allergies Coded Allergies: No Known Drug Allergies (Unverified , 03/20/18) Patient Home Medication List Home Medication List Reviewed: Yes Celecoxib (Celecoxib) 200 Mg Capsule, (Reported) Entered as Reported by: SUDARSHAN JACK on 04/20/23101 Cephalexin (Cephalexin) 500 Mg Tablet, 500 MG PO TID Prescribed by: AXEL WAYNE on 05/30/232130 Dextroamphetamine/Amphetamine (Amphetamine Salts 20 mg Tablet) 20 Mg Tablet, (Reported) Entered as Reported by: SUDARSHAN JACK on 04/20/23101 Dextroamphetamine/Amphetamine (Amphetamine Salts 30 mg Tablet) 30 Mg Tablet, (Reported) Entered as Reported by: SUDARSHAN JACK on 04/20/23101 Metformin HCl (Metformin HCl) 500 Mg Tablet, 1,000 PO BID, (Reported) Entered as Reported by: BRAYAN COLEMAN on 01/13/181607 Methocarbamol (Methocarbamol) 750 Mg Tablet, (Reported) Entered as Reported by: SUDARSHAN JACK on 04/20/23101 Methylprednisolone (Methylprednisolone Dose Pack) 4 Mg Tab.ds.pk, 4 MG PO UD Prescribed by: AXEL WAYNE on 05/30/232130 Review of Systems Constitutional: no symptoms reported EENTM: no symptoms reported Respiratory: no symptoms reported Cardiovascular: no symptoms reported Gastrointestinal: no symptoms reported Genitourinary: see HPI : No Musculoskeletal: see HPI Skin: no symptoms reported Psychiatric/Neurological: See HPI Past Pnurpei-Zwvwan-Pgkrhg Hx Patient Social History Tobacco Use?: No Substance use?: Yes Substance type: Marijuana Alcohol Use?: No Immunizations Up To Date Tetanus Booster (TDap): Unknown First/Initial COVID19 Vaccinat: na Second COVID19 Vaccination Eric: na Third COVID19 Vaccination Date: na Seasonal Allergies Seasonal Allergies: No Past Medical History Surgery/Hospitalization HX: c-sect x3, cholecystectomy, appendectomy, lipoma removal, niddm, gerd, anxiety, depression Surgeries: Yes (LIPOMA FROM ABDX2) Appendectomy, Section, Gallbladder Respiratory: No Cardiac: No Neurological: No Reproductive Disorders: Yes Female Reproductive Disorders: Menstrual Problems Sexually Transmitted Disease: No HIV/AIDS: No Genitourinary: No Gastrointestinal: Yes Gastroesophageal Reflux Musculoskeletal: Yes Degenerate Disk Disease, Chronic Back Pain Endocrine: Yes (GESTATIONAL DIABETES) Diabetes, Non-Insulin dep HEENT: No Loss of Vision: Denies Hearing Impairment: Denies Cancer: No Psychosocial: Yes (HX OF ANXIETY) Anxiety, Depression Integumentary: No Blood Disorders: No Adverse Reaction/Blood Tranf: No (N/A) Physical Exam Vital Signs Vital Signs - First Documented 05/30/23 17:51 Temp 36.6 Pulse 87 B/P (MAP) 141/97 (112) Pulse Ox 97 O2 Delivery Room Air Capillary Refill : Height, Weight, BMI Height: 5'6.00" Weight: 228lbs. 0.0oz. 103.992195sp; 34.00 BMI Method:Stated General Appearance: No Apparent Distress, WD/WN HEENT: Normal ENT Inspection Neck: Normal Inspection Cardiovascular: Regular Rate, Rhythm, No Murmur Respiratory: Lungs Clear, Normal Breath Sounds, No Accessory Muscle Use Gastrointestinal: Non Tender, Soft; No Distended Extremity: Normal Inspection, Non Tender, No Pedal Edema Neurologic/Psychiatric: Alert, Oriented x3, Normal Mood/Affect, coil strapper II-XII Norm as Tested, Motor Weakness (4/5 strength in the left leg) Skin: Normal Color, Warm/Dry Progress/Results/Core Measures Results/Orders Lab Results Laboratory Tests Test 05/30/23 18:04 05/30/23 18:28 Range/Units White Blood Count 13.0 H 4.3-11.0 10^3/uL Red Blood Count 4.71 3.80-5.11 10^6/uL Hemoglobin 13.5 11.5-16.0 g/dL Hematocrit 41 35-52 % Mean Corpuscular Volume 86 80-99 fL Mean Corpuscular Hemoglobin 29 25-34 pg Mean Corpuscular Hemoglobin Concent 33 32-36 g/dL Red Cell Distribution Width 12.4 10.0-14.5 % Platelet Count 387 130-400 10^3/uL Mean Platelet Volume 10.8 9.0-12.2 fL Immature Granulocyte % (Auto) 0 % Neutrophils (%) (Auto) 58 42-75 % Lymphocytes (%) (Auto) 33 12-44 % Monocytes (%) (Auto) 7 0-12 % Eosinophils (%) (Auto) 1 0-10 % Basophils (%) (Auto) 1 0-10 % Neutrophils # (Auto) 7.6 1.8-7.8 10^3/uL Lymphocytes # (Auto) 4.3 H 1.0-4.0 10^3/uL Monocytes # (Auto) 0.9 0.0-1.0 10^3/uL Eosinophils # (Auto) 0.2 0.0-0.3 10^3/uL Basophils # (Auto) 0.1 0.0-0.1 10^3/uL Immature Granulocyte # (Auto) 0.0 0.0-0.1 10^3/uL Sodium Level 136 135-145 MMOL/L Potassium Level 4.2 3.6-5.0 MMOL/L Chloride Level 105 98-107 MMOL/L Carbon Dioxide Level 21 21-32 MMOL/L Anion Gap 10 5-14 MMOL/L Blood Urea Nitrogen 17 7-18 MG/DL Creatinine 1.06 0.60-1.30 MG/DL Estimat Glomerular Filtration Rate 66 BUN/Creatinine Ratio 16 Glucose Level 143 H 70-105 MG/DL Calcium Level 9.6 8.5-10.1 MG/DL Magnesium Level 1.8 1.6-2.4 MG/DL Serum Test, Qualitative NEGATIVE NEGATIVE Urine Color YELLOW Urine Clarity CLEAR Urine pH 5.5 5-9 Urine Specific Manson >=1.030 1.016-1.022 Urine Protein NEGATIVE NEGATIVE Urine Glucose (UA) NEGATIVE NEGATIVE Urine Ketones NEGATIVE NEGATIVE Urine Nitrite NEGATIVE NEGATIVE Urine Bilirubin NEGATIVE NEGATIVE Urine Urobilinogen 0.2 < = 1.0 MG/DL Urine Leukocyte Esterase NEGATIVE NEGATIVE Urine RBC (Auto) NEGATIVE NEGATIVE Urine RBC NONE /HPF Urine WBC 0-2 /HPF Urine Squamous Epithelial Cells 5-10 /HPF Urine Crystals NONE /LPF Urine Bacteria MODERATE H /HPF Urine Casts NONE /LPF Urine Mucus NEGATIVE /LPF Urine Culture Indicated YES My Orders Orders - AXEL BELTRAN MD Ct Head/Cervical Spine Wo (05/30/23 18:23) Ct Thoracic/Lumbar Spine Wo (05/30/23 18:23) Basic Metabolic Panel (05/30/23 18:23) Cbc With Automated Diff (05/30/23 18:23) Hcg,Qualitative Serum (05/30/23 18:23) Magnesium (05/30/23 18:23) Ua Culture If Indicated (05/30/23 18:24) Bladder Scan (05/30/23 18:24) Urine Culture (05/30/23 18:28) Dexamethasone Tablet (Dexamethasone Ta (05/30/23 20:15) Dexamethasone Tablet (Dexamethasone Ta (05/30/23 20:15) Dexamethasone Tablet (Dexamethasone Ta (05/30/23 21:00) Cephalexin Capsule (Cephalexin Capsule) (05/30/23 21:30) Medications Given in ED Current Medications Medications Dose Ordered Sig/Batool Route Start Time Stop Time Status Last Admin Dose Admin Cephalexin HCl 500 mg ONCE ONCE PO 05/30/23 21:30 05/30/23 21:31 DC 05/30/23 21:37 500 MG Dexamethasone 3 mg ONCE ONCE PO 05/30/23 21:00 05/30/23 21:02 DC 05/30/23 21:06 3 MG Dexamethasone 6 mg ONCE ONCE PO 05/30/23 20:15 05/30/23 20:16 DC 05/30/23 21:00 6 MG Vital Signs/I&O 05/30/23 05/30/23 17:51 21:38 Temp 36.6 Pulse 87 B/P (MAP) 141/97 (112) 146/94 Pulse Ox 97 O2 Delivery Room Air 05/31/23 00:00 Output Total 224 ml Balance -224 ml Blood Pressure Mean: 112 Progress Progress Note : Progress Note Patient did not require any immediate treatment for pain in the ER. Labs were obtained, reviewed, and interpreted by me. CBC revealed a leukocytosis of 13. CBC was otherwise unremarkable. Chemistry studies showed mild hyperglycemia of 143. Chemistry was otherwise unremarkable. Urine demonstrated moderate bacteria but there were also squamous cells present. This could represent contamination. Culture will be obtained. Patient is being treated for possible urinary tract infection in the meantime. CT from brain through lumbar spine was obtained. These images were reviewed by me and there were no gross abnormalities appreciated on my interpretation. Radiologist interpretation is noted below. I was able to discuss this case with Dr. White, spine surgeon. He reviewed images himself and recommended urgent follow-up. He will have his office make arrangements with the patient for MRI and appointment in the office for Tuesday. In the meantime he recommends steroid therapy starting with dexamethasone up to 10 mg in the ER. A 9 mg dose was administered. A Medrol Dosepak was then prescribed. Dr. White's assistance was greatly appreciated. See discharge instructions for further discussion. Antibiotic therapy was started with Keflex for treatment of possible urinary tract infection. Diagnostic Imaging Diagonstic Imaging: CT Plain Films/CT/US/NM/MRI: c-spine, head Comments NAME: MACY JOHNSON [facility] REC#: [id number] PT STATUS: REG ER : 1980 PHYSICIAN: AXEL BELTRAN MD ADMIT DATE: 05/30/23/ER Draft Date of Exam:05/30/23 CT HEAD/CERVICAL SPINE WO PROCEDURE: CT head and CT cervical spine without contrast. TECHNIQUE: Multiple contiguous axial images were obtained through the brain and cervical spine without the use of intravenous contrast. Sagittal and coronal reformations through the cervical spine were then performed. Auto Exposure Controls were utilized during the CT exam to meet ALARA standards for radiation dose reduction. INDICATION: Neck pain. Left arm numbness and tingling. COMPARISON: 06/24/2022 FINDINGS: CT HEAD: Ventricles and cortical sulci are normal in size and contour. There is no midline shift or mass-effect. No acute intra-axial hemorrhage is seen. There are no abnormal areas of increased or decreased density to suggest acute hemorrhage or edema. No extra-axial masses or collections are present. The bony calvarium is intact. The visualized paranasal sinuses show mucosal retention cyst versus polyp in the left maxillary sinus. There is also mild scattered mucosal thickening. The mastoid air cells are clear. CT CERVICAL SPINE: Evaluation of static alignment shows straightening of the normal lordotic curvature of the cervical spine. This may be related to patient positioning, as well as underlying spasm. There is no significant anteroretrolisthesis. There is no evidence of jumped facets. Vertebral body heights are maintained. There is no acute fracture. No bony fragments are seen within the spinal canal. Mild multilevel degenerative changes are noted. Pre and paravertebral soft tissue structures are unremarkable. Included portions of the lung apices are clear. IMPRESSION: 1. No acute intracranial abnormality. No CT evidence of mass, acute infarct or intracranial hemorrhage. 2. No acute fracture or dislocation of the cervical spine. Dictated on workstation # [id number] Dict: 05/30/231903 Trans: 05/30/231907 [facility] [id number] Interpreted by: RISSA BRADLEY MD Diagonstic Imaging: CT Plain Films/CT/US/NM/MRI: other (Lumbothoracic spine) Comments NAME: MACY JOHNSON [facility] REC#: [id number] PT STATUS: REG ER : 1980 PHYSICIAN: AXEL BELTRAN MD ADMIT DATE: 05/30/23/ER Draft Date of Exam:05/30/23 CT THORACIC/LUMBAR SPINE WO PROCEDURE: CT thoracic and lumbar spine without contrast. TECHNIQUE: Multiple contiguous axial images were obtained through the thoracic and lumbar spine without the use of intravenous contrast. Sagittal and coronal reformations were then performed. All CT scans use one or more of the following dose optimizing techniques: automated exposure control, MA and/or KvP adjustment based on a patient size and exam type, or iterative reconstruction. INDICATION: Back pain. Left hip and leg pain. COMPARISON: None FINDINGS: CT THORACIC SPINE: Static alignment of the thoracic spine is maintained. There is no significant anteroretrolisthesis. There is no evidence of jumped facets. Vertebral body heights are preserved. There is no acute fracture. No bony fragments are seen within the spinal canal. Mild multilevel degenerative changes are noted. Pre and paravertebral soft tissue structures are unremarkable. Included portions of the lungs are clear. CT LUMBAR SPINE: Evaluation of static alignment shows slight dextroscoliotic deformity of the lower lumbar spine. There is no significant anteroretrolisthesis. There is no evidence of jumped facets. Vertebral body heights are maintained. There is no acute fracture. No bony fragments are seen within the spinal canal. Mild to moderate multilevel degenerative changes are noted consistent with intervertebral disc height loss with anterior and posterior disc osteophyte complex formations and multilevel facet arthropathy. These changes appear greatest at the L4-L5 level. Pre and paravertebral soft tissue structures are unremarkable. IMPRESSION: 1. No acute fracture or dislocation of the thoracic or lumbar spine. Dictated on workstation # [id number] Dict: 05/30/23 1906 Trans: 05/30/231912 [facility] [id number] Interpreted by: RISSA BRADLEY MD Departure Impression Primary Impression: Cervical spinal stenosis Additional Impressions: Neuroforaminal stenosis of lumbar spine Urinary incontinence Qualified Codes: R32 - Unspecified urinary incontinence Urinary retention Disposition: 01 HOME, SELF-CARE Condition: Stable Departure-Patient Inst. Decision time for Depature: 21:25 Referrals: [facility] (PCP/Family) Primary Care Physician Patient Instructions: Spinal stenosis Add. Discharge Instructions: There is possibility of urinary tract infection. Continue antibiotics until results of your urine culture are known. Results should be available in about 48 hours. You are being referred to Dr. White, a spine [employer] specialist. Expect a phone call from Dr. White's office tomorrow regarding scheduling an MRI and an appointment in his [place] clinic. Expect the MRI to be scheduled tomorrow if possible and the appointment to be Tuesday. In the meantime, start your Medrol dose pack (steroid) tomorrow morning. Monitor your blood sugars closely while you are on steroids and eat a diet very low in sugars and carbohydrates. If you need help controlling your blood sugars, please contact your primary care provider. If you have worsening symptoms despite following these instructions, please return to the emergency room. Consider presenting to the emergency emergency room to help expedite your care as Dr. WHITE is affiliated with [facility] and they have more robust MRI services at [facility]. Call Dr. White's office with questions or concerns. If you are having a difficulty with these arrangements and need assistance, please contact Dr. Beltran at [phone]. Wear your collar as much as possible. The firm collar will give more support. If the firm collar is not tolerated well, you may use a soft collar. Also schedule an appointment with your primary care physician as soon as possible. All discharge instructions reviewed with patient and/or family. Voiced understanding. Scripts Methylprednisolone (Methylprednisolone Dose Pack) 4 Mg Tab.ds.pk 4 MG PO UD for 6 Days, #21 PKG PER DOSE PACK INSTRUCTIONS Prov: AXEL BELTRAN MD 05/30/23 Cephalexin (Cephalexin) 500 Mg Tablet 500 MG PO TID, #20 TAB Prov: AXEL BELTRAN MD 05/30/23 Work/School Note: Work Release Form Date Seen in the Emergency Department: May 30, 2023 Return to Work: May 31, 2023 Other Restrictions Listed Below: No lifting over 10 pounds. No strenuous activity or bending. Restrictions: May need time off for follow-up appts several times next few weeks. Copy Copies To 1: [facility] Copies To 2: BLANCHE WHITE MD, JOSHUA T MD May 30, 2023 18:25
[2023-05-30 18:29] LABS: BASOPHILS # (AUTO) 0.1 10^3/uL (0.0-0.1); BASOPHILS % (AUTO) 1 % (0-10); EOSINOPHILS # (AUTO) 0.2 10^3/uL (0.0-0.3); EOSINOPHILS % (AUTO) 1 % (0-10); HEMATOCRIT 41 % (35-52); HEMOGLOBIN 13.5 g/dL (11.5-16.0); LYMPHOCYTES # (AUTO) 4.3 10^3/uL (1.0-4.0); LYMPHOCYTES % (AUTO) 33 % (12-44); MEAN CORPUSCULAR HEMOGLOBIN 29 pg (25-34); MEAN CORPUSCULAR HGB CONC 33 g/dL (32-36); MEAN CORPUSCULAR VOLUME 86 fL (80-99); MEAN PLATELET VOLUME 10.8 fL (9.0-12.2); MONOCYTES # (AUTO) 0.9 10^3/uL (0.0-1.0); MONOCYTES % (AUTO) 7 % (0-12); NEUTROPHILS # (AUTO) 7.6 10^3/uL (1.8-7.8); NEUTROPHILS % (AUTO) 58 % (42-75); PLATELET COUNT 387 10^3/uL (130-400)
[2023-05-30 18:48] LABS: CLARITY,URINE CLEAR; COLOR,URINE YELLOW; PH,URINE 5.5 (5-9)
[2023-05-30 18:49] LABS: BACTERIA,URINE MODERATE /HPF; BILIRUBIN,URINE NEGATIVE (NEGATIVE); GLUCOSE, URINE (UA) NEGATIVE (NEGATIVE); KETONES,URINE NEGATIVE (NEGATIVE); LEUKOCYTE ESTERASE ,URINE NEGATIVE (NEGATIVE); NITRITE,URINE NEGATIVE (NEGATIVE); PROTEIN,URINE NEGATIVE (NEGATIVE); WBC,URINE 0-2 /HPF
--- NOTE | 2023-05-30 19:09 | Diagnostic Imaging Report ---
PROCEDURE: CT head and CT cervical spine without contrast. TECHNIQUE: Multiple contiguous axial images were obtained through the brain and cervical spine without the use of intravenous contrast. Sagittal and coronal reformations through the cervical spine were then performed. Auto Exposure Controls were utilized during the CT exam to meet ALARA standards for radiation dose reduction. INDICATION: Neck pain. Left arm numbness and tingling. COMPARISON: 06/24/2022 FINDINGS: CT HEAD: Ventricles and cortical sulci are normal in size and contour. There is no midline shift or mass-effect. No acute intra-axial hemorrhage is seen. There are no abnormal areas of increased or decreased density to suggest acute hemorrhage or edema. No extra-axial masses or collections are present. The bony calvarium is intact. The visualized paranasal sinuses show mucosal retention cyst versus polyp in the left maxillary sinus. There is also mild scattered mucosal thickening. The mastoid air cells are clear. CT CERVICAL SPINE: Evaluation of static alignment shows straightening of the normal lordotic curvature of the cervical spine. This may be related to patient positioning, as well as underlying spasm. There is no significant anteroretrolisthesis. There is no evidence of jumped facets. Vertebral body heights are maintained. There is no acute fracture. No bony fragments are seen within the spinal canal. Mild multilevel degenerative changes are noted. Pre and paravertebral soft tissue structures are unremarkable. Included portions of the lung apices are clear. IMPRESSION: 1. No acute intracranial abnormality. No CT evidence of mass, acute infarct or intracranial hemorrhage. 2. No acute fracture or dislocation of the cervical spine. Dictated by: Dictated on workstation # [id number]
--- NOTE | 2023-05-30 19:13 | Diagnostic Imaging Report ---
PROCEDURE: CT thoracic and lumbar spine without contrast. TECHNIQUE: Multiple contiguous axial images were obtained through the thoracic and lumbar spine without the use of intravenous contrast. Sagittal and coronal reformations were then performed. All CT scans use one or more of the following dose optimizing techniques: automated exposure control, MA and/or KvP adjustment based on a patient size and exam type, or iterative reconstruction. INDICATION: Back pain. Left hip and leg pain. COMPARISON: None FINDINGS: CT THORACIC SPINE: Static alignment of the thoracic spine is maintained. There is no significant anteroretrolisthesis. There is no evidence of jumped facets. Vertebral body heights are preserved. There is no acute fracture. No bony fragments are seen within the spinal canal. Mild multilevel degenerative changes are noted. Pre and paravertebral soft tissue structures are unremarkable. Included portions of the lungs are clear. CT LUMBAR SPINE: Evaluation of static alignment shows slight dextroscoliotic deformity of the lower lumbar spine. There is no significant anteroretrolisthesis. There is no evidence of jumped facets. Vertebral body heights are maintained. There is no acute fracture. No bony fragments are seen within the spinal canal. Mild to moderate multilevel degenerative changes are noted consistent with intervertebral disc height loss with anterior and posterior disc osteophyte complex formations and multilevel facet arthropathy. These changes appear greatest at the L4-L5 level. Pre and paravertebral soft tissue structures are unremarkable. IMPRESSION: 1. No acute fracture or dislocation of the thoracic or lumbar spine. Dictated by: Dictated on workstation # [id number]
[2023-05-30 19:18] LABS: CALCIUM 9.6 MG/DL (8.5-10.1); CREATININE SERUM 1.06 MG/DL (0.60-1.30); MAGNESIUM 1.8 MG/DL (1.6-2.4); POTASSIUM 4.2 MMOL/L (3.6-5.0)
[2023-05-30] MEDS ORDERED: dexAMETHasone 6 MG TABLET PO ONE ×2 (20:15→21:00)
[2023-05-30] MEDS ORDERED: dexAMETHasone 4 MG TABLET PO ONE (20:15)
[2023-05-30] MEDS ORDERED: CEPHALEXIN 250 MG CAPSULE PO ONE (21:30)
[2023-05-30] MEDS ORDERED: METH4TAB10 PO (21:31)
[2023-05-30] MEDS ORDERED: CEPH500T PO (21:31)
[2023-05-30 21:38] VITALS: BP 146/94
== END 2023-05-30 21:40 | disposition home or self-care (01) ==
LOC: EDUNIT# 17:38 → ER 17:41
DX: M48.02 Spinal stenosis, cervical region (principal); M48.061 Spinal stenosis, lumbar region without neurogenic claudication; R32 Unspecified urinary incontinence; R33.9 Retention of urine, unspecified; D72.829 Elevated white blood cell count, unspecified
CPT/HCPCS: 70450; 72125; 72128; 72131; 80048; 81000; 83735; 84703; 85025; 87088; 99284; L0150; 36415

== ENCOUNTER 2023-06-16 16:17 | Emergency (ER) | payer MEDICAID ==
[~2023-06-16] VITALS: Ht 167.7 cm; Wt 98.8 kg
[~2023-06-16 16:17] MED LIST changes: +CEPH500T PO; +METH4TAB10 PO
--- NOTE | 2023-06-16 17:23 | ED Chest Pain ---
General Chief Complaint: Chest Pain Stated Complaint: NECK AND BACK PAIN THAT RADIATES TO CHEST Nursing Triage Note: PT AMB TO RM 10 WITH CC OF PAIN THE UPPER BACK BETWEEN SHOULDER BLADES THAT RADIATES TO THE RIGHT SHOULDER. PT REPORTS THAT SHE STARTED GABAPENTIN ON TUESDAY AND WOKE TUESDAY WITH PAIN. Source: patient Exam Limitations: no limitations History of Present Illness Date Seen by Provider: Jun 16, 2023 Time Seen by Provider: 17:03 Initial Comments 43-year-old female presents to the ER with complaint of pain in her mid upper back, states that it feels "like a bruise." She states the pain then wraps around her right upper back under her armpit to right chest and ends at her ster num. She states that the pain that radiates around her back to her chest feels like a sunburn. She states that the pain started on Tuesday, 06/13. She denies shortness of air with the pain. Allergies and Home Medications Allergies Coded Allergies: No Known Drug Allergies (Unverified , 03/20/18) Patient Home Medication List Home Medication List Reviewed: Yes Celecoxib (Celecoxib) 200 Mg Capsule, (Reported) Entered as Reported by: SUDARSHAN JACK on 04/20/23101 Cephalexin (Cephalexin) 500 Mg Tablet, 500 MG PO TID Prescribed by: AXEL WAYNE on 05/30/232130 Dextroamphetamine/Amphetamine (Amphetamine Salts 20 mg Tablet) 20 Mg Tablet, (Reported) Entered as Reported by: SUDARSHAN JACK on 04/20/23101 Dextroamphetamine/Amphetamine (Amphetamine Salts 30 mg Tablet) 30 Mg Tablet, (Reported) Entered as Reported by: SUDARSHAN JACK on 04/20/23101 Metformin HCl (Metformin HCl) 500 Mg Tablet, 1,000 PO BID, (Reported) Entered as Reported by: BRAYAN COLEMAN on 01/13/18 1608 Methocarbamol (Methocarbamol) 750 Mg Tablet, (Reported) Entered as Reported by: SUDARSHAN JACK on 04/20/23101 Methylprednisolone (Methylprednisolone Dose Pack) 4 Mg Tab.ds.pk, 4 MG PO UD Prescribed by: AXEL WAYNE on 05/30/232130 Valacyclovir HCl (Valacyclovir) 1,000 Mg Tablet, 1,000 MG PO Q8H Prescribed by: Jessica Houston on 06/16/23 184 Review of Systems Review of Systems Constitutional: see HPI Past Ggtjnyw-Ksafra-Hogdou Hx Patient Social History Tobacco Use?: No Substance use?: No Alcohol Use?: No Immunizations Up To Date Tetanus Booster (TDap): Unknown First/Initial COVID19 Vaccinat: na Second COVID19 Vaccination Eric: na Third COVID19 Vaccination Date: na Seasonal Allergies Seasonal Allergies: No Past Medical History Surgery/Hospitalization HX: c-sect x3, cholecystectomy, appendectomy, lipoma removal, niddm, gerd, anxiety, depression Surgeries: Yes (LIPOMA FROM ABDX2) Appendectomy, Section, Gallbladder Respiratory: No Cardiac: No Neurological: No Reproductive Disorders: Yes Female Reproductive Disorders: Menstrual Problems Sexually Transmitted Disease: No HIV/AIDS: No Genitourinary: No Gastrointestinal: Yes Gastroesophageal Reflux Musculoskeletal: Yes Degenerate Disk Disease, Chronic Back Pain Endocrine: Yes (GESTATIONAL DIABETES) Diabetes, Non-Insulin dep HEENT: No Loss of Vision: Denies Hearing Impairment: Denies Cancer: No Psychosocial: Yes (HX OF ANXIETY) Anxiety, Depression Integumentary: No Blood Disorders: No Adverse Reaction/Blood Tranf: No (N/A) Physical Exam Vital Signs Vital Signs - First Documented 06/16/23 16:39 Pulse 94 B/P (MAP) 124/94 (104) Pulse Ox 98 O2 Delivery Room Air Capillary Refill : Height, Weight, BMI Height: 5'6.00" Weight: 228lbs. 0.0oz. 103.088535ql; 35.00 BMI Method:Stated General Appearance: No Apparent Distress, WD/WN Neck: Normal Inspection, Supple Respiratory: Lungs Clear, Normal Breath Sounds, No Accessory Muscle Use, No Respiratory Distress Cardiovascular: Regular Rate, Rhythm Extremity: Normal Inspection, Normal Range of Motion Neurologic/Psychiatric: Alert, Normal Mood/Affect Skin: Normal Color, Warm/Dry, Other (Tenderness to palpation where patient's pain is located) Progress/Results/Core Measures Results/Orders Lab Results Laboratory Tests Test 06/16/23 16:55 Range/Units White Blood Count 13.7 H 4.3-11.0 10^3/uL Red Blood Count 4.43 3.80-5.11 10^6/uL Hemoglobin 12.5 11.5-16.0 g/dL Hematocrit 39 35-52 % Mean Corpuscular Volume 87 80-99 fL Mean Corpuscular Hemoglobin 28 25-34 pg Mean Corpuscular Hemoglobin Concent 33 32-36 g/dL Red Cell Distribution Width 12.6 10.0-14.5 % Platelet Count 369 130-400 10^3/uL Mean Platelet Volume 10.6 9.0-12.2 fL Immature Granulocyte % (Auto) 0 % Neutrophils (%) (Auto) 61 42-75 % Lymphocytes (%) (Auto) 30 12-44 % Monocytes (%) (Auto) 8 0-12 % Eosinophils (%) (Auto) 1 0-10 % Basophils (%) (Auto) 0 0-10 % Neutrophils # (Auto) 8.4 H 1.8-7.8 10^3/uL Lymphocytes # (Auto) 4.1 H 1.0-4.0 10^3/uL Monocytes # (Auto) 1.0 0.0-1.0 10^3/uL Eosinophils # (Auto) 0.1 0.0-0.3 10^3/uL Basophils # (Auto) 0.1 0.0-0.1 10^3/uL Immature Granulocyte # (Auto) 0.0 0.0-0.1 10^3/uL Prothrombin Time 12.3 12.2-14.7 SEC INR Comment 0.9 0.8-1.4 Activated Partial Thromboplast Time 35 24-35 SEC Sodium Level 138 135-145 MMOL/L Potassium Level 4.0 3.6-5.0 MMOL/L Chloride Level 104 98-107 MMOL/L Carbon Dioxide Level 24 21-32 MMOL/L Anion Gap 10 5-14 MMOL/L Blood Urea Nitrogen 14 7-18 MG/DL Creatinine 0.75 0.60-1.30 MG/DL Estimat Glomerular Filtration Rate 101 BUN/Creatinine Ratio 19 Glucose Level 110 H 70-105 MG/DL Calcium Level 9.6 8.5-10.1 MG/DL Corrected Calcium 9.4 8.5-10.1 MG/DL Magnesium Level 1.9 1.6-2.4 MG/DL Total Bilirubin 0.3 0.1-1.0 MG/DL Aspartate Amino Transf (AST/SGOT) 20 5-34 U/L Alanine Aminotransferase (ALT/SGPT) 29 0-55 U/L Alkaline Phosphatase 46 40-136 U/L Troponin I < 0.028 <0.028 NG/ML Total Protein 7.3 6.4-8.2 GM/DL Albumin 4.2 3.2-4.5 GM/DL My Orders Orders - JESSICA PEDERSON APRN Cbc And Automated Diff (06/16/23 17:16) Magnesium (06/16/23 17:16) Chest 1 View, Ap/Pa Only (06/16/23 17:16) Comprehensive Metabolic Panel (06/16/23 17:16) Protime With Inr (06/16/23 17:16) Partial Thromboplastin Time (06/16/23 17:16) Monitor-Rhythm Ecg Trace Only (06/16/23 17:16) Ed Iv/Invasive Line Start (06/16/23 17:16) Troponin I Robertson (06/16/23 17:16) Vital Signs/I&O 06/16/23 06/16/23 16:39 19:02 Pulse 94 87 B/P (MAP) 124/94 (104) 124/99 Pulse Ox 98 97 O2 Delivery Room Air Room Air Blood Pressure Mean: 104 Progress Progress Note : Progress Note Patient seen and evaluated, resting comfortably in bed, no acute distress. Based on exam and symptoms, cardiac work-up initiated including CBC, CMP, coags, magnesium, troponin, EKG, chest x-ray. 1840 Labs and chest x-ray reviewed. CBC shows slightly elevated WBC 13.7. CMP grossly normal. Troponin negative. Magnesium normal. Coags normal. Chest x- ray shows no acute cardiopulmonary process. I do not think that her pain is cardiac related. Based on symptoms, I believe that this could be shingles. No rash noted, but pain stays along the dermatome, states only on the right side of the body, patient reports pain when her clothes touch her skin, she reports that the pain feels like a sunburn. Will treat with valacyclovir. Results discussed with patient. Discharge directions and return precautions provided. Initial ECG Impression Date: Jun 16, 2023 Initial ECG Impression Time: 16:44 Initial ECG Rate: 90 Initial ECG Rhythm: Normal Sinus Initial ECG Intervals: Normal Initial ECG Impression: Normal Initial ECG Comparisson: Unchanged Diagnostic Imaging Diagonstic Imaging: Xray Plain Films/CT/US/NM/MRI: chest Comments [facility] [place] NAME: MACY JOHNSON [facility] REC#: [id number] PT STATUS: REG ER : 1980 PHYSICIAN: JESSICA PEDERSON APRN ADMIT DATE: 06/16/23/ER Signed Date of Exam:06/16/23 CHEST 1 VIEW, AP/PA ONLY EXAMINATION: Chest, one view. HISTORY: Chest pain. COMPARISON: 04/20/2023. FINDINGS: The lung volumes are normal. No focal consolidation is seen. No large pleural effusion or pneumothorax is seen. The cardiomediastinal silhouette is normal in size and contour. No acute osseous abnormality is seen. IMPRESSION: 1. No acute pleural-parenchymal process. Dictated by: Dictated on workstation # [id number] Dict: 06/16/231742 Trans: 06/16/231746 [id number] Interpreted by: MONISHA VALENTINO DO Electronically signed by: MONISHA VALENTINO DO 06/16/231746 Departure Impression Primary Impression: Berenice Disposition: 01 HOME, SELF-CARE Condition: Stable Departure-Patient Inst. Decision time for Depature: 18:42 Referrals: [facility] (PCP/Family) Primary Care Physician Patient Instructions: Berenice (VALENTE) Add. Discharge Instructions: Complete full course of the antiviral. You will take 1 tablet every 8 hours for 7 days. Follow-up with your primary care provider if symptoms continue after you complete the antiviral. Return for any new, concerning, or worsening symptoms. All discharge instructions reviewed with patient and/or family. Voiced understanding. Scripts Valacyclovir HCl (Valacyclovir) 1,000 Mg Tablet 1000 MG PO Q8H for 7 Days, #21 TAB 0 Refills Prov: JESSICA PEDERSON APRN 06/16/23 JESSICA PEDERSON APRN Jun 16, 2023 17:23
[2023-06-16 17:29] LABS: BASOPHILS # (AUTO) 0.1 10^3/uL (0.0-0.1); BASOPHILS % (AUTO) 0 % (0-10); EOSINOPHILS # (AUTO) 0.1 10^3/uL (0.0-0.3); EOSINOPHILS % (AUTO) 1 % (0-10); HEMATOCRIT 39 % (35-52); HEMOGLOBIN 12.5 g/dL (11.5-16.0); LYMPHOCYTES # (AUTO) 4.1 10^3/uL (1.0-4.0); LYMPHOCYTES % (AUTO) 30 % (12-44); MEAN CORPUSCULAR HEMOGLOBIN 28 pg (25-34); MEAN CORPUSCULAR HGB CONC 33 g/dL (32-36); MEAN CORPUSCULAR VOLUME 87 fL (80-99); MEAN PLATELET VOLUME 10.6 fL (9.0-12.2); MONOCYTES % (AUTO) 8 % (0-12); NEUTROPHILS # (AUTO) 8.4 10^3/uL (1.8-7.8); NEUTROPHILS % (AUTO) 61 % (42-75); PLATELET COUNT 369 10^3/uL (130-400); WHITE BLOOD COUNT 13.7 10^3/uL (4.3-11.0)
[2023-06-16 17:30] LABS: ALBUMIN 4.2 GM/DL (3.2-4.5); CHLORIDE 104 MMOL/L (98-107); SODIUM 138 MMOL/L (135-145)
[2023-06-16 17:31] LABS: CALCIUM 9.6 MG/DL (8.5-10.1)
[2023-06-16 17:32] LABS: GLUCOSE 110 MG/DL (70-105); TOTAL PROTEIN 7.3 GM/DL (6.4-8.2)
[2023-06-16 17:33] LABS: CARBON DIOXIDE 24 MMOL/L (21-32)
[2023-06-16 17:34] LABS: BILIRUBIN,TOTAL 0.3 MG/DL (0.1-1.0); INR 0.9 (0.8-1.4); PROTHROMBIN TIME PATIENT 12.3 SEC (12.2-14.7)
[2023-06-16 17:35] LABS: ALKALINE PHOSPHATASE 46 U/L (40-136)
[2023-06-16 17:36] LABS: CREATININE SERUM 0.75 MG/DL (0.60-1.30); GFR ESTIMATED 101
[2023-06-16 17:37] LABS: BUN/CREATININE RATIO 19
[2023-06-16 17:38] LABS: MAGNESIUM 1.9 MG/DL (1.6-2.4)
[2023-06-16 17:39] LABS: ALANINE AMINOTRANSFERASE 29 U/L (0-55)
--- NOTE | 2023-06-16 17:45 | Diagnostic Imaging Report ---
EXAMINATION: Chest, one view. HISTORY: Chest pain. COMPARISON: 04/20/2023. FINDINGS: The lung volumes are normal. No focal consolidation is seen. No large pleural effusion or pneumothorax is seen. The cardiomediastinal silhouette is normal in size and contour. No acute osseous abnormality is seen. IMPRESSION: 1. No acute pleural-parenchymal process. Dictated by: Dictated on workstation # [id number]
[2023-06-16] MEDS ORDERED: VALA10007 PO (18:44)
[2023-06-16 19:02] VITALS: BP 124/99
== END 2023-06-16 19:02 | disposition home or self-care (01) ==
LOC: EDUNIT# 16:17 → ER 16:20
DX: B02.9 Zoster without complications (principal); Z28.310 Unvaccinated for COVID-19
CPT/HCPCS: 36415; 71045; 80053; 83735; 84484; 85025; 85610; 85730; 93005; 93041